=== PATIENT | male | born 1940 | race Caucasian/White ===

== ENCOUNTER 2023-10-12 14:42 | Outpatient (RCR) | payer MEDICARE, OTHER, SELFPAY | END 2023-10-12 23:59 | disposition home or self-care (01) | LOC: RPT 14:42 | PROVIDERS: ATTENDING PHYSICIAN Internal Medicine Geriatric Medicine | DX: R26.0 Ataxic gait (principal); R26.2 Difficulty in walking, not elsewhere classified; M62.81 Muscle weakness (generalized); Z91.81 History of falling; Z73.6 Limitation of activities due to disability | CPT/HCPCS: 97110; 97112; 97162; 97530 ==

== ENCOUNTER 2023-11-22 11:32 | Outpatient (RCR) | payer MEDICARE, OTHER, SELFPAY | END 2023-11-22 23:59 | disposition home or self-care (01) | LOC: RST 11:32 | PROVIDERS: ATTENDING PHYSICIAN Internal Medicine Geriatric Medicine | DX: G20.C Parkinsonism, unspecified (principal); R41.841 Cognitive communication deficit | CPT/HCPCS: 96125; 97110; 97112; 97116; 97129; 97130; 97167; 97530 ==

== ENCOUNTER 2023-12-25 10:46 | Outpatient (RCR) | payer MEDICARE, OTHER, SELFPAY | END 2023-12-25 23:59 | disposition home or self-care (01) | LOC: RST 10:46 | PROVIDERS: ATTENDING PHYSICIAN Internal Medicine Geriatric Medicine | DX: R26.0 Ataxic gait (principal); Z91.81 History of falling; R41.841 Cognitive communication deficit; G20.C Parkinsonism, unspecified; R26.2 Difficulty in walking, not elsewhere classified; M62.81 Muscle weakness (generalized); Z73.6 Limitation of activities due to disability | CPT/HCPCS: 97110; 97112; 97116; 97129; 97130; 97530 ==

== ENCOUNTER → 2024-02-18 08:06 | Outpatient (REF) | payer MEDICARE, OTHER, SELFPAY ==
[2024-02-18 08:55] LABS: % Basophils 0.8 % (0-2); % Eosinophils 4.7 % (0-6); % Immature Granulocytes 0.3 % (0-0.5); % Lymphocytes 25.9 % (20.5-51.1); % Neutrophils 61.3 % (42.2-75.2); Absolute Basophils 0.1 10^3/uL (0-0.2); Absolute Eosinophils 0.3 10^3/uL (0-0.7); Absolute Lymphocytes 1.9 10^3/uL (1.2-3.4); Absolute Monocytes 0.5 10^3/uL (0.1-0.6); Absolute Neutrophils 4.4 10^3/uL (1.4-6.5); Hematocrit 40.5 % (39.0-52.0); Hemoglobin 13.2 g/dL (13.0-18.0); Mean Corp Hgb Conc. 32.6 g/dL (33.0-37.0); Mean Corpuscular Hgb 34.6 pg (27.0-31.0); Mean Platelet Volume 9.1 fL (7.4-10.4); Nucleated Red Blood Cells % 0 % (-); Platelet Count 194 10^3/uL (130-400); Red Blood Cell Count 3.82 10^6/uL (4.70-6.10); White Blood Cell Count 7.2 10^3/uL (4.8-10.8)
[2024-02-18 09:20] LABS: ALT (SGPT) 13 U/L (0-50); AST (SGOT) 13 U/L (17-59); Albumin 3.8 g/dl (3.5-5.0); Alkaline Phosphatase 107 U/L (38-126); Blood Urea Nitrogen 23 mg/dl (9-20); Calcium 9.3 mg/dl (8.4-10.2); Carbon Dioxide 27 mmol/L (22-30); Chloride 106 mmol/L (98-107); Glucose 90 mg/dl (70-99); HDL Cholesterol 58 mg/dl; LDL Cholesterol, Calculated 50 mg/dl; Potassium 4.6 mmol/L (3.5-5.1); Sodium 140 mmol/L (135-145); Total Bilirubin 0.6 mg/dl (0.2-1.3); Total Cholesterol 119 mg/dl (50-199); Total Protein 6.6 g/dl (6.3-8.2); Triglyceride 58 mg/dl (10-149); Very Low Density Lipoprotein 11 mg/dl (0-30); eGFR > 60.00
[2024-02-18 09:27] LABS: Vitamin D, 25-OH*** 54.4 ng/mL (30-80)
== END ==
LOC: REG 08:06
PROVIDERS: ATTENDING PHYSICIAN Internal Medicine Geriatric Medicine
DX: G20.A1 Parkinson's disease without dyskinesia, without mention of fluctuations (principal); E78.2 Mixed hyperlipidemia; I10 Essential (primary) hypertension; R26.0 Ataxic gait; R33.8 Other retention of urine; N40.1 Benign prostatic hyperplasia with lower urinary tract symptoms; F02.80 Dementia in other diseases classified elsewhere, unspecified severity, without behavioral disturbance, psychotic disturbance, mood disturbance, and anxiety; I49.3 Ventricular premature depolarization; Z91.81 History of falling; E55.9 Vitamin D deficiency, unspecified; Z13.89 Encounter for screening for other disorder
CPT/HCPCS: 36415; 80053; 80061; 82306; 85025

== ENCOUNTER → 2024-03-18 11:04 | Outpatient (REF) | payer MEDICARE, OTHER, SELFPAY | LOC: RCS 11:04 | PROVIDERS: ATTENDING PHYSICIAN Internal Medicine Cardiovascular Disease; FAMILY PHYSICIAN Internal Medicine Geriatric Medicine | DX: I34.0 Nonrheumatic mitral (valve) insufficiency (principal) | CPT/HCPCS: 93306 ==

== ENCOUNTER → 2024-03-20 13:05 | Outpatient (REF) | payer MEDICARE, OTHER, SELFPAY ==
[2024-03-20 15:22] LABS: Free T4 1.12 ng/dl (0.78-2.19)
[2024-03-20 15:36] LABS: TSH 2.14 uIU/ml (0.47-4.68)
[2024-03-20 15:55] LABS: Vitamin B12 477 pg/ml (239-931)
[2024-03-21 09:25] LABS: Glycohemoglobin (HgbA1c) 4.8 % (4.0-5.6)
[2024-03-23 02:24] LABS: ANA, IgG Reflex to HEp-2 Detected (None Detected)
== END ==
LOC: REG 13:05
PROVIDERS: ATTENDING PHYSICIAN Psychiatry & Neurology Neuromuscular Medicine; FAMILY PHYSICIAN Internal Medicine Geriatric Medicine
DX: E13.42 Other specified diabetes mellitus with diabetic polyneuropathy (principal); E03.9 Hypothyroidism, unspecified; G60.8 Other hereditary and idiopathic neuropathies; G62.2 Polyneuropathy due to other toxic agents; E53.8 Deficiency of other specified B group vitamins
CPT/HCPCS: 36415; 82607; 82784; 83036; 83521; 83921; 84155; 84165; 84439; 84443; 86038; 86334; 86618

== ENCOUNTER 2024-04-07 12:22 | Outpatient (RCR) | payer MEDICARE, OTHER, SELFPAY | END 2024-04-23 11:26 | disposition home or self-care (01) | LOC: RPT 12:22 | PROVIDERS: ATTENDING PHYSICIAN Internal Medicine Geriatric Medicine | DX: G20.A1 Parkinson's disease without dyskinesia, without mention of fluctuations (principal); R26.89 Other abnormalities of gait and mobility; Z73.6 Limitation of activities due to disability | CPT/HCPCS: 97162 ==

== ENCOUNTER 2024-04-09 10:48 | Emergency (ER) | payer MEDICARE, OTHER, SELFPAY ==
[2024-04-09 10:54] VITALS: BP 129/71
[2024-04-09 11:12] LABS: % Basophils 0.8 % (0-2); % Eosinophils 3.4 % (0-6); % Immature Granulocytes 0.3 % (0-0.5); % Lymphocytes 21.2 % (20.5-51.1); % Monocytes 5.6 % (1.7-9.3); % Neutrophils 68.7 % (42.2-75.2); Absolute Basophils 0.1 10^3/uL (0-0.2); Absolute Eosinophils 0.3 10^3/uL (0-0.7); Absolute Lymphocytes 1.6 10^3/uL (1.2-3.4); Absolute Monocytes 0.4 10^3/uL (0.1-0.6); Absolute Neutrophils 5.1 10^3/uL (1.4-6.5); Hemoglobin 13.8 g/dL (13.0-18.0); Mean Corp Hgb Conc. 34.5 g/dL (33.0-37.0); Mean Corpuscular Hgb 34.8 pg (27.0-31.0); Mean Corpuscular Volume 100.8 fL (80.0-94.0); Mean Platelet Volume 9.4 fL (7.4-10.4); Nucleated Red Blood Cells % 0 % (-); Platelet Count 185 10^3/uL (130-400); Red Blood Cell Count 3.97 10^6/uL (4.70-6.10); Red Cell Dist. Width 13.1 % (11.5-14.5); White Blood Cell Count 7.5 10^3/uL (4.8-10.8)
[2024-04-09 11:30] LABS: ALT (SGPT) < 10 U/L (0-50); AST (SGOT) 13 U/L (17-59); Albumin 4.3 g/dl (3.5-5.0); Alkaline Phosphatase 92 U/L (38-126); Blood Urea Nitrogen 21 mg/dl (9-20); Calcium 9.4 mg/dl (8.4-10.2); Carbon Dioxide 25 mmol/L (22-30); Chloride 103 mmol/L (98-107); Glucose 110 mg/dl (70-99); Potassium 4.1 mmol/L (3.5-5.1); Sodium 137 mmol/L (135-145); Total Protein 7.2 g/dl (6.3-8.2); eGFR > 60.00
[2024-04-09 11:34] VITALS: BP 134/69
[2024-04-09 12:00] VITALS: BP 136/64
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
[2024-04-09 12:57] LABS: Troponin I < 0.012 ng/ml
[2024-04-09 13:53] VITALS: BP 169/72
[2024-04-09 14:15] VITALS: BP 160/70; BP 169/72; BP 173/70; PULSE 63; PULSE 66; PULSE 68; O2SAT 98
--- NOTE | 2024-04-09 15:25 | CM ---
Chart reviewed. CM consult placed for discharge needs. CM introduced self and role.
also at bedisde. They were agreeable to PT's recommendations for home health care.
[facility] referral placed. In-house [facility] liaison also made aware. BERNARD also made aware.
== END 2024-04-09 15:22 | disposition home or self-care (01) ==
LOC: EMR 10:48
PROVIDERS: Physician Assistant; EMERGENCY PHYSICIAN Emergency Medicine; FAMILY PHYSICIAN Internal Medicine Geriatric Medicine
DX: R53.1 Weakness (principal); R26.2 Difficulty in walking, not elsewhere classified; W07.XXXA Fall from chair, initial encounter; F02.80 Dementia in other diseases classified elsewhere, unspecified severity, without behavioral disturbance, psychotic disturbance, mood disturbance, and anxiety; G20.C Parkinsonism, unspecified; D46.9 Myelodysplastic syndrome, unspecified; I10 Essential (primary) hypertension; N40.1 Benign prostatic hyperplasia with lower urinary tract symptoms; R33.8 Other retention of urine; Z79.82 Long term (current) use of aspirin; Z98.0 Intestinal bypass and anastomosis status; Z86.73 Personal history of transient ischemic attack (TIA), and cerebral infarction without residual deficits; Z87.442 Personal history of urinary calculi; Z87.440 Personal history of urinary (tract) infections; Z86.718 Personal history of other venous thrombosis and embolism; Z94.84 Stem cells transplant status; Z94.81 Bone marrow transplant status; Z88.1 Allergy status to other antibiotic agents
CPT/HCPCS: 99284; 70450; 71046; 80053; 84484; 85025; 93005

== ENCOUNTER → 2024-04-11 16:12 | Outpatient (REF) | payer MEDICARE, OTHER, SELFPAY ==
[2024-04-11 16:46] LABS: Urine Albumin 1+ (Neg - Trace); Urine Bilirubin Negative (Negative); Urine Character Very Cloudy (Clear); Urine Color Yellow; Urine Glucose Negative (Negative); Urine Ketone Trace (Negative); Urine Leukocyte 2+ (Negative); Urine Nitrite Positive (Negative); Urine Occult Blood Trace (Negative); Urine Urobilinogen Negative (Neg - 1+)
[2024-04-11 16:52] LABS: Urine Bacteria Many (Negative); Urine Mucus Many; Urine Red Blood Cell 0-2 /HPF (0-2); Urine White Cell >100 /HPF (0-5)
== END ==
LOC: REG 16:12
PROVIDERS: ATTENDING PHYSICIAN Nurse Practitioner Family
DX: R33.8 Other retention of urine (principal)
CPT/HCPCS: 81003; 81015; 87086

== ENCOUNTER → 2024-04-18 13:15 | Outpatient (REF) | payer MEDICARE, OTHER, SELFPAY ==
[2024-04-18 14:07] LABS: Urine Albumin Trace (Neg - Trace); Urine Bilirubin Negative (Negative); Urine Character Very Cloudy (Clear); Urine Color Yellow; Urine Glucose Negative (Negative); Urine Ketone 1+ (Negative); Urine Leukocyte 2+ (Negative); Urine Nitrite Positive (Negative); Urine Occult Blood 3+ (Negative); Urine Urobilinogen Negative (Neg - 1+)
[2024-04-18 14:24] LABS: Urine Triple Phosphate Crystal Present; Urine White Cell 30-40 /HPF (0-5)
[2024-04-18 14:25] LABS: Urine Amorphous Seen
[2024-04-18 14:26] LABS: Urine Bacteria Moderate (Negative)
== END ==
LOC: REG 13:15
PROVIDERS: ATTENDING PHYSICIAN Nurse Practitioner Family
DX: R82.90 Unspecified abnormal findings in urine (principal)
CPT/HCPCS: 81003; 81015; 87086

== ENCOUNTER → 2024-04-21 13:42 | Outpatient (REF) | payer MEDICARE, OTHER, SELFPAY | LOC: MRI 3T 13:42 | PROVIDERS: ATTENDING PHYSICIAN Psychiatry & Neurology Neuromuscular Medicine; FAMILY PHYSICIAN Internal Medicine Geriatric Medicine; REFERRING PHYSICIAN Psychiatry & Neurology Behavioral Neurology & Neuropsychiatry | DX: I63.312 Cerebral infarction due to thrombosis of left middle cerebral artery (principal); G62.9 Polyneuropathy, unspecified | CPT/HCPCS: 36415; 70551; 82784; 83521; 84155; 84165; 86334 ==

== ENCOUNTER → 2024-05-09 11:37 | Outpatient (REF) | payer MEDICARE, OTHER, SELFPAY ==
[2024-05-09 12:14] LABS: Urine Albumin 1+ (Neg - Trace); Urine Bilirubin Negative (Negative); Urine Character Very Cloudy (Clear); Urine Color Yellow; Urine Glucose Negative (Negative); Urine Ketone 1+ (Negative); Urine Leukocyte 2+ (Negative); Urine Nitrite Positive (Negative); Urine Occult Blood Trace (Negative); Urine Specific Gravity 1.025 (<1.030); Urine Urobilinogen Negative (Neg - 1+)
[2024-05-09 12:44] LABS: Urine Bacteria Many (Negative); Urine Red Blood Cell 0-2 /HPF (0-2); Urine Squamous Cell 0-2 /LPF (Few); Urine White Cell 60-70 /HPF (0-5)
== END ==
LOC: REG 11:37
PROVIDERS: ATTENDING PHYSICIAN Internal Medicine Geriatric Medicine
DX: R39.9 Unspecified symptoms and signs involving the genitourinary system (principal)
CPT/HCPCS: 81003; 81015; 87077; 87086

== ENCOUNTER 2024-05-17 16:21 | Inpatient (IN) | payer MEDICARE, OTHER, SELFPAY ==
[2024-05-17] VITALS (12 sets, daily range): BP systolic 113–179; BP diastolic 69–98; BMI 25.4; BMI 23.5
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
[2024-05-17 11:16] LABS: % Basophils 0.9 % (0-2); % Eosinophils 3.4 % (0-6); % Immature Granulocytes 0.3 % (0-0.5); % Lymphocytes 21.3 % (20.5-51.1); % Monocytes 8.4 % (1.7-9.3); % Neutrophils 65.7 % (42.2-75.2); Absolute Basophils 0.1 10^3/uL (0-0.2); Absolute Eosinophils 0.2 10^3/uL (0-0.7); Absolute Lymphocytes 1.4 10^3/uL (1.2-3.4); Absolute Monocytes 0.6 10^3/uL (0.1-0.6); Absolute Neutrophils 4.4 10^3/uL (1.4-6.5); Hematocrit 38.6 % (39.0-52.0); Hemoglobin 13.2 g/dL (13.0-18.0); Mean Corp Hgb Conc. 34.2 g/dL (33.0-37.0); Mean Corpuscular Hgb 34.4 pg (27.0-31.0); Mean Corpuscular Volume 100.5 fL (80.0-94.0); Mean Platelet Volume 9.1 fL (7.4-10.4); Nucleated Red Blood Cells % 0 % (-); Platelet Count 187 10^3/uL (130-400); Red Blood Cell Count 3.84 10^6/uL (4.70-6.10); Red Cell Dist. Width 13.1 % (11.5-14.5); White Blood Cell Count 6.8 10^3/uL (4.8-10.8)
[2024-05-17 11:30] LABS: ALT (SGPT) < 10 U/L (0-50); AST (SGOT) 22 U/L (17-59); Albumin 3.7 g/dl (3.5-5.0); Alkaline Phosphatase 103 U/L (38-126); Blood Urea Nitrogen 16 mg/dl (9-20); Calcium 9.1 mg/dl (8.4-10.2); Carbon Dioxide 29 mmol/L (22-30); Chloride 101 mmol/L (98-107); Glucose 94 mg/dl (70-99); Potassium 4.3 mmol/L (3.5-5.1); Sodium 137 mmol/L (135-145); Total Bilirubin 0.8 mg/dl (0.2-1.3); Total Protein 6.5 g/dl (6.3-8.2); eGFR > 60.00
[2024-05-17 11:41] LABS: COVID-19 Antigen Negative (Negative)
[2024-05-17 12:29] LABS: NT-proBNP 460 pg/ml
[2024-05-17 12:33] LABS: Urine Albumin Negative (Neg - Trace); Urine Bilirubin Negative (Negative); Urine Character Clear (Clear); Urine Color Yellow; Urine Glucose Negative (Negative); Urine Ketone Trace (Negative); Urine Leukocyte 1+ (Negative); Urine Nitrite Negative (Negative); Urine Occult Blood Negative (Negative); Urine Specific Gravity 1.015 (<1.030); Urine Urobilinogen Negative (Neg - 1+)
[2024-05-17 13:00] LABS: Urine Bacteria Few (Negative); Urine Red Blood Cell 0-2 /HPF (0-2); Urine Squamous Cell 0-2 /LPF (Few)
--- NOTE | 2024-05-17 14:10 | HPS.HSE ---
Family Physician
-
Family Physician: Jeremi Lund
Chief Complaint
-
weakness
History of Present Illness
HPI: 84-year-old male from home with PMH dementia, Parkinson's, chronic indwelling Harrison managed by Dr. Shah, HTN, HLD, stroke, MDS s/p stem cell transplant; p/w generalized weakness which has been waxing and waning over the last month. He
apparently also had some cloudy urine from his Harrison and decreased mental status (more sluggish and sleepy with less appetite).
His urine was tested twice by his primary care office and both were inconclusive or mixed angelo. Family started the pt with a 7-day course of Cipro on 04/28 and patient appeared to have gotten better. When they stopped the Cipro, he seemed to rebound
and declined again.
On 05/09, his urine culture grew multidrug-resistant E. coli. It was sensitive to nitrofurantoin so he was started on that and has taken several doses.
He seemed to have gotten better but declined again.
On DOA, he was unable to get out of bed, and his could not get him dressed. She feels that she could not take take of patient at home.
Medical History
Past Medical History
Past Medical History: Reports Other
Additional Past Medical History:
dementia,
Parkinson's,
chronic indwelling Harrison managed by Dr. Shah,
HTN,
HLD,
stroke,
MDS s/p stem cell transplant
Past Surgical History: Reports Other
Social History
Tobacco: Former Smoker (quit 25 years ago )
Alcohol: None
Personal:
Living: With Family
Family History
Family History: Not pertinent
Allergies / Home Medications
Allergies reflects when Allergies were last updated in [facility].
Home Medications with original date entered in [facility]
Allergy/Medication List:
Allergies
Allergy/AdvReac Type Severity Reaction Status Date / Time
sulfamethoxazole Allergy Unknown Unknown Verified 05/17/24 13:32
[From Bactrim]
trimethoprim [From Bactrim] Allergy Unknown Unknown Verified 05/17/24 13:32
levofloxacin [From Levaquin] Allergy Mental Verified 09/12/21 12:29
confusion
- 'went
blank'
Home Medications
acyclovir 800 mg tablet 800 mg PO BID Infection 10/11/20
atorvastatin 20 mg tablet 20 mg PO DAILY High cholesterol 10/11/20
memantine 10 mg tablet 10 mg PO BID memory 10/11/20
multivitamin with folic acid 400 mcg tablet (Tab-A-Piedad) 1 tab PO DAILY Supplement 10/11/20
rivastigmine 4.6 mg/24 hour transdermal patch 1 patch transdermal DAILY parkinson 10/11/20
ascorbic acid (vitamin C) 500 mg tablet (Vitamin C) 500 mg PO DAILY 05/17/24
carbidopa 25 mg-levodopa 100 mg tablet 1 tab PO BID@0800,1300,2000 05/17/24
carbidopa ER 25 mg-levodopa 100 mg tablet,extended release 1 tab PO HS 05/17/24
ipratropium bromide 21 mcg (0.03 %) nasal spray 2 spray intranasal BID 05/17/24
methenamine hippurate 1 gram tablet 1 g PO BID 05/17/24
nitrofurantoin monohydrate/macrocrystals 100 mg capsule 100 mg PO Q12H 05/17/24
peg 400-propylene glycol (PF) 0.4 %-0.3 % eye drops in a dropperette (Systane (PF)) 1 drp BOTH EYES 6XD PRN dry eyes 05/17/24
Review of Systems
-
Neurological: Reports See HPI and Weakness
Physical Exam
Vital Signs
Vital Signs
Temp Pulse Resp BP Pulse Ox
37.0 C 69 12 168/77 98
05/17/24 09:57 05/17/24 13:00 05/17/24 13:00 05/17/24 13:00 05/17/24 13:00
Physical Exam
General: Well Developed, Well Nourished, No Apparent Distress, Comfortable, Conversant and Appears Chronically Ill
HEENT: NormoCephalic, Moist mucous membranes and Atraumatic
Respiratory: Clear and Non Labored Respirations; No Accessory Resp Muscle Use
Cardiac: S1/S2 and Regular Rhythm; No Murmur or Rub
GI: Soft, Non Tender, Non Distended and Normal Bowel Sounds; No Organomegaly
Rectal: Deferred by Provider
Musculoskeletal: No Clubbing, No Cyanosis, Edema, Left Lower Extremity (mild) and Edema, Right Lower Extremity (mild)
Skin: No Rash
Neuro: Awake and Alert
Psych: Calm and Intact Judgment/Insight (somewhat)
Laboratory Results
-
05/17/24 10:59
05/17/24 10:59
Laboratory Results
Total Bilirubin 0.8 mg/dl (0.2-1.3) 05/17/24 10:59
AST 22 U/L (17-59) 05/17/24 10:59
ALT < 10 U/L (0-50) 05/17/24 10:59
Alkaline Phosphatase 103 U/L (38-126) 05/17/24 10:59
Data Reviewed
-
Lab Data: Labs Reviewed by me
Impression/Plan
-
HPI: 84-year-old male from home with PMH dementia, Parkinson's, chronic indwelling Harrison managed by Dr. Shah, HTN, HLD, stroke, MDS s/p stem cell transplant; p/w generalized weakness which has been waxing and waning over the last month. He
apparently also had some cloudy urine from his Harrison and decreased mental status (more sluggish and sleepy with less appetite).
His urine was tested twice by his primary care office and both were inconclusive or mixed angelo. Family started the pt with a 7-day course of Cipro on 04/28 and patient appeared to have gotten better. When they stopped the Cipro, he seemed to rebound
and declined again.
On 05/09, his urine culture grew multidrug-resistant E. coli. It was sensitive to nitrofurantoin so he was started on that and has taken several doses.
He seemed to have gotten better but declined again.
On DOA, he was unable to get out of bed, and his could not get him dressed. She feels that she could not take take of patient at home.
A/P:
# Generalized weakness, may be due to recurrent complicated UTI vs progression of Parkinson's and dementia
# UTI is related to chronic Harrison
Of note, patient was recently treated with Cipro started on 04/28 for 7 days, then nitrofurantoin started on 05/09
Follow urine culture
Start empiric antibiotic with Merrem until culture result is out
PT OT eval
CT head ordered in ER for his weakness, follow-up report
Chronic harrison was changed in ED on admission
# Mild BL LE edema
IV Lasix 20 mg x1
Recent echo from 02/2024: EF 55 and 60% with mild concentric LVH and stage II diastolic dysfunction. Mild mitral regurgitation.
# Dementia
# Parkinson's disease
# History of stroke
# Ambulatory dysfunction
Cont GRAPHICS MANAGER meds
PT OT eval
# Chronic indwelling Harrison managed
# h/o BPH
Chronic harrison was changed in ED on admission
# HLD
statin
# Essential HTN
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
Cont GRAPHICS MANAGER chronic Acyclovir
DVT ppx: Lovenox SQ
Full code for now unless changes later
[2024-05-17] MEDS: LASIX 20 MG IV (16:23)
--- NOTE | 2024-05-17 18:10 | PTCARENOTE ---
Patient admitted from ED into room 436-2, pulled over from stretcher to bed. AAOx3. Patient with rivastigmine patch to L chest. Daughter and at bedside, oriented to plan of care. Call palacio within reach, bed alarm in place.
[2024-05-17] MEDS: LOVENOX 40 MG SC (19:06)
[2024-05-17] MEDS: MERREM 500 MG IV (19:47)
[2024-05-17] MEDS: STERILE WATER FOR INJECTION 10 ML IV (19:48)
[2024-05-17] MEDS: ZOVIRAX 800 MG PO (19:49)
[2024-05-17] MEDS: NAMENDA 10 MG PO (19:49)
[2024-05-17] MEDS: SINEMET 25-100 1 TABLET PO (19:49)
[2024-05-17] MEDS: FLUSH (NSS) 1 FLUSH IV (19:51)
[2024-05-17] MEDS: SINEMET CR 25-100 (EXTENDED RELEASE) 1 TABLET PO (21:39)
[2024-05-18] MEDS: MERREM 500 MG IV ×4 (02:09→20:02)
[2024-05-18] MEDS: STERILE WATER FOR INJECTION 10 ML IV ×4 (02:09→20:01)
[2024-05-18 07:00] VITALS: BP 153/76
[2024-05-18] MEDS: EXELON PATCH 4.6 MG TRANSDERM (07:27)
[2024-05-18] MEDS: SINEMET 25-100 1 TABLET PO ×3 (07:29→20:02)
[2024-05-18] MEDS: ZOVIRAX 800 MG PO ×2 (07:29→20:02)
[2024-05-18] MEDS: LIPITOR 20 MG PO (07:29)
[2024-05-18] MEDS: NAMENDA 10 MG PO ×2 (07:29→20:02)
--- NOTE | 2024-05-18 08:59 | W.PN.HOSP.TC ---
Addendum entered and electronically signed by Janel Whitfield MD 05/18/24 13:04:
diet changed to puree thin per SPL eval
Addendum entered and electronically signed by Janel Whitfield MD 05/18/24 10:14:
echo ordered per family request
Original Note:
Today's Communication/Plan
-
see A/P
Assessment / Plan
Assessment / Plan
HPI: 84-year-old male from home with PMH dementia, Parkinson's, chronic indwelling Harrison managed by Dr. Shah, HTN, HLD, stroke, MDS s/p stem cell transplant; p/w generalized weakness which has been waxing and waning over the last month. He
apparently also had some cloudy urine from his Harrison and decreased mental status (more sluggish and sleepy with less appetite).
His urine was tested twice by his primary care office and both were inconclusive or mixed angelo. Family started the pt with a 7-day course of Cipro on 04/28 and patient appeared to have gotten better. When they stopped the Cipro, he seemed to rebound
and declined again.
On 05/09, his urine culture grew multidrug-resistant E. coli. It was sensitive to nitrofurantoin so he was started on that and has taken several doses.
He seemed to have gotten better but declined again.
On DOA, he was unable to get out of bed, and his could not get him dressed. She feels that she could not take take of patient at home.
A/P:
# Generalized weakness, may be due to recurrent complicated UTI vs progression of Parkinson's and dementia
# UTI is related to chronic Harrison
Of note, patient was recently treated with Cipro on 04/28 for 7 days, then nitrofurantoin started on 05/09
Chronic harrison was changed in ED on admission
Follow urine culture
Cont empiric antibiotic with Merrem until culture result is out
PT OT eval
CT head from admission showed no acute intracranial abnormality.
# Mild BL LE edema
s/p IV Lasix 20 mg x1
Recent echo from 02/2024: EF 55 and 60% with mild concentric LVH and stage II diastolic dysfunction. Mild mitral regurgitation.
# Dementia
# Parkinson's disease
# History of stroke
# Ambulatory dysfunction
Cont ROOFING LAYER meds
PT OT eval
SPL eval
# Chronic indwelling Harrison
# h/o BPH
Chronic harrison was changed in ED on admission
# HLD
statin
# Essential HTN
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
Cont ROOFING LAYER chronic Acyclovir
DVT ppx: Lovenox SQ
Full code for now unless changes later
Anticipated Discharge: 24 - 48 hours
Subjective/Interval History
-
Date of Service: May 18, 2024
Objective Data
-
Labs:
Laboratory Results
05/18/24
08:46
WBC Pending
Hgb Pending
Hct Pending
Plt Count Pending
Sodium Pending
Potassium Pending
Chloride Pending
Carbon Dioxide Pending
BUN Pending
Creatinine Pending
Glucose Pending
Calcium Pending
Vital Signs:
Vital Signs
Temp Pulse Resp BP Pulse Ox
36.6 C 82 18 153/76 97
05/18/24 07:00 05/18/24 07:00 05/18/24 07:00 05/18/24 07:00 05/18/24 07:00
I&O
05/17/24 05/18/24 05/19/24
06:59 06:59 06:59
Intake Total 120 / 120
Output Total 1150 / 1150
Balance -1030 / -1030
Review of Systems
-
All other systems: Reviewed and negative
Physical Exam
-
General: Well Developed, Well Nourished, No Apparent Distress, Comfortable and Conversant; Negative Respiratory Distress
HEENT: Normocephalic, Atraumatic, Nose Appears Normal and Ears Appear Normal; Negative Oxygen
Respiratory: Clear to Auscultation and Non Labored Respirations; Negative Accessory Resp Muscle Use
Cardiac: Regular Rhythm and S1/S2
GI: Soft, Nontender, Nondistended and Normal Bowel Sounds
Skin: Warm and Dry
Neuro: Awake and Alert
Psych: Calm
Data Reviewed
-
CT Scan: Report Reviewed by me
Labs: Labs Reviewed by me
[2024-05-18 09:29] LABS: Blood Urea Nitrogen 20 mg/dl (9-20); Calcium 8.8 mg/dl (8.4-10.2); Carbon Dioxide 25 mmol/L (22-30); Chloride 101 mmol/L (98-107); Estimated Creatinine Clearance 72 ml/min; Glucose 91 mg/dl (70-99); Magnesium 1.9 mg/dl (1.6-2.3); Potassium 4.1 mmol/L (3.5-5.1); Sodium 134 mmol/L (135-145); eGFR > 60.00
[2024-05-18 09:47] LABS: % Basophils 0.8 % (0-2); % Eosinophils 3.4 % (0-6); % Immature Granulocytes 0.3 % (0-0.5); % Lymphocytes 19.3 % (20.5-51.1); % Monocytes 9.5 % (1.7-9.3); % Neutrophils 66.7 % (42.2-75.2); Absolute Basophils 0.1 10^3/uL (0-0.2); Absolute Eosinophils 0.2 10^3/uL (0-0.7); Absolute Lymphocytes 1.4 10^3/uL (1.2-3.4); Absolute Monocytes 0.7 10^3/uL (0.1-0.6); Absolute Neutrophils 4.8 10^3/uL (1.4-6.5); Hematocrit 35.9 % (39.0-52.0); Hemoglobin 12.4 g/dL (13.0-18.0); Mean Corp Hgb Conc. 34.5 g/dL (33.0-37.0); Mean Corpuscular Hgb 35.2 pg (27.0-31.0); Mean Platelet Volume 9.5 fL (7.4-10.4); Nucleated Red Blood Cells % 0 % (-); Platelet Count 187 10^3/uL (130-400); Red Blood Cell Count 3.52 10^6/uL (4.70-6.10); Red Cell Dist. Width 13.1 % (11.5-14.5); White Blood Cell Count 7.1 10^3/uL (4.8-10.8)
--- NOTE | 2024-05-18 13:00 | PTOTSP ---
SPEECH THERAPY SWALLOW EVALUATION:
Patient exhibits clinical signs of oropharyngeal dysphagia, likely chronic related to Parkinson's disease, dementia, CVA, and acutely exacerbated by UTI. Patient remains at risk for aspiration and related complications given confusion. CXR currently
clear of new lung opacity. WBC WNL. Respiratory status stable (breathing comfortably on room air). Recommend IDDSI Level 4 Puree diet, thin liquids. Medications crushed in puree. Aspiration precautions includin:1 assist/100% supervision; Small
single sips/bites; Slow rate; Upright positioning; NO STRAWS; Checking for pocketing; Only feed when awake/alert; Alternate textures; Ensure patient swallows prior to next bite; Ensure oral cavity clear at end of meal; Reduce distractions while
eating; Reflux precautions. Monitor for signs of aspiration. Oral care 3x/day. ST to follow, assess diet tolerance and modify as appropriate, determine indication for repeat VSE if indicated, and provide continued education regarding aspiration
risks and precautions.
RECOMMEND:
1) IDDSI Level 4 Puree diet, thin liquids
2) Medications crushed in puree
3) Aspiration precautions includin:1 assist/100% supervision; Small single sips/bites; Slow rate; Upright positioning; NO STRAWS; Checking for pocketing; Only feed when awake/alert; Alternate textures; Ensure patient swallows prior to next bite;
Ensure oral cavity clear at end of meal; Reduce distractions while eating; Reflux precautions. Monitor for signs of aspiration
4) Oral care 3x/day
5) ST to follow
[2024-05-18 15:00] VITALS: BP 138/59
[2024-05-18 15:07] VITALS: BP 135/61; BP 136/66; PULSE 82
[2024-05-18 15:15] VITALS: BP 135/61
[2024-05-18] MEDS: LOVENOX 40 MG SC (17:17)
[2024-05-18] MEDS: SINEMET CR 25-100 (EXTENDED RELEASE) 1 TABLET PO (21:15)
[2024-05-18 23:43] VITALS: BP 129/62
[2024-05-19] MEDS: STERILE WATER FOR INJECTION 10 ML IV ×4 (02:14→20:09)
[2024-05-19] MEDS: MERREM 500 MG IV ×4 (02:14→20:09)
[2024-05-19 07:30] VITALS: BP 149/75
[2024-05-19 08:07] LABS: % Basophils 0.7 % (0-2); % Eosinophils 3.1 % (0-6); % Immature Granulocytes 0.3 % (0-0.5); % Lymphocytes 21.9 % (20.5-51.1); % Monocytes 10.3 % (1.7-9.3); % Neutrophils 63.7 % (42.2-75.2); Absolute Basophils 0.1 10^3/uL (0-0.2); Absolute Eosinophils 0.2 10^3/uL (0-0.7); Absolute Lymphocytes 1.6 10^3/uL (1.2-3.4); Absolute Monocytes 0.7 10^3/uL (0.1-0.6); Absolute Neutrophils 4.6 10^3/uL (1.4-6.5); Hematocrit 34.4 % (39.0-52.0); Hemoglobin 11.8 g/dL (13.0-18.0); Mean Corp Hgb Conc. 34.3 g/dL (33.0-37.0); Mean Corpuscular Volume 102.1 fL (80.0-94.0); Mean Platelet Volume 9.5 fL (7.4-10.4); Nucleated Red Blood Cells % 0 % (-); Platelet Count 178 10^3/uL (130-400); Red Blood Cell Count 3.37 10^6/uL (4.70-6.10); Red Cell Dist. Width 13.1 % (11.5-14.5); White Blood Cell Count 7.2 10^3/uL (4.8-10.8)
--- NOTE | 2024-05-19 08:47 | VNURNOTE ---
Chart reviewed. Patient is current with [facility] nursing, PT, OT, BURN NURSE. Will continue to follow hospital course and DC plans.
[2024-05-19 09:23] LABS: Blood Urea Nitrogen 25 mg/dl (9-20); Calcium 8.8 mg/dl (8.4-10.2); Carbon Dioxide 24 mmol/L (22-30); Chloride 101 mmol/L (98-107); Estimated Creatinine Clearance 65 ml/min; Glucose 88 mg/dl (70-99); Potassium 4.2 mmol/L (3.5-5.1); Sodium 135 mmol/L (135-145); eGFR > 60.00
--- NOTE | 2024-05-19 09:33 | W.PN.HOSP.TC ---
Today's Communication/Plan
-
see bold
Assessment / Plan
Assessment / Plan
HPI: 84-year-old male from home with PMH dementia, Parkinson's, chronic indwelling Harrison managed by Dr. Shah, HTN, HLD, stroke, MDS s/p stem cell transplant; p/w generalized weakness which has been waxing and waning over the last month. He
apparently also had some cloudy urine from his Harrison and decreased mental status (more sluggish and sleepy with less appetite).
His urine was tested twice by his primary care office and both were inconclusive or mixed angelo. Family started the pt with a 7-day course of Cipro on 04/28 and patient appeared to have gotten better. When they stopped the Cipro, he seemed to rebound
and declined again.
On 05/09, his urine culture grew multidrug-resistant E. coli. It was sensitive to nitrofurantoin so he was started on that and has taken several doses.
He seemed to have gotten better but declined again.
On DOA, he was unable to get out of bed, and his could not get him dressed. She feels that she could not take take of patient at home.
A/P:
# Generalized weakness, may be due to recurrent complicated UTI vs progression of Parkinson's and dementia
# UTI is related to chronic Harrison
Of note, patient was recently treated with Cipro on 04/28 for 7 days, then nitrofurantoin started on 05/09
Chronic harrison was changed in ED on admission
Urine culture negative, consult ID, continue Merrem
CT head from admission showed no acute intracranial abnormality.
# Mild BL LE edema
s/p IV Lasix 20 mg x1
Recent echo from 02/2024: EF 55 and 60% with mild concentric LVH and stage II diastolic dysfunction. Mild mitral regurgitation.
Compression stockings
# Dementia
# Parkinson's disease
# History of stroke
# Ambulatory dysfunction
Cont AUTHOR meds
PT OT eval
SPL eval
#Valvular disease
Follow-up with usual asbestos cloth inspector Dr. Bucio outpatient
# Chronic indwelling Harrison
# h/o BPH
Chronic harrison was changed in ED on admission
# HLD
statin
# Essential HTN
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
Cont AUTHOR chronic Acyclovir
DVT ppx: Lovenox SQ
Full code for now unless changes later
Updated and daughter at bedside 05/19
Total time spent to see the patient on the floor, examine the patient, review data and lab results, discuss treatment plan with patient, nursing staff around 51 minutes.
Physical Exam
General: Appears lethargic, no acute distress
HEENT: Normocephalic, Atraumatic, EOMI, MMM
Respiratory: Clear to Auscultation bilaterally
Cardiac: Normal S1/S2, Regular Rate and Rhythm, systolic murmur radiating to the axilla
GI: Soft, Nontender, Nondistended, Normal Bowel Sounds
Extremities: No Clubbing, Cyanosis
Mild lower extremity edema
Psych: Calm, Cooperative
Derm: No Visible lesions
Anticipated Discharge: 24 - 48 hours
Subjective/Interval History
-
Date of Service: May 19, 2024
Patient seen and examined at bedside, who reports that he is more lethargic and less responsive than usual. No fever, no vomiting.
Objective Data
-
Labs:
Laboratory Results
05/19/24
07:35
WBC 7.2
Hgb 11.8 L
Hct 34.4 L
Plt Count 178
Sodium 135
Potassium 4.2
Chloride 101
Carbon Dioxide 24
BUN 25 H
Creatinine 1.0
Glucose 88
Calcium 8.8
Vital Signs:
Vital Signs
Temp Pulse Resp BP Pulse Ox
97.4 F 82 18 149/75 98
05/19/24 07:30 05/19/24 07:30 05/19/24 07:30 05/19/24 07:30 05/19/24 07:30
I&O
05/18/24 05/19/24 05/20/24
06:59 06:59 06:59
Intake Total 120 / 120 900 / 900
Output Total 1150 / 1150 1050 / 1050
Balance -1030 / -1030 -150 / -150
[2024-05-19] MEDS: EXELON PATCH 4.6 MG TRANSDERM (10:04)
[2024-05-19] MEDS: ZOVIRAX 800 MG PO ×2 (10:05→20:09)
[2024-05-19] MEDS: NAMENDA 10 MG PO ×2 (10:06→20:10)
[2024-05-19] MEDS: LIPITOR 20 MG PO (10:06)
[2024-05-19] MEDS: SINEMET 25-100 1 TABLET PO ×3 (10:06→20:10)
[2024-05-19 15:52] VITALS: BP 144/69
--- NOTE | 2024-05-19 17:00 | CM ---
nursing program manager reviewed patient's chart and met with patient and patient lives with spouse in a 2 story home with one step to enter, patient is independent with adl's and uses cane or walker with ambulation. nursing program manager reviewed physical therapy
notes and recommendation is for skilled placement options reviewed and dianntn and spouse have selected [facility], [facility] and [facility] referrals sent.
Pharmacy [facility] in [place]
PCP: Dr. Lund
Plan; Skilled placement when stable.
[2024-05-19] MEDS: LOVENOX 40 MG SC (20:08)
[2024-05-19] MEDS: SINEMET CR 25-100 (EXTENDED RELEASE) 1 TABLET PO (20:10)
[2024-05-19 23:45] VITALS: BP 150/80
[2024-05-20] MEDS: MERREM 500 MG IV ×3 (02:41→13:59)
[2024-05-20] MEDS: STERILE WATER FOR INJECTION 10 ML IV ×3 (02:41→13:58)
[2024-05-20 07:30] VITALS: BP 157/82
--- NOTE | 2024-05-20 07:35 | W.PN.HOSP.TC ---
Today's Communication/Plan
-
Await ID consult
Assessment / Plan
Assessment / Plan
HPI: 84-year-old male from home with PMH dementia, Parkinson's, chronic indwelling Harrison managed by Dr. Shah, HTN, HLD, stroke, MDS s/p stem cell transplant; p/w generalized weakness which has been waxing and waning over the last month. He
apparently also had some cloudy urine from his Harrison and decreased mental status (more sluggish and sleepy with less appetite).
His urine was tested twice by his primary care office and both were inconclusive or mixed angelo. Family started the pt with a 7-day course of Cipro on 04/28 and patient appeared to have gotten better. When they stopped the Cipro, he seemed to rebound
and declined again.
On 05/09, his urine culture grew multidrug-resistant E. coli. It was sensitive to nitrofurantoin so he was started on that and has taken several doses.
He seemed to have gotten better but declined again.
On DOA, he was unable to get out of bed, and his could not get him dressed. She feels that she could not take take of patient at home.
A/P:
# Generalized weakness, may be due to recurrent complicated UTI vs progression of Parkinson's and dementia
# UTI is related to chronic Harrison
Of note, patient was recently treated with Cipro on 04/28 for 7 days, then nitrofurantoin started on 05/09
Chronic harrison was changed in ED on admission
Urine culture negative, await ID, continue Merrem
CT head from admission showed no acute intracranial abnormality
#Toxic metabolic encephalopathy
B12/TSH normal
Supportive care
# Mild BL LE edema
s/p IV Lasix 20 mg x1
Recent echo from 02/2024: EF 55 and 60% with mild concentric LVH and stage II diastolic dysfunction. Mild mitral regurgitation.
Compression stockings
# Dementia
# Parkinson's disease
# History of stroke
# Ambulatory dysfunction
Cont BILLING ADJUDICATOR meds
PT rec SNF
SPL rec continue pur�ed diet, thin liquids, meds crushed in pur�e
#Valvular disease
05/19/24 echo w/ mod-sev , mod AR
Follow-up with usual water conservationist Dr. Bucio outpatient
# Chronic indwelling Harrison
# h/o BPH
Chronic harrison was changed in ED on admission
# HLD
statin
# Essential HTN
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
Cont BILLING ADJUDICATOR chronic Acyclovir
DVT ppx: Lovenox SQ
Full code for now unless changes later
Updated and daughter at bedside 05/20
Total time spent to see the patient on the floor, examine the patient, review data and lab results, discuss treatment plan with patient, nursing staff around 52 minutes.
Physical Exam
General: Appears lethargic, no acute distress
HEENT: Normocephalic, Atraumatic, EOMI, MMM
Respiratory: Clear to Auscultation bilaterally
Cardiac: Normal S1/S2, Regular Rate and Rhythm, systolic murmur radiating to the axilla
GI: Soft, Nontender, Nondistended, Normal Bowel Sounds
Extremities: No Clubbing, Cyanosis
Mild lower extremity edema
Psych: Calm, Cooperative
Anticipated Discharge: > 48 hours
Subjective/Interval History
-
Date of Service: May 20, 2024
Patient continues to be lethargic, not answering many questions. No fever, no vomiting.
Objective Data
-
Vital Signs:
Vital Signs
Temp Pulse Resp BP Pulse Ox
97.3 F 82 16 150/80 97
05/19/24 23:45 05/19/24 23:45 05/19/24 23:45 05/19/24 23:45 05/19/24 23:45
I&O
05/19/24 05/20/2424
06:59 06:59 06:59
Intake Total 900 / 900 300 / 300
Output Total 1050 / 1050 2160 / 2160
Balance -150 / -150 -1860 / -1860
[2024-05-20] MEDS: NAMENDA 10 MG PO ×2 (08:19→20:52)
[2024-05-20] MEDS: SINEMET 25-100 1 TABLET PO ×3 (08:20→20:53)
[2024-05-20] MEDS: EXELON PATCH 4.6 MG TRANSDERM (08:20)
[2024-05-20] MEDS: ZOVIRAX 800 MG PO ×2 (08:20→20:53)
[2024-05-20] MEDS: LIPITOR 20 MG PO (08:20)
[2024-05-20 08:50] LABS: NT-proBNP 347 pg/ml
[2024-05-20 13:03] VITALS: BP 139/75; PULSE 106; O2SAT 97
[2024-05-20 13:05] VITALS: BP 137/82; PULSE 82; O2SAT 97
[2024-05-20 13:19] LABS: TSH Reflex To Free T4 2.24 uIU/ml (0.47-4.68)
[2024-05-20 13:38] LABS: Vitamin B12 357 pg/ml (239-931)
--- NOTE | 2024-05-20 14:37 | CON.ID ---
Consultation
-
Date/Time Consultation Requested: 05/19/24 15:58
Date/Time Consultation Performed: 05/20/24 14:38
Requesting Provider: Dr Pickens
Performing Provider: Dr Hammonds
Reason for Consultation: UTI
Chief Complaint / Past History
Chief Complaint
weakness
History of Present Illness
Mr Hernandez is an 84 year old retired male with history of Parkinsons, Dementia, MDS s/p stem cell transplant 17 years ago, chronic harrison who presented here 05/17 for waxing and waning weakness x1 month. Saw PCP twice, urine culture was
polymicrobial twice, startd a 7 day course of ciprofloxacin on 04/28 with improvement, when ciprofloxacin stopped there was increase of his confusion. On 05/09 urine culture sent again and grew MDRO E coli - he was started on nitrofurantoin
(sensitive) and he took several doses of that with initial improvement. Then on the day of arrival he was unable to get out of bed and unable to dress himself.
At baseline patient walks with a walker, uses a full flight of stairs with bilateral rails.
Since arrival here he has been afebrile, bp stable, wbc initially 6.8 now 7.2, hgb 11.8, plt 178, no left shift, eos were present, cr 1.0, na 135, k 4.2, bnp 347, 05/09 ua 60-70 wbc/hpf and many bacteria, 05/17 UA 6-10 wbc/hpf and few bacteria, covid
ag neg, CXR no acute changes, last abdominal imaging was 03/16/20: mass with extrinsic compression on the bladder - most likely hematoma, small L renal calculus, 05/09 urine culture 100 K ESBL e coli, sensitive to nitrofurantoin which he was treated
with, 05/17 urine culture finalized negative, patient is currently on day 4 of meropenem. Harrison was changed in the ER on admission. ID is consulted for assistance with management. On PT evaluation today he remained full assist for tasks, he is now
answering simple questions yes no and denies: headaches, sinus tenderness, sore thorat, cough, sputum production, nausea, vomiting, diarrhea, suprapubic tenderness, new rashes. Family comment that [place] but
otherwise doesnt spend much time outside. MAR: no missed doses of sinemet
Past History
Additional Past Medical History:
dementia,
Parkinson's,
chronic indwelling Harrison managed by Dr. Shah,
HTN,
HLD,
stroke,
MDS s/p stem cell transplant
Past Surgical History: None
Allergy History:
levofloxacin [From Levaquin] Allergy (Verified 09/12/21 12:29)
Mental confusion - 'went blank'
sulfamethoxazole [From Bactrim] Allergy (Verified 05/19/24 16:12)
Unknown
trimethoprim [From Bactrim] Allergy (Verified 05/19/24 16:12)
Unknown
Medications Reviewed: Yes
Social History
Tobacco: Former Smoker
Alcohol: None
Drug: None
Family History
Family History: Not Pertinent
Review of Systems
Review of Systems
General: Negative Fever or Chills
All systems: All other systems were reviewed and were negative
Vital Signs
Temp Pulse Resp BP Pulse Ox
97.4 F 84 18 157/82 99
05/20/24 07:30 05/20/24 07:30 05/20/24 07:30 05/20/24 07:30 05/20/24 07:30
Physical Exam
Physical Exam
Constitutional: No Acute Distress and Chronically Ill
Cardiovascular: Regular Rate and S1/S2; Negative Murmur or Rub
Pulmonary: Clear and Symmetric; Negative Wheezes, Rales or Rhonchi
Gastrointestinal: Soft, Non Tender, Non Distended and Normal Bowel Sounds
Skin: Warm and Dry; Negative Rash or Jaundice
Neurological: Awake, Oriented (person, place; didnt respond to who is the president) and Other (cogwheeling RUE and pill rolling tremor noted)
Psychological: Calm
Lab / Diagnostic Study Results
05/19/24 07:35
05/19/24 07:35
Abs Immat Gran (auto) 0.0 10^3/uL (0-0.05) 05/19/24 07:35
Absolute Neuts (auto) 4.6 10^3/uL (1.4-6.5) 05/19/24 07:35
Absolute Lymphs (auto) 1.6 10^3/uL (1.2-3.4) 05/19/24 07:35
Absolute Monos (auto) 0.7 10^3/uL (0.1-0.6) H 05/19/24 07:35
Absolute Basos (auto) 0.1 10^3/uL (0-0.2) 05/19/24 07:35
Immature Gran % 0.3 % (0-0.5) 05/19/24 07:35
Neutrophils % 63.7 % (42.2-75.2) 05/19/24 07:35
Lymphocytes % 21.9 % (20.5-51.1) 05/19/24 07:35
Monocytes % 10.3 % (1.7-9.3) H 05/19/24 07:35
Eosinophils % 3.1 % (0-6) 05/19/24 07:35
Basophils % 0.7 % (0-2) 05/19/24 07:35
Ur Squamous Epith Cells 0-2 /LPF (Few) 05/17/24 10:59
Microbiology Results
Micro:
05/17/24 10:59 Urine Culture - Final
Urine NO GROWTH
Assessment / Plan
AMS/encephalopathy
Parkinons
Dementia
- 05/09 urine culture 100K ESBL E coli, 05/17 ua and urine culture on arrival no pyuria and culture negative
- ecw chart reveals macrobid prescribed 05/12, patient has thus completed at least 7, possibly as long as a 9 day course - which is generally sufficient for UTI
- no evidence of upper renal tract infection
- covid ag negative
- CXR no infiltrates
- blood cultures not indicated
- if confusion was ADR to macrobid then would have expected it to wear off by this time
- beta lactams are associated with confusion and patient already completed an adequate course - stopped
- can consider lumbar puncture and checking csf for cell count, culture, protein, glucose, meningitis panel if no improvement off of meropenem
- head CT obtained and nonrevealing
- if not improving would consider neurology consult as well
Care Review
Plan reviewed with: Physician (Dr Nelia oviedo)
[2024-05-20 15:33] VITALS: BP 147/78
--- NOTE | 2024-05-20 15:57 | CM ---
Referrals sent for skilled placement to [facility].
Plan; Skilled placement when stable.
[2024-05-20] MEDS: LOVENOX 40 MG SC (17:16)
[2024-05-20] MEDS: SINEMET CR 25-100 (EXTENDED RELEASE) 1 TABLET PO (21:45)
[2024-05-20 23:59] VITALS: BP 140/69
[2024-05-21 08:08] VITALS: BP 149/76
[2024-05-21] MEDS: NAMENDA 10 MG PO ×2 (08:14→19:47)
[2024-05-21] MEDS: ZOVIRAX 800 MG PO ×2 (08:14→19:47)
[2024-05-21] MEDS: EXELON PATCH 4.6 MG TRANSDERM (08:14)
[2024-05-21] MEDS: LIPITOR 20 MG PO (08:14)
[2024-05-21] MEDS: SINEMET 25-100 1 TABLET PO ×3 (08:14→19:47)
--- NOTE | 2024-05-21 08:23 | W.PN.ID1 ---
Date of Service
Date of Service: May 21, 2024
Today's Communication
- AMS improving today on my exam, PT will also reassess, can hold plan for LP at this time
Assessment / Plan
AMS/encephalopathy
Parkinons
Dementia
- 05/09 urine culture 100K ESBL E coli, 05/17 ua and urine culture on arrival no pyuria and culture negative
- ecw chart reveals macrobid prescribed 05/12, patient completed at least 7, possibly as long as a 9 day course - which is generally sufficient for UTI
- no evidence of upper renal tract infection
- covid ag negative
- CXR no infiltrates
- blood cultures not indicated
- if confusion was ADR to macrobid then would have expected it to wear off by this time
- beta lactams are associated with confusion and patient already completed an adequate course - stopped
- AMS improving today on my exam, PT will also reassess, can hold plan for LP at this time
Chief Complaint
-: Other (encephalopathy)
Subjective / Review of Systems
afebrile
bp stable
no events overnight
more alert today per and daughter at the bedside
Vital Signs / Physical Exam
Vital Signs
Vital Signs
Temp Pulse Resp BP Pulse Ox
97.0 F 86 16 140/69 98
05/20/24 23:59 05/20/24 23:59 05/20/24 23:59 05/20/24 23:59 05/20/24 23:59
Physical Exam
Constitutional: No Acute Distress and Chronically Ill
Cardiovascular: Regular Rate and S1/S2; Negative Murmur or Rub
Pulmonary: Clear and Symmetric; Negative Wheezes or Rales
Gastrointestinal: Soft, Non Tender, Non Distended and Normal Bowel Sounds
Skin: Warm and Dry; Negative Rash or Jaundice
Neurological: Awake, Alert and Other (followed inverted two step command correctly, able to partially complete serial 7s)
Objective Data
Lab Data
Lab Results
05/19/24 07:35
05/19/24 07:35
Estimated Creat Clear 65 ml/min 05/19/24 07:35
Total Bilirubin 0.8 mg/dl (0.2-1.3) 05/17/24 10:59
AST 22 U/L (17-59) 05/17/24 10:59
ALT < 10 U/L (0-50) 05/17/24 10:59
Alkaline Phosphatase 103 U/L (38-126) 05/17/24 10:59
Most recent labs reviewed.
Micro Results:
05/17/24 10:59 Urine Culture - Final
Urine NO GROWTH
Care Review
Plan reviewed with: Physician (Dr Pickens - no need for LP today)
--- NOTE | 2024-05-21 09:10 | W.PN.HOSP.TC ---
Today's Communication/Plan
-
Monitor off antibiotics
Assessment / Plan
Assessment / Plan
HPI: 84-year-old male from home with PMH dementia, Parkinson's, chronic indwelling Harrison managed by Dr. Shah, HTN, HLD, stroke, MDS s/p stem cell transplant; p/w generalized weakness which has been waxing and waning over the last month. He
apparently also had some cloudy urine from his Harrison and decreased mental status (more sluggish and sleepy with less appetite).
His urine was tested twice by his primary care office and both were inconclusive or mixed angelo. Family started the pt with a 7-day course of Cipro on 04/28 and patient appeared to have gotten better. When they stopped the Cipro, he seemed to rebound
and declined again.
On 05/09, his urine culture grew multidrug-resistant E. coli. It was sensitive to nitrofurantoin so he was started on that and has taken several doses.
He seemed to have gotten better but declined again.
On DOA, he was unable to get out of bed, and his could not get him dressed. She feels that she could not take take of patient at home.
A/P:
# Generalized weakness, may be due to recurrent complicated UTI vs progression of Parkinson's and dementia
# UTI is related to chronic Harrison
Of note, patient was recently treated with Cipro on 04/28 for 7 days, then nitrofurantoin started on 05/09
Chronic harrison was changed in ED on admission
Urine culture negative, appreciate ID input, recommend discontinuing Merrem, monitor off antibiotics
CT head from admission showed no acute intracranial abnormality
#Toxic metabolic encephalopathy
B12/TSH normal
Appreciate ID input, suspect secondary to side effects from merrem which was discontinued 05/20
Mentation much improved off Merrem, monitor off Merrem
# Mild BL LE edema
s/p IV Lasix 20 mg x1
Recent echo from 02/2024: EF 55 and 60% with mild concentric LVH and stage II diastolic dysfunction. Mild mitral regurgitation.
Compression stockings
# Dementia
# Parkinson's disease
# History of stroke
# Ambulatory dysfunction
Cont ACCOUNTS PAYABLE PROCESSOR meds
PT rec SNF
SPL rec continue pur�ed diet, thin liquids, meds crushed in pur�e
#Valvular disease
05/19/24 echo w/ mod-sev , mod AR
Follow-up with usual principal clerk typist Dr. Bucio outpatient
# Chronic indwelling Harrison
# h/o BPH
Chronic harrison was changed in ED on admission
# HLD
statin
# Essential HTN
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
Cont ACCOUNTS PAYABLE PROCESSOR chronic Acyclovir
DVT ppx: Lovenox SQ
Full code for now unless changes later
Updated daughter at bedside 05/20
Updated daughter on phone 05/21
Total time spent to see the patient on the floor, examine the patient, review data and lab results, discuss treatment plan with patient, nursing staff around 42 minutes.
Physical Exam
General: Appears lethargic, no acute distress
HEENT: Normocephalic, Atraumatic, EOMI, MMM
Respiratory: Clear to Auscultation bilaterally
Cardiac: Normal S1/S2, Regular Rate and Rhythm, systolic murmur
GI: Soft, Nontender, Nondistended, Normal Bowel Sounds
Extremities: No Clubbing, Cyanosis
Trace lower extremity edema
Psych: Calm, Cooperative
Anticipated Discharge: 24 - 48 hours
Subjective/Interval History
-
Date of Service: May 21, 2024
Patient more awake, alert, responsive today. No fever, no vomiting.
Objective Data
-
Vital Signs:
Vital Signs
Temp Pulse Resp BP Pulse Ox
97.5 F 82 18 149/76 98
05/21/24 08:08 05/21/24 08:08 05/21/24 08:08 05/21/24 08:08 05/21/24 08:08
I&O
05/20/24 05/21/24 05/22/24
06:59 06:59 06:59
Intake Total 300 / 300 600 / 600
Output Total 2160 / 2160 2370 / 2370
Balance -1860 / -1860 -1770 / -1770
[2024-05-21 10:07] LABS: % Basophils 0.4 % (0-2); % Eosinophils 1.9 % (0-6); % Immature Granulocytes 0.4 % (0-0.5); % Lymphocytes 17.8 % (20.5-51.1); % Monocytes 10.2 % (1.7-9.3); % Neutrophils 69.3 % (42.2-75.2); Absolute Eosinophils 0.1 10^3/uL (0-0.7); Absolute Lymphocytes 1.3 10^3/uL (1.2-3.4); Absolute Monocytes 0.8 10^3/uL (0.1-0.6); Absolute Neutrophils 5.2 10^3/uL (1.4-6.5); Hemoglobin 12.9 g/dL (13.0-18.0); Mean Corp Hgb Conc. 34.9 g/dL (33.0-37.0); Mean Corpuscular Hgb 35.3 pg (27.0-31.0); Mean Corpuscular Volume 101.4 fL (80.0-94.0); Mean Platelet Volume 9.3 fL (7.4-10.4); Nucleated Red Blood Cells % 0 % (-); Platelet Count 169 10^3/uL (130-400); Red Blood Cell Count 3.65 10^6/uL (4.70-6.10); Red Cell Dist. Width 12.9 % (11.5-14.5); White Blood Cell Count 7.5 10^3/uL (4.8-10.8)
[2024-05-21 10:22] LABS: ALT (SGPT) < 10 U/L (0-50); AST (SGOT) 26 U/L (17-59); Albumin 3.3 g/dl (3.5-5.0); Alkaline Phosphatase 104 U/L (38-126); Blood Urea Nitrogen 20 mg/dl (9-20); Calcium 8.7 mg/dl (8.4-10.2); Carbon Dioxide 27 mmol/L (22-30); Chloride 98 mmol/L (98-107); Estimated Creatinine Clearance 81 ml/min; Glucose 99 mg/dl (70-99); Sodium 136 mmol/L (135-145); Total Bilirubin 0.7 mg/dl (0.2-1.3); Total Protein 6.1 g/dl (6.3-8.2); eGFR > 60.00
[2024-05-21 10:27] LABS: Erythrocyte Sed Rate 40 mm/hour (0-20)
--- NOTE | 2024-05-21 14:36 | CM ---
Chart reviewed and plan is skilled placement, referrals sent to [facility], [facility] and [facility], Per Benedict in admissions at [facility] she has no beds available this week, patient has been accepted at [facility], and [facility] are
following with patient.
Plan; Skilled placement, may need terminal makeup operator facility, patient's functional ability has drastically decreased.
[2024-05-21 15:16] VITALS: BP 130/68
[2024-05-21] MEDS: LOVENOX 40 MG SC (17:01)
[2024-05-21] MEDS: VITAMIN B-12 1000 MCG PO (17:01)
[2024-05-21] MEDS: SINEMET CR 25-100 (EXTENDED RELEASE) 1 TABLET PO (22:07)
[2024-05-21 23:30] VITALS: BP 127/64
[2024-05-22] MEDS: ZOVIRAX 800 MG PO ×2 (07:43→20:58)
[2024-05-22] MEDS: EXELON PATCH 4.6 MG TRANSDERM (07:43)
[2024-05-22] MEDS: VITAMIN B-12 1000 MCG PO (07:43)
[2024-05-22] MEDS: SINEMET 25-100 1 TABLET PO ×3 (07:43→20:58)
[2024-05-22] MEDS: NAMENDA 10 MG PO ×2 (07:43→20:58)
[2024-05-22] MEDS: LIPITOR 20 MG PO (07:43)
[2024-05-22 08:23] VITALS: BP 172/86
--- NOTE | 2024-05-22 08:44 | W.PN.HOSP.TC ---
Today's Communication/Plan
-
See bold
Assessment / Plan
Assessment / Plan
HPI: 84-year-old male from home with PMH dementia, Parkinson's, chronic indwelling Harrison managed by Dr. Shah, HTN, HLD, stroke, MDS s/p stem cell transplant; p/w generalized weakness which has been waxing and waning over the last month. He
apparently also had some cloudy urine from his Harrison and decreased mental status (more sluggish and sleepy with less appetite).
His urine was tested twice by his primary care office and both were inconclusive or mixed angelo. Family started the pt with a 7-day course of Cipro on 04/28 and patient appeared to have gotten better. When they stopped the Cipro, he seemed to rebound
and declined again.
On 05/09, his urine culture grew multidrug-resistant E. coli. It was sensitive to nitrofurantoin so he was started on that and has taken several doses.
He seemed to have gotten better but declined again.
On DOA, he was unable to get out of bed, and his could not get him dressed. She feels that she could not take take of patient at home.
A/P:
# Generalized weakness, may be due to recurrent complicated UTI vs progression of Parkinson's and dementia
# UTI is related to chronic Harrison
Of note, patient was recently treated with Cipro on 04/28 for 7 days, then nitrofurantoin started on 05/09
Chronic harrison was changed in ED on admission
Urine culture negative, appreciate ID input, recommend discontinuing Merrem, monitor off antibiotics
CT head from admission showed no acute intracranial abnormality
Resume Hiprex
#Toxic metabolic encephalopathy
B12/TSH normal
Appreciate ID input, suspect secondary to side effects from merrem which was discontinued 05/20
Mentation much improved off Merrem, monitor off Merrem, no need for LP
# Mild BL LE edema
s/p IV Lasix 20 mg x1
Recent echo from 02/2024: EF 55 and 60% with mild concentric LVH and stage II diastolic dysfunction. Mild mitral regurgitation.
Compression stockings
# Dementia
# Parkinson's disease
# History of stroke
# Ambulatory dysfunction
Cont STONE GRADER meds
PT rec SNF
SPL rec continue pur�ed diet, thin liquids, meds crushed in pur�e
#Valvular disease
05/19/24 echo w/ mod-sev , mod AR
Follow-up with usual community support specialist Dr. Bucio outpatient
# Chronic indwelling Harrison
# h/o BPH
Chronic harrison was changed in ED on admission
# HLD
statin
# Essential HTN
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
Cont STONE GRADER chronic Acyclovir
DVT ppx: Lovenox SQ
Full code for now unless changes later
Updated daughter at bedside 05/20
Updated daughter on phone 05/21
Updated daughter at bedside 05/22
Total time spent to see the patient on the floor, examine the patient, review data and lab results, discuss treatment plan with patient, nursing staff around 39 minutes.
Physical Exam
General: Appears lethargic, no acute distress
HEENT: Normocephalic, Atraumatic, EOMI, MMM
Respiratory: Clear to Auscultation bilaterally
Cardiac: Normal S1/S2, Regular Rate and Rhythm, systolic murmur
GI: Soft, Nontender, Nondistended, Normal Bowel Sounds
Extremities: No Clubbing, Cyanosis
Trace lower extremity edema
Psych: Calm, Cooperative
Neuro: More awake/alert
Anticipated Discharge: 24 - 48 hours
Subjective/Interval History
-
Date of Service: May 22, 2024
Patient is more alert and awake today. He is answering questions. No fever, no vomiting.
Objective Data
-
Vital Signs:
Vital Signs
Temp Pulse Resp BP Pulse Ox
97.6 F 93 20 172/86 95
05/22/24 08:23 05/22/24 08:23 05/22/24 08:23 05/22/24 08:23 05/22/24 08:23
I&O
05/21/24 05/22/24 05/23/24
06:59 06:59 06:59
Intake Total 600 / 600 360 / 360
Output Total 2370 / 2370 2150 / 2150
Balance -1770 / -1770 -1790 / -1790
[2024-05-22 09:12] VITALS: BP 145/78
[2024-05-22 09:45] VITALS: BP 145/78; PULSE 99
[2024-05-22] MEDS: HIPREX 1 GRAM PO ×2 (11:22→20:58)
--- NOTE | 2024-05-22 14:28 | W.PN.ID1 ---
Date of Service
Date of Service: May 22, 2024
Today's Communication
- continued improvement, no need for further workup or treatment from my perspective
- would consider rehab
Assessment / Plan
AMS/encephalopathy - resolved
Parkinons
Dementia
- completed course of treatment for UTI
- continued improvement, no need for further workup or treatment from my perspective
- would not consider patient to have allergy to macrobid or meropenem
- would consider rehab
Chief Complaint
-: Other (encephalopathy)
Subjective / Review of Systems
afebrile
bp stable
continued improvement in mental status
discussed with adult daughter
leafing through [employer], reads the cover title to me
Vital Signs / Physical Exam
Vital Signs
Vital Signs
Temp Pulse Resp BP Pulse Ox
97.6 F 99 20 145/78 95
05/22/24 08:23 05/22/24 09:12 05/22/24 08:23 05/22/24 09:12 05/22/24 08:23
Physical Exam
Constitutional: No Acute Distress and Chronically Ill
Cardiovascular: Regular Rate and S1/S2; Negative Murmur or Rub
Pulmonary: Clear and Symmetric; Negative Wheezes or Rales
Gastrointestinal: Soft, Non Tender, Non Distended and Normal Bowel Sounds
Skin: Warm and Dry; Negative Rash or Jaundice
Objective Data
Lab Data
Lab Results
05/21/24 09:35
05/21/24 09:35
ESR 40 mm/hour (0-20) H 05/21/24 09:35
Estimated Creat Clear 81 ml/min 05/21/24 09:35
Total Bilirubin 0.7 mg/dl (0.2-1.3) 05/21/24 09:35
AST 26 U/L (17-59) 05/21/24 09:35
ALT < 10 U/L (0-50) 05/21/24 09:35
Alkaline Phosphatase 104 U/L (38-126) 05/21/24 09:35
C-Reactive Protein 35.70 mg/L (0.0-10.00) H 05/21/24 09:35
Most recent labs reviewed.
Micro Results:
05/17/24 10:59 Urine Culture - Final
Urine NO GROWTH
Care Review
Plan reviewed with: Physician (Dr Pickens - clinical improvement)
[2024-05-22 15:50] VITALS: BP 132/67
[2024-05-22] MEDS: LOVENOX 40 MG SC (17:03)
[2024-05-22] MEDS: SINEMET CR 25-100 (EXTENDED RELEASE) 1 TABLET PO (23:03)
[2024-05-22 23:36] VITALS: BP 117/71
[2024-05-23 07:00] VITALS: BP 131/67
--- NOTE | 2024-05-23 09:03 | W.PN.HOSP.TC ---
Today's Communication/Plan
-
Discharge to short-term rehab on Sunday
Assessment / Plan
Assessment / Plan
HPI: 84-year-old male from home with PMH dementia, Parkinson's, chronic indwelling Harrison managed by Dr. Shah, HTN, HLD, stroke, MDS s/p stem cell transplant; p/w generalized weakness which has been waxing and waning over the last month. He
apparently also had some cloudy urine from his Harrison and decreased mental status (more sluggish and sleepy with less appetite).
His urine was tested twice by his primary care office and both were inconclusive or mixed angelo. Family started the pt with a 7-day course of Cipro on 04/28 and patient appeared to have gotten better. When they stopped the Cipro, he seemed to rebound
and declined again.
On 05/09, his urine culture grew multidrug-resistant E. coli. It was sensitive to nitrofurantoin so he was started on that and has taken several doses.
He seemed to have gotten better but declined again.
On DOA, he was unable to get out of bed, and his could not get him dressed. She feels that she could not take take of patient at home.
A/P:
# Generalized weakness, may be due to recurrent complicated UTI vs progression of Parkinson's and dementia
# Catheter associated UTI, present upon admission, now resolved
# UTI is related to chronic Harrison
Of note, patient was recently treated with Cipro on 04/28 for 7 days, then nitrofurantoin started on 05/09-05/17, then merrem 05/17-
Chronic harrison was changed in ED on admission
Urine culture negative, appreciate ID input, patient has received a full course of antibiotics, monitor off antibiotics
CT head from admission showed no acute intracranial abnormality
Resumed Hiprex
Medically stable for discharge to short-term rehab Sunday
#Toxic metabolic encephalopathy, secondary to Merrem
B12/TSH normal
Appreciate ID input, suspect secondary to side effects from merrem which was discontinued 05/20
Mentation much improved off Merrem, monitor off Merrem, no need for LP
# Mild BL LE edema
s/p IV Lasix 20 mg x1
Recent echo from 02/2024: EF 55 and 60% with mild concentric LVH and stage II diastolic dysfunction. Mild mitral regurgitation.
Compression stockings
# Dementia
# Parkinson's disease
# History of stroke
# Ambulatory dysfunction
Cont SENIOR ACCOUNT EXECUTIVE meds
PT rec SNF
SPL rec soft/bite-size diet
#Valvular disease
05/19/24 echo w/ mod-sev , mod AR
Follow-up with usual tattoo and body artist Dr. Bucio outpatient
# Chronic indwelling Harrison
# h/o BPH
Chronic harrison was changed in ED on admission
# HLD
statin
# Essential HTN
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
Cont SENIOR ACCOUNT EXECUTIVE chronic Acyclovir
DVT ppx: Lovenox SQ
Full code for now unless changes later
Updated daughter at bedside 05/20
Updated daughter on phone 05/21
Updated daughter at bedside 05/22
Total time spent to see the patient on the floor, examine the patient, review data and lab results, discuss treatment plan with patient, nursing staff around 37 minutes.
Physical Exam
General: Appears lethargic, no acute distress
HEENT: Normocephalic, Atraumatic, EOMI, MMM
Respiratory: Clear to Auscultation bilaterally
Cardiac: Normal S1/S2, Regular Rate and Rhythm, systolic murmur
GI: Soft, Nontender, Nondistended, Normal Bowel Sounds
Extremities: No Clubbing, Cyanosis
Trace lower extremity edema
Psych: Calm, Cooperative
Neuro: More awake/alert
Anticipated Discharge: 24 - 48 hours
Subjective/Interval History
-
Date of Service: May 23, 2024
Patient is more awake and alert today. No fever, no vomiting.
Objective Data
-
Vital Signs:
Vital Signs
Temp Pulse Resp BP Pulse Ox
98.2 F 83 14 117/71 96
05/22/24 23:36 05/22/24 23:36 05/22/24 23:36 05/22/24 23:36 05/22/24 23:36
I&O
05/22/24 05/23/24 05/24/24
06:59 06:59 06:59
Intake Total 360 / 360 600 / 600
Output Total 2150 / 2150 1999 / 1999
Balance -1790 / -1790 -1400 / -1400
[2024-05-23] MEDS: EXELON PATCH 4.6 MG TRANSDERM (09:06)
[2024-05-23] MEDS: HIPREX 1 GRAM PO ×2 (09:07→21:22)
[2024-05-23] MEDS: NAMENDA 10 MG PO ×2 (09:07→21:22)
[2024-05-23] MEDS: ZOVIRAX 800 MG PO ×2 (09:07→21:22)
[2024-05-23] MEDS: VITAMIN B-12 1000 MCG PO (09:08)
[2024-05-23] MEDS: SINEMET 25-100 1 TABLET PO ×3 (09:08→21:22)
[2024-05-23] MEDS: LIPITOR 20 MG PO (09:08)
[2024-05-23 10:48] VITALS: BP 146/76; PULSE 96; O2SAT 97
[2024-05-23 10:52] VITALS: BP 146/76; PULSE 96; O2SAT 97
--- NOTE | 2024-05-23 14:34 | PN.CDI ---
CDI
- -
CDI:
Physician Documentation Request
Admit Date: 05/17/24 16:21
Dear Doctor Do,
Clinical Indicators:
Patient admitted with generalized weakness
05/22 ID PN, '05/09 urine culture 100K ESBL E coli, 05/17 ua and urine culture on arrival no pyuria and culture negative'
05/22 PN 'UTI is related to chronic Rick...Urine culture negative, appreciate ID input, recommend discontinuing Merrem, monitor off antibiotics'
Please clarify the following:
UTI was present on admission and is now resolved.
UTI was ruled out
UTI is still a likely, suspected, probable diagnosis
Other, please specify
Use of terms such as suspected, likely, concern for, or probable (associated with a specific diagnosis that is being evaluated, monitored, or treated as if it exists) are acceptable and can be coded in the inpatient setting, when documented at the
time of discharge.
Thank you,
Ann Virgen RN BSN
CDI Specialist
available via tiger text
Please use your independent medical judgment in providing your response.
[2024-05-23 15:00] VITALS: BP 162/75
--- NOTE | 2024-05-23 16:02 | PTOTSP ---
SPEECH THERAPY SWALLOW FOLLOW UP NOTE:
Patient continues to exhibit clinical signs of oropharyngeal dysphagia, likely chronic related to dementia, Parkinson's disease, CVA and acutely exacerbated by UTI. Patient remains at risk for aspiration and related complications given confusion and
delayed oral preparation and swallow initiation. CXR currently clear of new lung opacity. WBC WNL. Respiratory status stable (breathing comfortably on room air). Mental status appears improved compared to initial evaluation. Recommend diet upgrade
to IDDSI Level 6 Soft and Bite size diet, thin liquids. Medications crushed in puree. Aspiration precautions includin:1 assist/100% supervision; Small single sips/bites; Slow rate; Upright positioning; NO STRAWS; Checking for pocketing; Only
feed when awake/alert; Alternate textures; Ensure patient swallows prior to next bite; Ensure oral cavity clear at end of meal; Reduce distractions while eating; Reflux precautions. Monitor for signs of aspiration. Oral care 3x/day. ST to follow,
assess diet tolerance and modify as appropriate, determine indication for repeat VSE if indicated, and provide continued patient/family education regarding aspiration risks and precautions.
RECOMMEND:
1) IDDSI Level 6 Soft and Bite Size diet, thin liquids
2) Medications crushed in puree
3) Aspiration precautions includin:1 assist/100% supervision; Small single sips/bites; Slow rate; Upright positioning; NO STRAWS; Checking for pocketing; Only feed when awake/alert; Alternate textures; Ensure patient swallows prior to next bite;
Ensure oral cavity clear at end of meal; Reduce distractions while eating; Reflux precautions. Monitor for signs of aspiration
4) Oral care 3x/day
5) ST to follow
--- NOTE | 2024-05-23 16:11 | CM ---
patient has a bed at [facility] on sunday.she is stable for dc per attending.
patient will need a covid test sunday before leaving.facility would like transport scheduled between 4 and 5 pm.
phone number to call report is [phone] and fax number is [phone]
[2024-05-23] MEDS: LOVENOX 40 MG SC (17:24)
[2024-05-23] MEDS: SINEMET CR 25-100 (EXTENDED RELEASE) 1 TABLET PO (22:49)
[2024-05-23 23:41] VITALS: BP 128/70
--- NOTE | 2024-05-24 07:34 | W.PN.HOSP.TC ---
Today's Communication/Plan
-
Discharged to short-term rehab tomorrow
Assessment / Plan
Assessment / Plan
HPI: 84-year-old male from home with PMH dementia, Parkinson's, chronic indwelling Harrison managed by Dr. Shah, HTN, HLD, stroke, MDS s/p stem cell transplant; p/w generalized weakness which has been waxing and waning over the last month. He
apparently also had some cloudy urine from his Harrison and decreased mental status (more sluggish and sleepy with less appetite).
His urine was tested twice by his primary care office and both were inconclusive or mixed angelo. Family started the pt with a 7-day course of Cipro on 04/28 and patient appeared to have gotten better. When they stopped the Cipro, he seemed to rebound
and declined again.
On 05/09, his urine culture grew multidrug-resistant E. coli. It was sensitive to nitrofurantoin so he was started on that and has taken several doses.
He seemed to have gotten better but declined again.
On DOA, he was unable to get out of bed, and his could not get him dressed. She feels that she could not take take of patient at home.
A/P:
# Generalized weakness, may be due to recurrent complicated UTI vs progression of Parkinson's and dementia
# Catheter associated UTI, present upon admission, now resolved
# UTI is related to chronic Harrison
Of note, patient was recently treated with Cipro on 04/28 for 7 days, then nitrofurantoin started on 05/09-05/17, then merrem 05/17-
Chronic harrison was changed in ED on admission
Urine culture negative, appreciate ID input, patient has received a full course of antibiotics, monitor off antibiotics
CT head from admission showed no acute intracranial abnormality
Resumed Hiprex
Medically stable for discharge to short-term rehab Sunday
#Toxic metabolic encephalopathy, secondary to Merrem
B12/TSH normal
Appreciate ID input, suspect secondary to side effects from merrem which was discontinued 05/20
Mentation much improved off Merrem, monitor off Merrem, no need for LP
# Mild BL LE edema
s/p IV Lasix 20 mg x1
Recent echo from 02/2024: EF 55 and 60% with mild concentric LVH and stage II diastolic dysfunction. Mild mitral regurgitation.
Lower extremity Dopplers negative for DVT, continue compression stockings
# Dementia
# Parkinson's disease
# History of stroke
# Ambulatory dysfunction
Cont HEMATOLOGY NURSE meds
PT rec SNF
SPL rec soft/bite-size diet
#Valvular disease
05/19/24 echo w/ mod-sev , mod AR
Follow-up with usual lens coater Dr. Bucio outpatient
# Chronic indwelling Harrison
# h/o BPH
Chronic harrison was changed in ED on admission
# HLD
statin
# Essential HTN
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
Cont HEMATOLOGY NURSE chronic Acyclovir
DVT ppx: Lovenox SQ
Full code for now unless changes later
Updated daughter and at bedside 05/19
Updated daughter at bedside 05/20
Updated daughter on phone 05/21
Updated daughter at bedside 05/22
Updated daughter on phone 05/24
Total time spent to see the patient on the floor, examine the patient, review data and lab results, discuss treatment plan with patient, nursing staff around 39 minutes.
Physical Exam
General: Appears lethargic, no acute distress
HEENT: Normocephalic, Atraumatic, EOMI, MMM
Respiratory: Clear to Auscultation bilaterally
Cardiac: Normal S1/S2, Regular Rate and Rhythm, systolic murmur
GI: Soft, Nontender, Nondistended, Normal Bowel Sounds
Extremities: No Clubbing, Cyanosis
Trace lower extremity edema
Psych: Calm, Cooperative
Neuro: More awake/alert
Anticipated Discharge: Within 24 hours
Subjective/Interval History
-
Date of Service: May 24, 2024
Patient continues to be awake and alert. His weakness is improving. No fever, no vomiting.
Objective Data
-
Vital Signs:
Vital Signs
Temp Pulse Resp BP Pulse Ox
98.1 F 83 18 128/70 95
05/23/24 23:41 05/23/24 23:41 05/23/24 23:41 05/23/24 23:41 05/23/24 23:41
I&O
05/23/24 05/24/24 05/25/24
06:59 06:59 06:59
Intake Total 600 / 600 660 / 660
Output Total 2000 / 2000 1200 / 1200
Balance -1400 / -1400 -540 / -540
[2024-05-24 07:37] VITALS: BP 132/70
[2024-05-24 08:37] VITALS: BP 132/70
[2024-05-24] MEDS: EXELON PATCH 4.6 MG TRANSDERM (10:20)
[2024-05-24] MEDS: ZOVIRAX 800 MG PO ×2 (10:23→20:32)
[2024-05-24] MEDS: LIPITOR 20 MG PO (10:23)
[2024-05-24] MEDS: HIPREX 1 GRAM PO ×2 (10:23→20:32)
[2024-05-24] MEDS: SINEMET 25-100 1 TABLET PO ×3 (10:23→20:32)
[2024-05-24] MEDS: NAMENDA 10 MG PO ×2 (10:23→20:32)
[2024-05-24] MEDS: VITAMIN B-12 1000 MCG PO (10:24)
[2024-05-24 15:12] VITALS: BP 134/72
[2024-05-24] MEDS: LOVENOX 40 MG SC (17:47)
[2024-05-24] MEDS: SINEMET CR 25-100 (EXTENDED RELEASE) 1 TABLET PO (21:59)
[2024-05-24 23:10] VITALS: BP 136/65
[2024-05-25 07:52] VITALS: BP 144/58
--- NOTE | 2024-05-25 08:41 | W.PN.HOSP.TC ---
Today's Communication/Plan
-
Discharge to short-term rehab when bed available
Assessment / Plan
Assessment / Plan
HPI: 84-year-old male from home with PMH dementia, Parkinson's, chronic indwelling Harrison managed by Dr. Shah, HTN, HLD, stroke, MDS s/p stem cell transplant; p/w generalized weakness which has been waxing and waning over the last month. He
apparently also had some cloudy urine from his Harrison and decreased mental status (more sluggish and sleepy with less appetite).
His urine was tested twice by his primary care office and both were inconclusive or mixed angelo. Family started the pt with a 7-day course of Cipro on 04/28 and patient appeared to have gotten better. When they stopped the Cipro, he seemed to rebound
and declined again.
On 05/09, his urine culture grew multidrug-resistant E. coli. It was sensitive to nitrofurantoin so he was started on that and has taken several doses.
He seemed to have gotten better but declined again.
On DOA, he was unable to get out of bed, and his could not get him dressed. She feels that she could not take take of patient at home.
A/P:
# Generalized weakness, may be due to recurrent complicated UTI vs progression of Parkinson's and dementia
# Catheter associated UTI, present upon admission, now resolved
# UTI is related to chronic Harrison
Of note, patient was recently treated with Cipro on 04/28 for 7 days, then nitrofurantoin started on 05/09-05/17, then merrem 05/17-
Chronic harrison was changed in ED on admission
Urine culture negative, appreciate ID input, patient has received a full course of antibiotics, monitor off antibiotics
CT head from admission showed no acute intracranial abnormality
Resumed Hiprex
Medically stable for discharge to short-term rehab when bed available
#Toxic metabolic encephalopathy, secondary to Merrem
B12/TSH normal
Appreciate ID input, suspect secondary to side effects from merrem which was discontinued 05/20
Confusion resolved off Merrem, no need for LP
# Mild BL LE edema
s/p IV Lasix 20 mg x1
Recent echo from 02/2024: EF 55 and 60% with mild concentric LVH and stage II diastolic dysfunction. Mild mitral regurgitation.
Lower extremity Dopplers negative for DVT, continue compression stockings
# Dementia
# Parkinson's disease
# History of stroke
# Ambulatory dysfunction
Cont [employer] meds
PT rec SNF
SPL rec soft/bite-size diet
#Valvular disease
05/19/24 echo w/ mod-sev , mod AR
Follow-up with usual geriatric psychiatrist Dr. Bucio outpatient
# Chronic indwelling Harrison
# h/o BPH
Chronic harrison was changed in ED on admission
# HLD
statin
# Essential HTN
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
Cont [employer] chronic Acyclovir
DVT ppx: Lovenox SQ
Full code for now unless changes later
Updated daughter and at bedside 05/19
Updated daughter at bedside 05/20
Updated daughter on phone 05/21
Updated daughter at bedside 05/22
Updated daughter on phone 05/24
Total time spent to see the patient on the floor, examine the patient, review data and lab results, discuss treatment plan with patient, nursing staff around 37 minutes.
Physical Exam
General: Appears lethargic, no acute distress
HEENT: Normocephalic, Atraumatic, EOMI, MMM
Respiratory: Clear to Auscultation bilaterally
Cardiac: Normal S1/S2, Regular Rate and Rhythm, systolic murmur
GI: Soft, Nontender, Nondistended, Normal Bowel Sounds
Extremities: No Clubbing, Cyanosis
Trace lower extremity edema
Psych: Calm, Cooperative
Neuro: More awake/alert
Anticipated Discharge: Within 24 hours
Subjective/Interval History
-
Date of Service: May 25, 2024
Patient continues to be alert and awake. No fever, no vomiting.
Objective Data
-
Vital Signs:
Vital Signs
Temp Pulse Resp BP Pulse Ox
98.2 F 84 14 136/65 96
05/24/24 23:10 05/24/24 23:10 05/24/24 23:10 05/24/24 23:10 05/24/24 23:10
I&O
05/24/24 05/25/24 05/26/24
06:59 06:59 06:59
Intake Total 660 / 660 1260 / 1260
Output Total 1200 / 1200 2925 / 2925
Balance -540 / -540 -1665 / -1665
[2024-05-25] MEDS: HIPREX 1 GRAM PO ×2 (08:56→20:41)
[2024-05-25] MEDS: VITAMIN B-12 1000 MCG PO (08:56)
[2024-05-25] MEDS: NAMENDA 10 MG PO ×2 (08:56→20:41)
[2024-05-25] MEDS: SINEMET 25-100 1 TABLET PO ×3 (08:56→20:40)
[2024-05-25] MEDS: ZOVIRAX 800 MG PO ×2 (08:56→20:41)
[2024-05-25] MEDS: EXELON PATCH 4.6 MG TRANSDERM (08:57)
[2024-05-25] MEDS: LIPITOR 20 MG PO (09:10)
--- NOTE | 2024-05-25 11:21 | CM ---
CM received call from dtr/[facility]
Refusing SNF bed [facility] due to distance
Only wants [place] based SNFs- [facility] and [facility]
Advsied their admissions closed on weekend
Dtr adamant on holding pt for further SNF consideration
Per [facility]- referrals to [facility] and [facility] pending
Update to Dr Pickens
Discharge Disposition- SNF
[2024-05-25 16:00] VITALS: BP 142/78
[2024-05-25] MEDS: LOVENOX 40 MG SC (17:11)
[2024-05-25] MEDS: SINEMET CR 25-100 (EXTENDED RELEASE) 1 TABLET PO (22:31)
[2024-05-25 22:45] VITALS: BP 142/66
[2024-05-26] MEDS: VITAMIN B-12 1000 MCG PO (07:41)
[2024-05-26] MEDS: EXELON PATCH 4.6 MG TRANSDERM (07:41)
[2024-05-26] MEDS: LIPITOR 20 MG PO (07:41)
[2024-05-26] MEDS: SINEMET 25-100 1 TABLET PO ×2 (07:41→12:17)
[2024-05-26] MEDS: NAMENDA 10 MG PO (07:42)
[2024-05-26] MEDS: HIPREX 1 GRAM PO (07:42)
[2024-05-26] MEDS: ZOVIRAX 800 MG PO (07:42)
[2024-05-26 08:00] VITALS: BP 158/81
--- NOTE | 2024-05-26 08:08 | W.PN.HOSP.TC ---
Addendum entered and electronically signed by Janel Whitfield MD 05/26/24 13:45:
total DC time 38 min
Addendum entered and electronically signed by Janel Whitfield MD 05/26/24 11:56:
updated on the phone
Original Note:
Today's Communication/Plan
-
for SNF
Assessment / Plan
Assessment / Plan
HPI: 84-year-old male from home with PMH dementia, Parkinson's, chronic indwelling Harrison managed by Dr. Shah, HTN, HLD, stroke, MDS s/p stem cell transplant; p/w generalized weakness which has been waxing and waning over the last month. He
apparently also had some cloudy urine from his Harrison and decreased mental status (more sluggish and sleepy with less appetite).
His urine was tested twice by his primary care office and both were inconclusive or mixed angelo. Family started the pt with a 7-day course of Cipro on 04/28 and patient appeared to have gotten better. When they stopped the Cipro, he seemed to rebound
and declined again.
On 05/09, his urine culture grew multidrug-resistant E. coli. It was sensitive to nitrofurantoin so he was started on that and has taken several doses.
He seemed to have gotten better but declined again.
On DOA, he was unable to get out of bed, and his could not get him dressed. She feels that she could not take take of patient at home.
A/P:
# Generalized weakness, due to recurrent complicated UTI vs progression of Parkinson's and dementia
# Catheter associated UTI, present upon admission, now resolved
# UTI is related to chronic Harrison
Urine culture this admission positive for multi-antibiotic resistant E coli
Of note, patient was recently treated with Cipro on 04/28 for 7 days, then nitrofurantoin started on 05/09-05/17, then merrem 05/17-
Chronic harrison was changed in ED on admission
CT head from admission showed no acute intracranial abnormality
Resumed Hiprex
Medically stable for discharge to short-term rehab when bed available
# Toxic metabolic encephalopathy, secondary to Merrem
B12/TSH normal
Appreciate ID input, suspect secondary to side effects from Merrem which was discontinued 05/20
Confusion resolved off Merrem, no need for LP
# Mild BL LE edema
s/p IV Lasix 20 mg x1
Recent echo from 02/2024: EF 55 and 60% with mild concentric LVH and stage II diastolic dysfunction. Mild mitral regurgitation.
Lower extremity Dopplers negative for DVT, continue compression stockings
# Dementia
# Parkinson's disease
# History of stroke
# Ambulatory dysfunction
Cont [employer] meds
PT rec SNF
SPL rec soft/bite-size diet
# Valvular disease
05/19/24 echo w/ mod-sev , mod AR
Follow-up with usual microbiology coordinator Dr. Bucio outpatient
# Chronic indwelling Harrison
# h/o BPH
Chronic harrison was changed in ED on admission
# HLD
statin
# Essential HTN
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
Cont [employer] chronic Acyclovir
DVT ppx: Lovenox SQ
Full code for now unless changes later
Anticipated Discharge: Within 24 hours
Subjective/Interval History
-
Date of Service: May 26, 2024
Objective Data
-
Vital Signs:
Vital Signs
Temp Pulse Resp BP Pulse Ox
36.3 C 73 18 142/66 96
05/25/24 22:45 05/25/24 22:45 05/25/24 22:45 05/25/24 22:45 05/25/24 22:45
I&O
05/25/24 05/26/24 05/27/24
06:59 06:59 06:59
Intake Total 1260 / 1260 480 / 480
Output Total 2925 / 2925 1100 / 1100
Balance -1665 / -1665 -620 / -620
Review of Systems
-
All other systems: Reviewed and negative
Physical Exam
-
General: Well Developed, Well Nourished, No Apparent Distress, Comfortable, Conversant and Appears Chronically Ill; Negative Respiratory Distress
HEENT: Normocephalic, Atraumatic, Nose Appears Normal and Ears Appear Normal; Negative Oxygen
Respiratory: Clear to Auscultation and Non Labored Respirations; Negative Accessory Resp Muscle Use
Cardiac: Regular Rhythm and S1/S2
GI: Soft, Nontender, Nondistended and Normal Bowel Sounds
Skin: Warm and Dry
Neuro: Awake and Alert
Psych: Calm
Data Reviewed
-
CT Scan: Report Reviewed by me
Labs: Labs Reviewed by me
--- NOTE | 2024-05-26 09:41 | CM ---
Addendum entered by Luz Boyce 05/26/24 12:40:
Bed is available at [facility] today, spouse and daughter are agreeable to [facility].
[facility]
Report [phone]

Original Note:
Chart reviewed and case management specialist reached out to patient's spouse primary contact for patient this am to confirm snf choice, Patient's spouse is agreeable to [facility] and [facility], message left with [facility] they may not have any beds
and per admissions at [facility] they are also not sure if they have any beds.
Plan; Skilled placement.
[2024-05-26 12:55] VITALS: BP 158/81; PULSE 79
--- NOTE | 2024-05-26 13:23 | W.DCSUMMARY ---
Discharge Summary
Discharge Data
Date of Admission: 05/17/24
Date of Discharge: 05/26/24
-
Pending Results: No
Hospital Course
Principal Diagnosis:
Generalized weakness, due to recurrent complicated urinary tract infection (UTI)/catheter associated UTI with ESBL E coli
Confusion, likely due to medication side effect from Merrem
Chronic Diagnoses:�
Dementia
Parkinson's disease
History of stroke
Ambulatory dysfunction
Valvular heart disease with moderate to severe aortic stenosis, moderate aortic regurgitation
Chronic indwelling Harrison
History of benign prostate hypertrophy
Hyperlipidemia
Essential hypertension
History of myelodysplastic syndrome status post stem cell transplant, on chronic acyclovir
Consultations:�
Infectious disease
Procedures:�
None
Clinical course:�
This is a 84-year-old male with past medical history as stated above, who presented with generalized weakness.
Problem 1:
Generalized weakness, due to recurrent complicated urinary tract infection (UTI)/catheter associated UTI.
His chronic harrison was changed in the ED on admission.
His urine culture grew ESBL E coli.
He was treated with Merrem during his hospital stay and completed course.
He was discharged to short-term rehab per PT OT recommendation.
Problem 2:
Toxic metabolic encephalopathy, secondary to Merrem.
His B12 and TSH levels were normal.
His confusion resolved off Merrem, hence there is no need for further workup such as LP.
Of note, his CT head on admission was unrevealing
As for the rest of his medical problems, they were stable during his hospital stay.
Discharge Plan
-
Patient Disposition: Senior Living/SNF
Discharge Diagnosis/Procedures: Generalized weakness due to recurrent complicated UTI/catheter associated UTI (completed treatment with Merrem);
Toxic metabolic encephalopathy secondary to Merrem;
low B12 level;
Dementia;
Parkinson's disease;
History of stroke
Condition: Fair
Diet: As tolerated
Additional Diets: soft and bite size
Referrals:
Jeremi Lund MD [Family Provider] - in less than 1 week
Prescriptions:
New
cyanocobalamin (vitamin B-12) 1,000 mcg Tablet
1,000 mcg PO DAILY Qty: 30 0RF
Continued
atorvastatin 20 MG tablet
20 mg PO DAILY
rivastigmine 4.6 MG patch 24 hour
1 patch transdermal DAILY
multivitamin with folic acid [Tab-A-Piedad] 1 TABLET tablet
1 tab PO DAILY
memantine 10 MG tablet
10 mg PO BID
acyclovir 800 MG tablet
800 mg PO BID
carbidopa-levodopa 25-100 mg tablet extended release
1 tab PO HS
methenamine hippurate 1 gram tablet
1 g PO BID
Patient Comments:
05/17/2024: On hold while pt is taking Nitrofurantoin per spouse
ascorbic acid (vitamin C) [Vitamin C] 500 mg Tablet
500 mg PO DAILY
carbidopa-levodopa 25-100 mg tablet
1 tab PO BID@0800,1300,2000
ipratropium bromide 21 mcg (0.03 %) spray,non-aerosol
2 spray INTRANASAL BID
Systane (PF) 0.4-0.3 % Dropperette
1 drp BOTH EYES 6XD PRN (Reason: dry eyes)
Discontinued
nitrofurantoin monohyd/m-cryst 100 mg capsule
100 mg PO Q12H
Discharge Orders:
Discharge Patient (As Directed); Ordered 05/26/24
Ordered By: Janel Whitfield
Discharge Date and Time
Print Language: MACEDONIAN
[2024-05-26 14:29] VITALS: BP 138/69
[2024-05-26] MEDS: LOVENOX SC (15:54)
== END 2024-05-26 17:28 | DRG 698 ==
LOC: 4 WEST ACU 16:21
PROVIDERS: Family Medicine; Physician Assistant; ADMITTING PHYSICIAN Internal Medicine; CONSULT PHYSICIAN Student in an Organized Health Care Education/Training Program; EMERGENCY PHYSICIAN Emergency Medicine; FAMILY PHYSICIAN Internal Medicine Geriatric Medicine
DX: T83.511A Infection and inflammatory reaction due to indwelling urethral catheter, initial encounter (principal); G92.8 Other toxic encephalopathy; D89.811 Chronic graft-versus-host disease; Z16.12 Extended spectrum beta lactamase (ESBL) resistance; Z16.24 Resistance to multiple antibiotics; Z94.84 Stem cells transplant status; G20.A1 Parkinson's disease without dyskinesia, without mention of fluctuations; F02.80 Dementia in other diseases classified elsewhere, unspecified severity, without behavioral disturbance, psychotic disturbance, mood disturbance, and anxiety; D46.9 Myelodysplastic syndrome, unspecified; I10 Essential (primary) hypertension; N39.0 Urinary tract infection, site not specified; Y84.6 Urinary catheterization as the cause of abnormal reaction of the patient, or of later complication, without mention of misadventure at the time of the procedure; B96.20 Unspecified Escherichia coli [E. coli] as the cause of diseases classified elsewhere; T36.1X5A Adverse effect of cephalosporins and other beta-lactam antibiotics, initial encounter; E78.5 Hyperlipidemia, unspecified; N40.1 Benign prostatic hyperplasia with lower urinary tract symptoms; R33.8 Other retention of urine; R60.0 Localized edema; R26.2 Difficulty in walking, not elsewhere classified; Z90.89 Acquired absence of other organs; Z86.73 Personal history of transient ischemic attack (TIA), and cerebral infarction without residual deficits; Z87.19 Personal history of other diseases of the digestive system; Z87.442 Personal history of urinary calculi; Z87.891 Personal history of nicotine dependence; Z87.81 Personal history of (healed) traumatic fracture; Z86.718 Personal history of other venous thrombosis and embolism
CPT/HCPCS: 93308; 70450; 71046; 80048; 80053; 81003; 81015; 82607; 83735; 83880; 84443; 85025; 85652; 86140; 87086; 87811; 92526; 92610; 93005; 93321; 93325; 93971; 97110; 97112; 97116; 97163; 97167; 97530; 97535; 99285

== ENCOUNTER → 2024-06-02 10:06 | Outpatient (REF) | payer MEDICARE, OTHER, SELFPAY ==
[2024-06-02 11:22] LABS: % Basophils 0.6 % (0-2); % Eosinophils 3.9 % (0-6); % Immature Granulocytes 0.2 % (0-0.5); % Lymphocytes 25.3 % (20.5-51.1); % Monocytes 9.6 % (1.7-9.3); % Neutrophils 60.4 % (42.2-75.2); Absolute Eosinophils 0.3 10^3/uL (0-0.7); Absolute Lymphocytes 1.6 10^3/uL (1.2-3.4); Absolute Monocytes 0.6 10^3/uL (0.1-0.6); Absolute Neutrophils 3.9 10^3/uL (1.4-6.5); Hematocrit 33.4 % (39.0-52.0); Hemoglobin 11.6 g/dL (13.0-18.0); Mean Corp Hgb Conc. 34.7 g/dL (33.0-37.0); Mean Corpuscular Hgb 35.3 pg (27.0-31.0); Mean Corpuscular Volume 101.5 fL (80.0-94.0); Mean Platelet Volume 9.1 fL (7.4-10.4); Nucleated Red Blood Cells % 0 % (-); Platelet Count 212 10^3/uL (130-400); Red Blood Cell Count 3.29 10^6/uL (4.70-6.10); Red Cell Dist. Width 13.1 % (11.5-14.5); White Blood Cell Count 6.5 10^3/uL (4.8-10.8)
[2024-06-02 11:31] LABS: Blood Urea Nitrogen 25 mg/dl (9-20); Calcium 8.4 mg/dl (8.4-10.2); Carbon Dioxide 26 mmol/L (22-30); Chloride 106 mmol/L (98-107); Glucose 82 mg/dl (70-99); Potassium 3.6 mmol/L (3.5-5.1); Sodium 140 mmol/L (135-145); eGFR > 60.00
== END ==
LOC: OLABP 10:06
PROVIDERS: ATTENDING PHYSICIAN Family Medicine
DX: R26.2 Difficulty in walking, not elsewhere classified (principal); I35.0 Nonrheumatic aortic (valve) stenosis; I35.1 Nonrheumatic aortic (valve) insufficiency; I10 Essential (primary) hypertension; E78.5 Hyperlipidemia, unspecified; N40.1 Benign prostatic hyperplasia with lower urinary tract symptoms; G20.A1 Parkinson's disease without dyskinesia, without mention of fluctuations; F03.90 Unspecified dementia, unspecified severity, without behavioral disturbance, psychotic disturbance, mood disturbance, and anxiety; Z94.84 Stem cells transplant status; D46.9 Myelodysplastic syndrome, unspecified; G92.8 Other toxic encephalopathy; T83.511D Infection and inflammatory reaction due to indwelling urethral catheter, subsequent encounter; M62.81 Muscle weakness (generalized)
CPT/HCPCS: 36415; 80048; 85025

== ENCOUNTER → 2024-06-03 20:54 | Outpatient (REF) | payer OTHER, SELFPAY ==
[2024-06-03 21:37] LABS: Urine Albumin Trace (Neg - Trace); Urine Bilirubin Negative (Negative); Urine Character Clear (Clear); Urine Color Yellow; Urine Glucose Negative (Negative); Urine Ketone Negative (Negative); Urine Leukocyte 2+ (Negative); Urine Nitrite Positive (Negative); Urine Occult Blood Negative (Negative); Urine Urobilinogen Negative (Neg - 1+)
[2024-06-03 21:55] LABS: Urine Bacteria Moderate (Negative); Urine Red Blood Cell 0-2 /HPF (0-2); Urine White Cell 60-70 /HPF (0-5)
== END ==
LOC: OLABP 20:54
PROVIDERS: ATTENDING PHYSICIAN Family Medicine
DX: N39.0 Urinary tract infection, site not specified (principal)
CPT/HCPCS: 81003; 81015; 87077; 87086; 87186

== ENCOUNTER → 2024-06-09 13:19 | Outpatient (REF) | payer OTHER, MEDICARE, SELFPAY ==
[2024-06-09 13:46] LABS: % Basophils 0.4 % (0-2); % Eosinophils 3.5 % (0-6); % Immature Granulocytes 0.4 % (0-0.5); % Lymphocytes 16.9 % (20.5-51.1); % Monocytes 8.2 % (1.7-9.3); % Neutrophils 70.6 % (42.2-75.2); Absolute Eosinophils 0.3 10^3/uL (0-0.7); Absolute Lymphocytes 1.6 10^3/uL (1.2-3.4); Absolute Monocytes 0.8 10^3/uL (0.1-0.6); Absolute Neutrophils 6.5 10^3/uL (1.4-6.5); Hematocrit 33.9 % (39.0-52.0); Hemoglobin 11.8 g/dL (13.0-18.0); Mean Corp Hgb Conc. 34.8 g/dL (33.0-37.0); Mean Corpuscular Hgb 35.2 pg (27.0-31.0); Mean Corpuscular Volume 101.2 fL (80.0-94.0); Mean Platelet Volume 9.2 fL (7.4-10.4); Nucleated Red Blood Cells % 0 % (-); Platelet Count 217 10^3/uL (130-400); Red Blood Cell Count 3.35 10^6/uL (4.70-6.10); Red Cell Dist. Width 12.7 % (11.5-14.5); White Blood Cell Count 9.2 10^3/uL (4.8-10.8)
== END ==
LOC: OLABP 13:19
PROVIDERS: ATTENDING PHYSICIAN Family Medicine
DX: R26.2 Difficulty in walking, not elsewhere classified (principal); I35.0 Nonrheumatic aortic (valve) stenosis; I35.1 Nonrheumatic aortic (valve) insufficiency; E78.5 Hyperlipidemia, unspecified; N40.1 Benign prostatic hyperplasia with lower urinary tract symptoms; G20.A1 Parkinson's disease without dyskinesia, without mention of fluctuations; F03.90 Unspecified dementia, unspecified severity, without behavioral disturbance, psychotic disturbance, mood disturbance, and anxiety; Z94.84 Stem cells transplant status; D46.9 Myelodysplastic syndrome, unspecified; G92.8 Other toxic encephalopathy; T83.511D Infection and inflammatory reaction due to indwelling urethral catheter, subsequent encounter; M62.81 Muscle weakness (generalized)
CPT/HCPCS: 85025

== ENCOUNTER 2024-06-10 19:11 | Inpatient (IN) | payer MEDICARE, OTHER, SELFPAY ==
[2024-06-10] VITALS (7 sets, daily range): BP systolic 139–161; BP diastolic 70–90; BMI 24.6; BMI 24.3; BMI 25.2
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
[2024-06-10 15:28] LABS: % Basophils 0.4 % (0-2); % Eosinophils 4.2 % (0-6); % Immature Granulocytes 0.5 % (0-0.5); % Lymphocytes 22.3 % (20.5-51.1); % Monocytes 7.4 % (1.7-9.3); % Neutrophils 65.2 % (42.2-75.2); Absolute Eosinophils 0.4 10^3/uL (0-0.7); Absolute Lymphocytes 1.9 10^3/uL (1.2-3.4); Absolute Monocytes 0.6 10^3/uL (0.1-0.6); Absolute Neutrophils 5.6 10^3/uL (1.4-6.5); Hematocrit 40.1 % (39.0-52.0); Hemoglobin 13.8 g/dL (13.0-18.0); Mean Corp Hgb Conc. 34.4 g/dL (33.0-37.0); Mean Corpuscular Volume 98.8 fL (80.0-94.0); Mean Platelet Volume 8.7 fL (7.4-10.4); Nucleated Red Blood Cells % 0 % (-); Platelet Count 232 10^3/uL (130-400); Red Blood Cell Count 4.06 10^6/uL (4.70-6.10); Red Cell Dist. Width 12.9 % (11.5-14.5); White Blood Cell Count 8.5 10^3/uL (4.8-10.8)
[2024-06-10 15:43] LABS: ALT (SGPT) 13 U/L (0-50); AST (SGOT) 19 U/L (17-59); Alkaline Phosphatase 92 U/L (38-126); Blood Urea Nitrogen 21 mg/dl (9-20); Calcium 9.1 mg/dl (8.4-10.2); Carbon Dioxide 27 mmol/L (22-30); Chloride 100 mmol/L (98-107); Estimated Creatinine Clearance 72 ml/min; Glucose 115 mg/dl (70-99); Potassium 4.3 mmol/L (3.5-5.1); Sodium 137 mmol/L (135-145); Total Bilirubin 0.8 mg/dl (0.2-1.3); Total Protein 6.9 g/dl (6.3-8.2); eGFR > 60.00
[2024-06-10 17:18] LABS: Urine Albumin Negative (Neg - Trace); Urine Bilirubin Negative (Negative); Urine Character Slightly Cloudy (Clear); Urine Color Yellow; Urine Glucose Negative (Negative); Urine Ketone Negative (Negative); Urine Leukocyte 2+ (Negative); Urine Nitrite Positive (Negative); Urine Occult Blood Negative (Negative); Urine Urobilinogen Negative (Neg - 1+)
[2024-06-10 17:27] LABS: Urine Bacteria Many (Negative); Urine Red Blood Cell 0-2 /HPF (0-2); Urine White Cell 16-20 /HPF (0-5)
[2024-06-10 17:34] LABS: COVID-19 Antigen Negative (Negative)
--- NOTE | 2024-06-10 18:13 | HPS.HSE ---
Family Physician
-
Family Physician: Jeremi Lund
Chief Complaint
-
lethargic
History of Present Illness
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 history obtained from .
patient was noted lethargic for past few days. he is sleeping more than usual. he was noted very weak. patient stated some non productive cough, and complained of chest pain with cough. denied GREEN, dizzy or syncopal episode. denied abdominal
pain,n,v,d. patient was started on Cipro at [facility].
patient was admitted her last month with UTI. he was then discharged to [facility]. stated left LE swelling, which improved with Lasix.
positive UA, treated with meropenem in ER. admitting for further management.
Medical History
Past Medical History
Past Medical History: Reports Other
Additional Past Medical History:
E coli
BPh
MDS
HTn
HLD
COPD
dementia
polycythemia
neurogenic bladder
parkinson disease
Past Surgical History: Reports Other
Additional Past Surgical History:
bone marrow transplant
hernia repair
cholecystectomy
Social History
Tobacco: Non-smoker
Alcohol: None
Drug: None
Personal:
Living: Assisted Living
Family History
Family History: Not pertinent
Allergies / Home Medications
Allergies reflects when Allergies were last updated in [facility].
Home Medications with original date entered in [facility]
Allergy/Medication List:
Allergies
Allergy/AdvReac Type Severity Reaction Status Date / Time
levofloxacin [From Levaquin] Allergy Mental Verified 09/12/21 12:29
confusion
- 'went
blank'
sulfamethoxazole Allergy Unknown Verified 05/19/24 16:12
[From Bactrim]
trimethoprim [From Bactrim] Allergy Unknown Verified 05/19/24 16:12
Home Medications
acyclovir 800 mg tablet 800 mg PO BID Infection 10/11/20
atorvastatin 20 mg tablet 20 mg PO DAILY High cholesterol 10/11/20
memantine 10 mg tablet 10 mg PO BID memory 10/11/20
multivitamin with folic acid 400 mcg tablet (Tab-A-Piedad) 1 tab PO DAILY Supplement 10/11/20
rivastigmine 4.6 mg/24 hour transdermal patch 1 patch transdermal DAILY parkinson 10/11/20
ascorbic acid (vitamin C) 500 mg tablet (Vitamin C) 500 mg PO DAILY Supplement 05/17/24
carbidopa 25 mg-levodopa 100 mg tablet 1 tab PO TID@0800,1300,2000 Neurological Condition 05/17/24
carbidopa ER 25 mg-levodopa 100 mg tablet,extended release 1 tab PO HS Neurological Condition 05/17/24
ipratropium bromide 21 mcg (0.03 %) nasal spray 2 spray intranasal BID Allergies 05/17/24
methenamine hippurate 1 gram tablet 1 g PO BID Infection 05/17/24
peg 400-propylene glycol (PF) 0.4 %-0.3 % eye drops in a dropperette (Systane (PF)) 1 drp BOTH EYES 6XD PRN dry eyes 05/17/24
cyanocobalamin (vitamin B-12) 1,000 mcg tablet 1,000 mcg PO DAILY #30 tabs 05/26/24
acetaminophen 325 mg tablet 650 mg PO Q4HPRN PRN mild pain/fever>100 06/10/24
bisacodyl 10 mg rectal suppository (Dulcolax (bisacodyl)) 10 mg VA DAILYPRN PRN if mom is ineffective/give on day 5 of no bm 06/10/24
ciprofloxacin HCl 500 mg tablet (Cipro) 500 mg PO BID 06/10/24
magnesium hydroxide 400 mg/5 mL oral suspension (Milk of Magnesia) 30 ml PO DAILYPRN PRN if no bm on day 4 06/10/24
sodium phosphates 19 gram-7 gram/118 mL enema (Fleet Enema) 118 ml VA DAILYPRN PRN if dulcolax is ineffective/give on day 6 of no bm 06/10/24
Review of Systems
-
Constitutional: Reports No Symptoms
EENT: Reports No Symptoms
Respiratory: Reports Cough
Cardiac: Reports No Symptoms
Abdomen/GI: Reports No Symptoms
: Reports No Symptoms
Musculoskeletal: Reports No Symptoms and Edema (left LE edema)
Skin: Reports No Symptoms
Neurological: Reports Weakness and Other (lethargic)
Endocrine: Reports No Symptoms
Hematologic/Lymphatic: Reports No Symptoms
Psych: Reports No Symptoms
Physical Exam
Vital Signs
Vital Signs
Temp Pulse Resp BP Pulse Ox
97.5 F 87 12 158/79 98
06/10/24 15:03 06/10/24 17:45 06/10/24 17:45 06/10/24 17:00 06/10/24 17:45
Physical Exam
General: Well Developed, Well Nourished and No Apparent Distress
HEENT: NormoCephalic, Moist mucous membranes and Atraumatic
Respiratory: Clear
Cardiac: S1/S2 and Regular Rhythm; No Murmur or Rub
GI: Soft, Non Tender, Non Distended and Normal Bowel Sounds; No Organomegaly
Rectal: Deferred by Provider
Genito-urinary: Rick
Musculoskeletal: No Clubbing, No Cyanosis and Other (left LE edema)
Skin: Rash
Neuro: AO x 3 and Nonfocal/grossly intact
Psych: Calm
Laboratory Results
-
06/10/24 15:17
06/10/24 15:17
Laboratory Results
Total Bilirubin 0.8 mg/dl (0.2-1.3) 06/10/24 15:17
AST 19 U/L (17-59) 06/10/24 15:17
ALT 13 U/L (0-50) 06/10/24 15:17
Alkaline Phosphatase 92 U/L (38-126) 06/10/24 15:17
Data Reviewed
-
Lab Data: Labs Reviewed by me
Impression/Plan
-
#catheter associated UTI
-failed out patient therapy
-Urine culture from () with ESBL
-iv Merrem continued
-ID consulted
-catheter was changed in ER.
# Dementia
-memantine continued
# Parkinson's disease
-carbidopa continued
# History of stroke
# Ambulatory dysfunction
# Valvular disease
05/19/24 echo w/ mod-sev , mod AR
# Chronic indwelling Rick
# h/o BPH
Chronic Rick was changed in ED on admission
# HLD
-statin
# Essential HTN
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
-Cont FOREIGN CLERK chronic Acyclovir
DVT ppx: Lovenox SQ
Full code
--- NOTE | 2024-06-10 18:49 | W.PN.UPDATE ---
Update Note
Progress Note Update
This note serves as an addendum to the H&P by transaction advisory services manager CASIMIRO Jenniffer FAN
HPI
84M minimally verbal as baseline HX dementia, Parkinson's, chronic indwelling Harrison catheter pw with concerns of
- worsening UTI symptoms despite cipro ates he has not improved
- associated less active and extremely fatigued
- denies fevers or chills, abdominal pain, hematuria, flank pain, pelvic pain.
PHX
Dementia
Parkinson's disease
History of stroke
Ambulatory dysfunction
Valvular heart disease with moderate to severe aortic stenosis, moderate aortic regurgitation
Chronic indwelling Harrison
History of benign prostate hypertrophy
Hyperlipidemia
Essential hypertension
History of myelodysplastic syndrome status post stem cell transplant, on chronic acyclovir
Reviewed VS:
Vital Signs
Temp Pulse Resp BP Pulse Ox
97.5 F 85 13 151/90 99
06/10/24 15:03 06/10/24 18:30 06/10/24 18:30 06/10/24 18:00 06/10/24 18:30
PE
Gen: alert but not communicative
HEENT: anicteric , dry OM
Neck: supple
Lungs: symmetric AE
Cor: RRR S1 S2
Abdomen: soft benign
: clear light yellow urine
LINOLEUM INSTALLER: alert
MS:LLEx edema
Psych:
Data
WCC 8.5
nl Cr eGFR > 60
UA: POS Nitrites, POS LE WCC 16-20
Last hospitalist admission: Date of Admission: 05/17/24 - Date of Discharge: 05/26/24
Principal Diagnosis:
Generalized weakness, complicated urinary tract infection (UTI)/catheter associated UTI with ESBL E coli
Confusion, likely due to medication side effect from Merrem
ASSESSMENT & PLAN
Recurrent CAUTI / complicated UTI : less pyuric
Recurrent infective encephalopathy
HX ESBL E Coli recently treatd with Meropenem
06/10/24 :Chronic harrison was changed in ED on admission
HX BPH
- UCx
- Empiric IV Meropenem
- IV NS
- Tylenol PRN for fever
- ID consult
HLD
- on statin
Essential HTN
HX MDS s/p stem cell transplant 17 years ago
-c/w VEGETABLE GRADER chronic Acyclovir
Valvular disease: 05/19/24 echo w/ mod-sev , mod AR
- Follow-up with usual regional sales trainer Dr. Bucio outpatient
Lt LE edema
Recent echo from 02/2024: EF 55 and 60% with mild concentric LVH and stage II diastolic dysfunction.
Mild mitral regurgitation.
05/23/24 Lower extremity Dopplers negative for DVT, continue compression stockings
Known HX
Dementia
Parkinson's disease
HX stroke
Ambulatory dysfunction
DVT Px: LMWH
Code: Full
IP MS
[2024-06-10] MEDS: INVANZ 60 MG IV (19:26)
[2024-06-10] MEDS: NSS 1000 IV (19:28)
--- NOTE | 2024-06-10 22:34 | TRANSFER ---
Addendum entered by Shobha Boswell RN 06/10/24 22:50:
Pt's daughter Emerald updated w/room change
Original Note:
Pt transferred to private room in bed w/glasses. Verbal report to RN.
[2024-06-10] MEDS: SINEMET 25-100 1 TABLET PO (22:42)
[2024-06-10] MEDS: NAMENDA 10 MG PO (22:42)
[2024-06-10] MEDS: ZOVIRAX 800 MG PO (22:42)
[2024-06-10] MEDS: SINEMET CR 25-100 (EXTENDED RELEASE) 1 TABLET PO (22:42)
[2024-06-10] MEDS: STERILE WATER FOR INJECTION 10 ML IV (23:00)
[2024-06-10] MEDS: MERREM 500 MG IV (23:00)
--- NOTE | 2024-06-10 23:00 | PTCARENOTE ---
Pt transferred from [facility]. Pt AAOX1/2, VSS, chronic harrison. Pt confused, bed alarm applied. Pt oriented to unit, call palacio within reach. Will continue with current plan.
--- NOTE | 2024-06-11 04:07 | DOWNTIME ---
There was a [employer] Shift Supervisor Downtime on 06/11/2024 from 0100 to 06/11/2024 at 0355. Downtime documentation of patient's care, including medication administrations, has been reconciled in the electronic record per guidelines. Refer to the
patient's paper chart under the miscellaneous tab to see printed paper medication records and downtime forms.
[2024-06-11] MEDS: MERREM 500 MG IV ×3 (05:17→18:00)
[2024-06-11] MEDS: STERILE WATER FOR INJECTION 10 ML IV ×3 (05:18→18:00)
--- NOTE | 2024-06-11 07:26 | W.PN.HOSP.TC ---
Today's Communication/Plan
-
cont abx
ST/PT/OT
Assessment / Plan
Assessment / Plan
Physical Exam
General: Well Developed, Well Nourished and No Apparent Distress
HEENT: NormoCephalic, Moist mucous membranes and Atraumatic
Respiratory: Clear
Cardiac: S1/S2 and Regular Rhythm; No Murmur or Rub
GI: Soft, Non Tender, Non Distended and Normal Bowel Sounds; No Organomegaly
Genito-urinary: Rick
Musculoskeletal: No Clubbing, No Cyanosis, No edema, some rigidity upper ext's noted
Neuro: AO x 3
Psych: Calm
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 history obtained from
. patient was noted lethargic for past few days. he is sleeping more than usual. he was noted very weak. patient stated some non productive cough, and complained of chest pain with cough. denied GREEN, dizzy or syncopal episode. denied abdominal
pain,n,v,d. patient was started on Cipro at [facility].
patient was admitted her last month with UTI. he was then discharged to [facility]. stated left LE swelling, which improved with Lasix.
positive UA, treated with meropenem in ER. admitted for further management.
#catheter associated UTI
-failed out patient therapy
-Urine culture from () with ESBL
-iv Merrem continued
-ID consult appreciated planned 14 day course IV abx
-catheter was changed in ER.
# Dementia
-memantine continued
# Parkinson's disease
-carbidopa continued
-ST eval appreciated pureed diet
-PT/OT appreciated SNF rehab
# History of stroke
# Ambulatory dysfunction
# Valvular disease
05/19/24 echo w/ mod-sev , mod AR
# Chronic indwelling Rick
# h/o BPH
Chronic Rick was changed in ED on admission
# HLD
-statin
# Essential HTN
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
-Cont FILE SYSTEM INSTALLER chronic Acyclovir
DVT ppx: Lovenox SQ
Full code
discussed with patient, patient's daughter Emearld KATHY, and patient's Cydney
I spent a total of 50 minutes with the patient or on the floor. More than 50% of this time involved counseling and coordination of care.
Anticipated Discharge: 24 - 48 hours
Subjective/Interval History
-
Date of Service: June 11, 2024
No acute distress sitting up comfortably in bed. Speaks minimally. AOx3
Objective Data
-
Labs:
Laboratory Results
06/11/24
06:00
WBC Pending
Hgb Pending
Hct Pending
Plt Count Pending
Sodium Pending
Potassium Pending
Chloride Pending
Carbon Dioxide Pending
BUN Pending
Creatinine Pending
Glucose Pending
Calcium Pending
Vital Signs:
Vital Signs
Temp Pulse Resp BP Pulse Ox
98.4 F 78 14 139/70 98
06/10/24 22:37 06/10/24 22:37 06/10/24 22:37 06/10/24 22:37 06/10/24 22:37
I&O
06/10/24 06/11/24 06/12/24
06:59 06:59 06:59
Output Total 750 / 750
Balance -750 / -750
[2024-06-11 07:50] VITALS: BP 162/87
[2024-06-11] MEDS: DESENEX/MITRAZOL/ZEASORB 1 APPLIC TOPICAL ×2 (08:40→21:07)
[2024-06-11] MEDS: SINEMET 25-100 1 TABLET PO ×3 (08:41→21:07)
[2024-06-11] MEDS: ZOVIRAX 800 MG PO ×2 (08:41→21:07)
[2024-06-11] MEDS: VITAMIN B-12 1000 MCG PO (08:41)
[2024-06-11] MEDS: NAMENDA 10 MG PO ×2 (08:41→21:07)
[2024-06-11] MEDS: LIPITOR 20 MG PO (08:41)
[2024-06-11 09:23] LABS: Hematocrit 38.2 % (39.0-52.0); Hemoglobin 13.3 g/dL (13.0-18.0); Mean Corp Hgb Conc. 34.8 g/dL (33.0-37.0); Mean Corpuscular Hgb 34.5 pg (27.0-31.0); Platelet Count 210 10^3/uL (130-400); Red Blood Cell Count 3.86 10^6/uL (4.70-6.10); Red Cell Dist. Width 12.7 % (11.5-14.5); White Blood Cell Count 8.5 10^3/uL (4.8-10.8)
[2024-06-11] MEDS: EXELON PATCH 4.6 MG TRANSDERM (10:09)
[2024-06-11 10:18] LABS: Blood Urea Nitrogen 15 mg/dl (9-20); Calcium 8.8 mg/dl (8.4-10.2); Carbon Dioxide 25 mmol/L (22-30); Chloride 101 mmol/L (98-107); Estimated Creatinine Clearance 81 ml/min; Glucose 77 mg/dl (70-99); Sodium 136 mmol/L (135-145); eGFR > 60.00
[2024-06-11 10:50] VITALS: BP 142/75; PULSE 86; O2SAT 96
[2024-06-11 11:00] VITALS: BP 142/75; PULSE 90; O2SAT 95
[2024-06-11] MEDS: NSS 1000 IV (11:59)
--- NOTE | 2024-06-11 13:39 | CON.ID ---
Addendum entered and electronically signed by Lisset Hammonds MD 06/12/24 16:42:
I personally performed a history and physical exam of the patient and discussed management with the resident. I reviewed the resident's seperatly documented note and agree with the documented findings and plan of care HPI/CC with the following
additions/corrections:
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
nonproductive cough and pleuritic chest pain. No headache, syncope, abdominal pain, nausea, vomiting, diarrhea. He was started on empiric ciprofloxacin at [facility] 5 days ago without significant improvement.
Since arrival here he has been afebrile, bp stable, wbc 8.5, hgb 13.8, plt 232, no left shift, cr 0.9, t bili 0.8, ast 19, alt 13, alk phos 92, ua 16-20 wbc/hpf and many bacteria, urine culture / 100K E coli, / urine culture 100K ESBL E coli
resistant to ciprofloxacin and 100K Pseudomonas sensitive to ciprofloxacin.
A&P:
CAUTI
BPH
MDS s/p SCT 2008
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
- harrison replaced this admission
- CT a/p without contrast
- continue meropenem - plan 14 day course
- midline placement
AW
Original Note:
Consultation
-
Date/Time Consultation Requested: 06/10/2020 4-18:39 PM.
Date/Time Consultation Performed: 06/11/2024-1:40 PM
Requesting Provider: Lynne Doyle CRNP
Performing Provider: Esperanza Arroyo MD for Lisset Hammonds MD
Reason for Consultation: Complicated UTI.
Chief Complaint / Past History
Chief Complaint
Lethargy and altered mental status.
History of Present Illness
84-year-old male with recent hospitalization from 05/17/2024 through 05/26/2024 for recurrent E. coli associated UTI in the setting of chronic indwelling Harrison's catheter presented to the hospital on 06/10/2024 for acute change in mental status and
lethargy.His past medical history significant for dementia, myelodysplastic syndrome, BPH with chronic indwelling Harrison's catheter and chronic, recurrent UTIs.
His brought him to the ER coding lethargy over the past few days, she noticed him to be very weak and sleeping more than usual.
Patient reported to have some chest pain with nonproductive cough.
he denied having fevers chills abdominal pain hematuria flank pain and pelvic pain upon arrival to the emergency room.
Currently history is obtained from review of patient's medical records, talking to his and previous hospital admission notes.
Upon arrival to the emergency room,He was afebrile, had systolic hypertension with blood pressure at 146/79, not tachycardic or tachypneic and was satting on room air. His white blood cell count was within normal limits, his hemoglobin was normal
with elevated MCV, his differentials were normal, platelet counts were also normal. His CMP was within normal limits, his urine analysis was positive for urine nitrites, leukocyte esterase 2+, urine WBCs of 16-20 and bacteriuria noted.
His CBC and BMP today look normal.
Of note patient had multiple episodes of Proteus mirabilis in 2021, E. coli on 05/09/2024, ESBL E. coli and Pseudomonas on 06/03/2024, and E. coli on 06/10/2024 with cultures pending. He received 1 dose of ertapenem yesterday and is currently on
meropenem 500 mg-day 2 today.
Also finished a 5-day course of ciprofloxacin in the halfway for his 06/03/2024 cultures.
Past History
Past Medical History: Other ( E coli BPh MDS HTn HLD COPD dementia polycythemia neurogenic bladder parkinson disease)
Past Surgical History: Other (bone marrow transplant hernia repair cholecystectomy)
Allergy History:
levofloxacin [From Levaquin] Allergy (Verified 09/12/21 12:29)
Mental confusion - 'went blank'
sulfamethoxazole [From Bactrim] Allergy (Verified 05/19/24 16:12)
Unknown
trimethoprim [From Bactrim] Allergy (Verified 05/19/24 16:12)
Unknown
Medications Reviewed: Yes
Social History
Tobacco: Non-Smoker
Alcohol: None
Drug: None
Personal:
Living: Assisted Living
Employment: Retired
Family History
Family History: Not Pertinent
Review of Systems
Review of Systems
Review of systems could not be obtained from the patient as patient is not oriented.
Vital Signs
Temp Pulse Resp BP Pulse Ox
97.7 F 83 17 162/87 97
06/11/24 07:50 06/11/24 07:50 06/11/24 07:50 06/11/24 07:50 06/11/24 07:50
Physical Exam
Physical Exam
Constitutional: Comfortable
Cardiovascular: Irregular Rate, S1/S2 and Murmur; Negative Rub or Gallop
Pulmonary: Clear; Negative Wheezes, Rales or Rhonchi
Gastrointestinal: Soft, Tender (In the right and left lower quadrants.), Non Distended, Normal Bowel Sounds and No Rebound
Genito-Urinary: Suprapubic Tenderness; Negative CVA Tenderness
Extremities: Edema (Pitting edema.)
Skin: Warm
Neurological: Awake and Alert
Psychological: Calm
Lab / Diagnostic Study Results
06/11/24 08:07
06/11/24 08:07
Abs Immat Gran (auto) 0.0 10^3/uL (0-0.05) 06/10/24 15:17
Absolute Neuts (auto) 5.6 10^3/uL (1.4-6.5) 06/10/24 15:17
Absolute Lymphs (auto) 1.9 10^3/uL (1.2-3.4) 06/10/24 15:17
Absolute Monos (auto) 0.6 10^3/uL (0.1-0.6) 06/10/24 15:17
Absolute Basos (auto) 0.0 10^3/uL (0-0.2) 06/10/24 15:17
Immature Gran % 0.5 % (0-0.5) 06/10/24 15:17
Neutrophils % 65.2 % (42.2-75.2) 06/10/24 15:17
Lymphocytes % 22.3 % (20.5-51.1) 06/10/24 15:17
Monocytes % 7.4 % (1.7-9.3) 06/10/24 15:17
Eosinophils % 4.2 % (0-6) 06/10/24 15:17
Basophils % 0.4 % (0-2) 06/10/24 15:17
Microbiology Results
Micro:
06/10/24 15:17 Urine Culture - Preliminary
Urine Escherichia coli
06/10/24 22:30 MRSA Screen - Pending
Nose
06/10/24 17:07 Influenza Types A & B (NADEGE) - Final
Nasal Swab Negative for Influenza A & B, NAAT
Negative results must be combined with clinical observations
and patient history.
Nucleic Acid Amplification test (NAAT)performed on the
[employer] platform.
Assessment / Plan
Assessment- Mary, 84 Yo M with complicated past medical history of neurogenic bladder and BPH-chronic indwelling Harrison's presents with lethargy, fatigue and weakness. Diagnosed with complicated UTI secondary to E. coli.
Subjective-
Objective-afebrile, vital signs stable
Greater than 100,000 CFU's of E. coli on urine culture.
Plan-
Recurrent UTI-
Suspect secondary to chronic Harrison catheterization.
Plan to obtain a CT abdomen and pelvis to reassess for prostatitis, pyelonephritis, nephrolithiasis or prostrate stones.
Currently patient is on meropenem-day 1.
Received single dose of Ertapenem.
Plan to continue meropenem for 14 days.
--- NOTE | 2024-06-11 14:15 | W.PN.UPDATE ---
Update Note
Progress Note Update
I personally performed a history and physical exam of the patient and discussed management with the resident. I reviewed the resident's seperatly documented note and agree with the documented findings and plan of care HPI/CC with the following
additions/corrections:
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
nonproductive cough and pleuritic chest pain. No headache, syncope, abdominal pain, nausea, vomiting, diarrhea. He was started on empiric ciprofloxacin at [facility] 5 days ago without significant improvement.
Since arrival here he has been afebrile, bp stable, wbc 8.5, hgb 13.8, plt 232, no left shift, cr 0.9, t bili 0.8, ast 19, alt 13, alk phos 92, ua 16-20 wbc/hpf and many bacteria, urine culture 10/5 100K E coli, 10/8 urine culture 100K ESBL E coli
resistant to ciprofloxacin and 100K Pseudomonas sensitive to ciprofloxacin.
A&P:
CAUTI
BPH
MDS s/p SCT 2008
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
- harrison replaced this admission
- CT a/p without contrast
- continue meropenem - plan 14 day course
- midline placement
AW
[2024-06-11 15:06] VITALS: BP 144/76
--- NOTE | 2024-06-11 15:09 | PTOTSP ---
Dysphagia Evaluation
Patient presents with signs concerning for at least moderate oral dysphagia and unspecified pharyngeal dysphagia. Signs concerning for aspiration noted with consecutive drinking of thin liquids. Risk factors for acute on chronic dysphagia include
UTI with baseline dementia, Parkinson's, CVA, and COPD.
Recommend:
1. IDDSI 4 Puree, Thin liquids via cup
2. Medications - crushed in puree
3. Full supervision and assistance
4. Strategies: PO only when awake/alert, small single sips/bites, ensure patient swallows before next sip/bite, reflux precautions
5. Oral care 3x daily
6. Dysphagia tx at the acute care level
--- NOTE | 2024-06-11 15:58 | CM ---
consumer marketing manager reviewed patient's chart and met with patient and spouse, patient has been admitted from [facility] where patient has been skilled for 16 days, patient and spouse did not hold the bed at [facility]. Prior to skilled placement patient lives
with spouse in a 2 story home with one step to enter, patient is independent with adls and uses a cane or walker with ambulation.
PCP: Dr Lund
Pharmacy [facility] [place]
Plan; Will await PT/OT notes for recommendations for patient.
[2024-06-11] MEDS: LOVENOX 40 MG SC (17:59)
[2024-06-11] MEDS: SINEMET CR 25-100 (EXTENDED RELEASE) 1 TABLET PO (21:07)
[2024-06-11 23:30] VITALS: BP 147/78
[2024-06-12] MEDS: MERREM 500 MG IV ×4 (00:32→17:38)
[2024-06-12] MEDS: STERILE WATER FOR INJECTION 10 ML IV ×4 (00:32→17:38)
[2024-06-12] MEDS: NSS 1000 IV (06:04)
[2024-06-12 06:51] LABS: Hematocrit 34.8 % (39.0-52.0); Hemoglobin 12.1 g/dL (13.0-18.0); Mean Corp Hgb Conc. 34.8 g/dL (33.0-37.0); Mean Corpuscular Hgb 35.1 pg (27.0-31.0); Mean Corpuscular Volume 100.9 fL (80.0-94.0); Platelet Count 199 10^3/uL (130-400); Red Blood Cell Count 3.45 10^6/uL (4.70-6.10); Red Cell Dist. Width 12.8 % (11.5-14.5); White Blood Cell Count 6.9 10^3/uL (4.8-10.8)
[2024-06-12 07:14] LABS: Blood Urea Nitrogen 16 mg/dl (9-20); Calcium 8.5 mg/dl (8.4-10.2); Carbon Dioxide 26 mmol/L (22-30); Chloride 103 mmol/L (98-107); Estimated Creatinine Clearance 72 ml/min; Glucose 81 mg/dl (70-99); Potassium 4.2 mmol/L (3.5-5.1); Sodium 138 mmol/L (135-145); eGFR > 60.00
--- NOTE | 2024-06-12 07:30 | W.PN.HOSP.TC ---
Today's Communication/Plan
-
cont abx
incentive spirometer
ST/PT/OT
bowel regimen
Assessment / Plan
Assessment / Plan
Physical Exam
General: Well Developed, Well Nourished and No Apparent Distress
HEENT: NormoCephalic, Moist mucous membranes and Atraumatic
Respiratory: Clear
Cardiac: S1/S2 and Regular Rhythm; No Murmur or Rub
GI: Soft, Non Tender, Non Distended and Normal Bowel Sounds; No Organomegaly
Genito-urinary: Rick
Musculoskeletal: No Clubbing, No Cyanosis, No edema, some rigidity upper ext's noted
Neuro: Awake alert minimal speech but fluent coherent when speaking
Psych: Calm
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 history obtained from
. patient was noted lethargic for past few days. he is sleeping more than usual. he was noted very weak. patient stated some non productive cough, and complained of chest pain with cough. denied GREEN, dizzy or syncopal episode. denied abdominal
pain,n,v,d. patient was started on Cipro at [facility].
patient was admitted her last month with UTI. he was then discharged to [facility]. stated left LE swelling, which improved with Lasix.
positive UA, treated with meropenem in ER. admitted for further management.
#catheter associated UTI
-failed out patient therapy
-Urine culture from () with ESBL
-iv Merrem continued
-ID consult appreciated planned 14 day course IV abx midline placed
-catheter was changed in ER.
CT abd/pelvis appreciated
-bibasilar atelectasis possible left lower lobe pna also noted on CXR (incentive spirometer ordered, current abx already covers if PNA is true)
-no urinary tract calculus or dilatation
-stable moderate L3 compression fracture chronic
# Dementia
# Parkinson's disease
#Dysphagia
-memantine continued
-carbidopa continued
-ST eval appreciated pureed diet
-PT/OT appreciated SNF rehab
# History of stroke
# Ambulatory dysfunction
cont PT/OT
# Valvular disease
05/19/24 echo w/ mod-sev , mod AR
# Chronic indwelling Rick
# h/o BPH
Chronic Rick was changed in ED on admission
Maintain
# HLD
-statin
# Essential HTN
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
#Constipation
bowel regimen started
DVT ppx: Lovenox SQ
Full code
discussed with patient and patient's Cydney
I spent a total of 40 minutes with the patient or on the floor. More than 50% of this time involved counseling and coordination of care.
Anticipated Discharge: 24 - 48 hours
Subjective/Interval History
-
Date of Service: June 12, 2024
No acute distress appears comfortable at this time. Noted constipation. Speech is fluent though speaks minimally. Cydney present during evaluation
Objective Data
-
Labs:
Laboratory Results
06/12/24
06:00
WBC 6.9
Hgb 12.1 L
Hct 34.8 L
Plt Count 199
Sodium 138
Potassium 4.2
Chloride 103
Carbon Dioxide 26
BUN 16
Creatinine 0.9
Glucose 81
Calcium 8.5
Vital Signs:
Vital Signs
Temp Pulse Resp BP Pulse Ox
98.1 F 86 14 147/78 94
06/11/24 23:30 06/11/24 23:30 06/11/24 23:30 06/11/24 23:30 06/11/24 23:30
I&O
06/11/24 06/12/24 06/13/24
06:59 06:59 06:59
Intake Total 1320 / 1320
Output Total 750 / 750 1700 / 1700
Balance -750 / -750 -380 / -380
[2024-06-12 07:55] VITALS: BP 142/74
--- NOTE | 2024-06-12 08:31 | PN.CDI ---
CDI
- -
CDI:
Physician Documentation Request
Admit Date: 06/10/24 19:11
Dear Doctor Phil,
Clinical Indicators:
Patient admitted with CAUTI; failed outpatient therapy.
06/10 H & P, 'patient was noted lethargic for past few days. he is sleeping more than usual. he was noted very weak. '
06/10 Update note, Recurrent CAUTI / complicated UTI...Recurrent infective encephalopathy'
Please clarify the type of encephalopathy:
Acute Metabolic Encephalopathy
Toxic Metabolic Encephalopathy
Other Encephalopathy, please specify
Other, please specify
Use of terms such as suspected, likely, concern for, or probable (associated with a specific diagnosis that is being evaluated, monitored, or treated as if it exists) are acceptable and can be coded in the inpatient setting, when documented at the
time of discharge.
Thank you,
Ann Virgen RN BSN
CDI Specialist
available via tiger text
Please use your independent medical judgment in providing your response.
--- NOTE | 2024-06-12 08:32 | W.PN.ID1 ---
Addendum entered and electronically signed by Lisset Hammonds MD 06/12/24 15:23:
I saw and evaluated the patient. I reviewed the resident�s note and agree with findings and plan as documented in the resident�s note.
Coarse, nonproductive cough ongoing
CXR possible retrocardiac infiltrate - possible aspiration - meropenem will be more than adequate coverage
has line
stable for dc from ID perspective
Original Note:
Documented by User: Esperanza Arroyo MD, Resident 06/12/24 11:15
Date of Service
Date of Service: June 12, 2024
Today's Communication
Continue meropenem for 14 days.
Assessment / Plan
Assessment- Mary, 84 Yo M with complicated past medical history of neurogenic bladder and BPH-chronic indwelling Rick's presents with lethargy, fatigue and weakness. Diagnosed with complicated UTI secondary to E. coli.
Subjective-
Objective-afebrile, vital signs stable
Greater than 100,000 CFU's of E. coli on urine culture.
Plan-
Recurrent UTI-
Suspect secondary to chronic Rick catheterization.
CT abdomen and pelvis without contrast has no evidence for renal or ureteric calculi..
Currently patient is on meropenem-day 1.
Received single dose of Ertapenem.
Plan to continue meropenem for 14 days.
Chief Complaint
-: UTI
Subjective / Review of Systems
Overnight patient continues to remain lethargic and somnolent. He is oriented to his name but not to date place and person. Review of systems could not be obtained from the patient as patient is not oriented.
Vital Signs / Physical Exam
Vital Signs
Vital Signs
Temp Pulse Resp BP Pulse Ox
97.5 F 80 16 142/74 95
06/12/24 07:55 06/12/24 07:55 06/12/24 07:55 06/12/24 07:55 06/12/24 07:55
Physical Exam
Constitutional: Comfortable and Other (Somnolent.)
Cardiovascular: Regular Rate, S1/S2 and Murmur; Negative Rub or Gallop
Pulmonary: Clear; Negative Wheezes, Rales or Rhonchi
Gastrointestinal: Soft, Non Tender, Non Distended and Normal Bowel Sounds
Genito-Urinary: Rick and Suprapubic Tenderness; Negative CVA Tenderness
Extremities: Edema (1+ pitting edema present)
Neurological: Alert; Negative Oriented
Psychological: Calm
Objective Data
Lab Data
Lab Results
06/12/24 06:00
06/12/24 06:00
Estimated Creat Clear 72 ml/min 06/12/24 06:00
Total Bilirubin 0.8 mg/dl (0.2-1.3) 06/10/24 15:17
AST 19 U/L (17-59) 06/10/24 15:17
ALT 13 U/L (0-50) 06/10/24 15:17
Alkaline Phosphatase 92 U/L (38-126) 06/10/24 15:17
Most recent labs reviewed.
Micro Results:
06/10/24 15:17 Urine Culture - Preliminary
Urine Escherichia coli
06/10/24 22:30 MRSA Screen - Pending
Nose
06/10/24 17:07 Influenza Types A & B (NADEGE) - Final
Nasal Swab Negative for Influenza A & B, NAAT
Negative results must be combined with clinical observations
and patient history.
Nucleic Acid Amplification test (NAAT)performed on the
[employer] platform.
CT abdomen pelvis without contrast-06/12/2024-
Bibasilar subsegmental atelectasis, left greater than right. Left lower lobe pneumonia cannot be excluded.
Small pericardial effusion.
No findings to suggest urinary tract calculus or dilatation bilaterally. Minor bilateral perinephric stranding, nonspecific. Evaluation for renal infection such as pyelonephritis markedly limited without intravenous contrast.
Virtually completely empty urinary bladder containing Rick catheter and air. Evaluation for urinary bladder infection markedly limited due to incomplete distention, Rick catheter, air and lack of excreted contrast.
Stable moderate L3 vertebral compression fracture, chronic.

Documented by User: Lisset Hammonds MD 06/12/24 13:46
Today's Communication
Plan-
Recurrent UTI-
Suspect secondary to chronic Rick catheterization.
Plan to obtain a CT abdomen and pelvis to reassess for prostatitis, pyelonephritis, nephrolithiasis or prostrate stones.
Currently patient is on meropenem-day 1.
Received single dose of Ertapenem.
Plan to continue meropenem for 14 days.
[2024-06-12] MEDS: DESENEX/MITRAZOL/ZEASORB 1 APPLIC TOPICAL ×2 (09:46→21:32)
[2024-06-12] MEDS: EXELON PATCH 4.6 MG TRANSDERM (09:46)
[2024-06-12] MEDS: LIPITOR 20 MG PO (09:47)
[2024-06-12] MEDS: VITAMIN B-12 1000 MCG PO (09:47)
[2024-06-12] MEDS: SINEMET 25-100 1 TABLET PO ×3 (09:47→21:33)
[2024-06-12] MEDS: NAMENDA 10 MG PO ×2 (09:47→21:33)
[2024-06-12] MEDS: ZOVIRAX 800 MG PO ×2 (09:47→21:33)
--- NOTE | 2024-06-12 10:01 | CM ---
electrical project manager reviewed patient's chart and left message for patient's spouse, Cydney, per physical therapy note recommendation is for skilled placement, case planner reached out to patient's spouse to see if plan is for patient to return to [facility]
when stable.
Plan; Message left for patient's spouse regarding possible return to [facility] when stable, patient's spouse did not hold bed for patient.
[2024-06-12 15:59] VITALS: BP 147/77
[2024-06-12] MEDS: LOVENOX 40 MG SC (17:38)
[2024-06-12] MEDS: SENOKOT-S 1 TABLET PO (21:33)
[2024-06-12] MEDS: SINEMET CR 25-100 (EXTENDED RELEASE) 1 TABLET PO (21:33)
[2024-06-12 23:30] VITALS: BP 125/72
[2024-06-13] MEDS: STERILE WATER FOR INJECTION 10 ML IV ×5 (00:03→23:33)
[2024-06-13] MEDS: MERREM 500 MG IV ×5 (00:03→23:34)
[2024-06-13 05:15] LABS: Hematocrit 32.7 % (39.0-52.0); Hemoglobin 11.3 g/dL (13.0-18.0); Mean Corp Hgb Conc. 34.6 g/dL (33.0-37.0); Mean Corpuscular Hgb 33.7 pg (27.0-31.0); Mean Corpuscular Volume 97.6 fL (80.0-94.0); Mean Platelet Volume 8.9 fL (7.4-10.4); Platelet Count 202 10^3/uL (130-400); Red Blood Cell Count 3.35 10^6/uL (4.70-6.10); White Blood Cell Count 8.3 10^3/uL (4.8-10.8)
[2024-06-13 05:40] LABS: Blood Urea Nitrogen 24 mg/dl (9-20); Calcium 8.7 mg/dl (8.4-10.2); Carbon Dioxide 27 mmol/L (22-30); Chloride 105 mmol/L (98-107); Estimated Creatinine Clearance 72 ml/min; Glucose 88 mg/dl (70-99); Magnesium 1.8 mg/dl (1.6-2.3); Phosphorus 2.9 mg/dl (2.5-4.5); Potassium 4.4 mmol/L (3.5-5.1); Sodium 139 mmol/L (135-145); eGFR > 60.00
[2024-06-13 07:00] VITALS: BP 146/73
--- NOTE | 2024-06-13 07:23 | W.PN.HOSP.TC ---
Today's Communication/Plan
-
cont abx as per ID
ST/PT/OT
PMR eval for possible benefit Acute Rehab decompensated Parkinson
Bowel Regimen
once Bisacodyl suppository
Assessment / Plan
Assessment / Plan
Physical Exam
General: Well Developed, Well Nourished and No Apparent Distress
HEENT: NormoCephalic, Moist mucous membranes and Atraumatic
Respiratory: Clear
Cardiac: S1/S2 and Regular Rhythm; No Murmur or Rub
GI: Soft, Non Tender, Non Distended and Normal Bowel Sounds; No Organomegaly
Genito-urinary: Rick
Musculoskeletal: No Clubbing, No Cyanosis, No edema, some rigidity upper ext's noted
Neuro: Awake alert minimal speech but fluent coherent when speaking
Psych: Calm
84M Dementia, MDS, Parkinson's, BPH chronic Rick, chronic UTIs p/w concerns AMS. History obtained from . Patient was noted lethargic for past few days, sleeping more than usual, noted very weak. Patient was started on Cipro at [facility].
Admitted last month with UTI. he was discharged to [facility]. Recurrent UTI, Rick was exchanged in ED, started on meropenem, admitted for further management treatment.
#catheter associated UTI
-failed out patient therapy
-Urine culture from () with ESBL
-iv Merrem continued
-ID consult appreciated planned 14 day course IV abx midline placed
-catheter was changed in ER.
CT abd/pelvis appreciated
-bibasilar atelectasis possible left lower lobe pna also noted on CXR (incentive spirometer ordered, current abx already covers if PNA is true)
-no urinary tract calculus or dilatation
-stable moderate L3 compression fracture chronic
# Dementia
# Parkinson's disease
#Dysphagia
-memantine continued
-carbidopa continued
-ST eval appreciated pureed diet
-PT/OT appreciated SNF rehab
-PMR eval requested for possible benefit Acute Rehab, decompensated Parkinson
# History of stroke
# Ambulatory dysfunction
cont PT/OT daily if possible
# Valvular disease
05/19/24 echo w/ mod-sev , mod AR
# Chronic indwelling Rick
# h/o BPH
Chronic Rick was changed in ED on admission
Maintain
# HLD
-statin
# Essential HTN
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
#Constipation
cont bowel regimen
once bisacodyl suppository 06/13
DVT ppx: Lovenox SQ
Full code
discussed with patient, patient's Cydney, and camryn Davila
I spent a total of 40 minutes with the patient or on the floor. More than 50% of this time involved counseling and coordination of care.
Anticipated Discharge: 24 - 48 hours
Subjective/Interval History
-
Date of Service: June 13, 2024
No acute distress sitting up comfortably in bed. Awake speaks minimally but fluent coherent when speaking. Mentation seems slow. Cydney and camryn Davila present during evaluation.
Objective Data
-
Labs:
Laboratory Results
06/13/24
04:47
WBC 8.3
Hgb 11.3 L
Hct 32.7 L
Plt Count 202
Sodium 139
Potassium 4.4
Chloride 105
Carbon Dioxide 27
BUN 24 H
Creatinine 0.9
Glucose 88
Calcium 8.7
Vital Signs:
Vital Signs
Temp Pulse Resp BP Pulse Ox
98.7 F 87 18 125/72 95
06/12/24 23:30 06/12/24 23:30 06/12/24 23:30 06/12/24 23:30 06/12/24 23:30
I&O
06/12/24 06/13/24 06/14/24
06:59 06:59 06:59
Intake Total 1320 / 1320 1726 / 1726
Output Total 1700 / 1700 1175 / 1175
Balance -380 / -380 551 / 551
[2024-06-13] MEDS: ZOVIRAX 800 MG PO ×2 (07:41→20:55)
[2024-06-13] MEDS: MIRALAX 17 GRAMS PO (07:41)
[2024-06-13] MEDS: NAMENDA 10 MG PO ×2 (07:41→20:54)
[2024-06-13] MEDS: VITAMIN B-12 1000 MCG PO (07:41)
[2024-06-13] MEDS: SENOKOT-S 1 TABLET PO ×2 (07:42→20:54)
[2024-06-13] MEDS: LIPITOR 20 MG PO (07:42)
[2024-06-13] MEDS: EXELON PATCH 4.6 MG TRANSDERM (07:42)
[2024-06-13] MEDS: SINEMET 25-100 1 TABLET PO ×3 (07:42→20:55)
[2024-06-13] MEDS: DESENEX/MITRAZOL/ZEASORB 1 APPLIC TOPICAL ×2 (07:43→20:54)
[2024-06-13 08:51] LABS: Iron 51 ug/dl (49-181)
[2024-06-13 09:00] LABS: Percent Saturation 39 % (20-50); Total Iron Binding Capacity 128 ug/dl (261-462)
[2024-06-13 09:16] LABS: TSH Reflex To Free T4 2.15 uIU/ml (0.47-4.68)
[2024-06-13 09:52] LABS: Folate 19.5 ng/ml (2.76-20); Vitamin B12 695 pg/ml (239-931)
--- NOTE | 2024-06-13 09:53 | W.PN.ID1 ---
Addendum entered and electronically signed by Lisset Hammonds MD 06/13/24 19:08:
I saw and evaluated the patient. I reviewed the resident�s note and agree with findings and plan as documented in the resident�s note.
patient more alert today
complete planned course of meropenem 14 days
has line
stable for dc from ID perspective
AW
Original Note:
Date of Service
Date of Service: June 13, 2024
Today's Communication
Continue meropenem.
Assessment / Plan
Assessment- Mary, 84 Yo M with complicated past medical history of neurogenic bladder and BPH-chronic indwelling Rick's presents with lethargy, fatigue and weakness. Diagnosed with complicated UTI secondary to E. coli.
Subjective-patient is awake and alert, denies having dysuria and suprapubic pain. Cough.
Objective-afebrile, vital signs stable.
Greater than 100,000 CFU's of E. coli on urine culture.
Plan-
Suspected pneumonia-
Cough and productive expectoration.
Past medical history of stroke could likely be secondary to aspiration.
Less likely convinced that this is pneumonia.
Bilateral lower lobe atelectasis. Patient on incentive spirometry.
Even if patient has pneumonia, meropenem will address that.
Recurrent UTI-
Suspect secondary to chronic Rick catheterization. Rick catheter changed upon arrival to the ER on 06/09/2024.
CT abdomen and pelvis without contrast has no evidence for renal or ureteric calculi..
Currently patient is on meropenem-day 1.
Received single dose of Ertapenem.
Plan to continue meropenem for 14 days.
Chief Complaint
-: UTI
Subjective / Review of Systems
Patient is awake and alert, he is also lucid today although he is not oriented to time and place.
Review of Systems: No Fever, No Chills, No Headache, No Pharyngitis, Cough, No Sputum Production, No Chest Pain, No Palpitations, No Abdominal Pain, No Nausea, No Vomiting, No Diarrhea and No Dysuria
Vital Signs / Physical Exam
Vital Signs
Vital Signs
Temp Pulse Resp BP Pulse Ox
98.4 F 84 16 146/73 99
06/13/24 07:00 06/13/24 07:00 06/13/24 07:00 06/13/24 07:00 06/13/24 07:00
Physical Exam
Constitutional: Comfortable (On room air.)
Cardiovascular: Regular Rate, S1/S2 and Murmur; Negative Rub or Gallop
Pulmonary: Clear (Diminished breath sounds in bilateral lower lobes); Negative Wheezes, Rales or Rhonchi
Gastrointestinal: Soft, Non Tender, Non Distended and Normal Bowel Sounds
Genito-Urinary: Negative Suprapubic Tenderness or CVA Tenderness
Extremities: Negative Edema
Skin: Warm
Neurological: Awake, Alert and Oriented (Oriented to person but not to time and place.)
Psychological: Calm
Objective Data
Lab Data
Lab Results
06/13/24 04:47
06/13/24 04:47
Estimated Creat Clear 72 ml/min 06/13/24 04:47
Total Bilirubin 0.8 mg/dl (0.2-1.3) 06/10/24 15:17
AST 19 U/L (17-59) 06/10/24 15:17
ALT 13 U/L (0-50) 06/10/24 15:17
Alkaline Phosphatase 92 U/L (38-126) 06/10/24 15:17
Most recent labs reviewed.
Micro Results:
06/10/24 15:17 Urine Culture - Final
Urine Escherichia coli - ESBL
06/10/24 22:30 MRSA Screen - Final
Nose No Methicillin Resistant Staphylococcus aureus isolated.
06/10/24 17:07 Influenza Types A & B (NADEGE) - Final
Nasal Swab Negative for Influenza A & B, NAAT
Negative results must be combined with clinical observations
and patient history.
Nucleic Acid Amplification test (NAAT)performed on the
[employer] platform.
CT abdomen pelvis without contrast-06/12/2024-
Bibasilar subsegmental atelectasis, left greater than right. Left lower lobe pneumonia cannot be excluded.
Small pericardial effusion.
No findings to suggest urinary tract calculus or dilatation bilaterally. Minor bilateral perinephric stranding, nonspecific. Evaluation for renal infection such as pyelonephritis markedly limited without intravenous contrast.
Virtually completely empty urinary bladder containing Rick catheter and air. Evaluation for urinary bladder infection markedly limited due to incomplete distention, Rick catheter, air and lack of excreted contrast.
Stable moderate L3 vertebral compression fracture, chronic.
[2024-06-13] MEDS: DULCOLAX 10 MG RECTAL (12:53)
[2024-06-13 12:55] VITALS: BP 113/65; PULSE 95; O2SAT 98
--- NOTE | 2024-06-13 13:15 | PN.CDI ---
CDI
- -
CDI:
Physician Documentation Request
Admit Date: 06/10/24 19:11
Dear Doctor Phil,
Clinical Indicators:
Patient admitted with CAUTI; PMH includes Parkinson's disease/dementia.
06/11 PN, '..noted lethargic for past few days...and complained of chest pain with cough.'
06/11 ST note, 'Signs concerning for aspiration noted with consecutive drinking of thin liquids.'
06/12 PN, 'bibasilar atelectasis possible left lower lobe pna also noted on CXR...current abx already covers if PNA is true)'
06/12 ID PN, 'CXR possible retrocardiac infiltrate - possible aspiration - meropenem will be more than adequate coverage'.
Based on the above, could you clarify in the Progress Notes further specificity regarding the known, suspected or likely type of suspected pneumonia you are treating (recognizing the specific organism may not be known)?
Examples
Aspiration Pneumonia, POA
Other Type - specify known or suspected type, POA
Pneumonia ruled out; atelectasis only
Unable to determine
Use of terms such as suspected, likely, concern for, or probable (associated with a specific diagnosis that is being evaluated, monitored, or treated as if it exists) are acceptable and can be coded in the inpatient setting, when documented at the
time of discharge.
Thank you,
Ann Virgen RN BSN
CDI Specialist
available via tiger text
Please use your independent medical judgment in providing your response.
[2024-06-13 15:00] VITALS: BP 146/80
--- NOTE | 2024-06-13 15:17 | CM ---
Chart reviewed and manager of case spoke with patient and patient's physician and patient's physician would like patient evaluated for [facility], physiatry has been consulted, and manager of case will await their recommendation, referral sent to
[facility] at [facility].
Plan; Await determination and recommendation from physiatry, referral sent to [facility] at [facility].
[2024-06-13] MEDS: LOVENOX 40 MG SC (17:13)
[2024-06-13] MEDS: SINEMET CR 25-100 (EXTENDED RELEASE) 1 TABLET PO (20:55)
[2024-06-13 23:50] VITALS: BP 138/70
[2024-06-14] MEDS: MERREM 500 MG IV ×4 (06:06→23:03)
[2024-06-14] MEDS: STERILE WATER FOR INJECTION 10 ML IV ×4 (06:07→23:03)
[2024-06-14 06:45] LABS: Hematocrit 33.6 % (39.0-52.0); Hemoglobin 11.8 g/dL (13.0-18.0); Mean Corp Hgb Conc. 35.1 g/dL (33.0-37.0); Mean Corpuscular Hgb 34.1 pg (27.0-31.0); Mean Corpuscular Volume 97.1 fL (80.0-94.0); Mean Platelet Volume 8.8 fL (7.4-10.4); Platelet Count 197 10^3/uL (130-400); Red Blood Cell Count 3.46 10^6/uL (4.70-6.10); Red Cell Dist. Width 12.6 % (11.5-14.5); White Blood Cell Count 7.1 10^3/uL (4.8-10.8)
[2024-06-14 06:56] LABS: Blood Urea Nitrogen 19 mg/dl (9-20); Calcium 8.5 mg/dl (8.4-10.2); Carbon Dioxide 27 mmol/L (22-30); Chloride 103 mmol/L (98-107); Estimated Creatinine Clearance 81 ml/min; Glucose 84 mg/dl (70-99); Magnesium 1.8 mg/dl (1.6-2.3); Phosphorus 2.6 mg/dl (2.5-4.5); Sodium 138 mmol/L (135-145); eGFR > 60.00
[2024-06-14 07:00] VITALS: BP 152/80
--- NOTE | 2024-06-14 07:48 | W.PN.HOSP.TC ---
Today's Communication/Plan
-
cont abx
ST/PT/OT
Laxatives converted to prn
Assessment / Plan
Assessment / Plan
Physical Exam
General: Well Developed, Well Nourished and No Apparent Distress
HEENT: NormoCephalic, Moist mucous membranes and Atraumatic
Respiratory: Clear
Cardiac: S1/S2 and Regular Rhythm; No Murmur or Rub
GI: Soft, Non Tender, Non Distended and Normal Bowel Sounds; No Organomegaly
Genito-urinary: Rick
Musculoskeletal: No Clubbing, No Cyanosis, No edema, some rigidity upper ext's noted
Neuro: Awake alert minimal speech but fluent coherent when speaking
Psych: Calm
84M Dementia, MDS, Parkinson's, BPH chronic Rick, chronic UTIs p/w concerns AMS. History obtained from . Patient was noted lethargic for past few days, sleeping more than usual, noted very weak. Patient was started on Cipro at [facility].
Admitted last month with UTI. he was discharged to [facility]. Recurrent UTI, Rick was exchanged in ED, started on meropenem, admitted for further management treatment.
#catheter associated UTI
-failed out patient therapy
-Urine culture from () with ESBL
-iv Merrem continued
-ID consult appreciated planned 14 day course IV abx midline placed
-catheter was changed in ER.
CT abd/pelvis appreciated
-bibasilar atelectasis possible left lower lobe pna also noted on CXR (incentive spirometer ordered, current abx already covers if PNA is true- possible aspiration pna present on admission)
-no urinary tract calculus or dilatation
-stable moderate L3 compression fracture chronic
# Dementia
# Parkinson's disease
#Dysphagia
#Acute Metabolic Encephalopathy
-memantine continued
-carbidopa continued
-ST eval appreciated pureed diet
-PT/OT appreciated SNF rehab
-PMR eval requested for possible benefit Acute Rehab, decompensated Parkinson
# History of stroke
# Ambulatory dysfunction
cont PT/OT daily if possible
# Valvular disease
05/19/24 echo w/ mod-sev , mod AR
# Chronic indwelling Rick
# h/o BPH
Chronic Rick was changed in ED on admission
Maintain
# HLD
-statin
# Essential HTN
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
#Constipation
once bisacodyl suppository 06/13 constipation since resolved
laxatives converted from scheduled to prn
DVT ppx: Lovenox SQ
Full code
discussed with patient, patient's daughter Emerald, patient's Cydney, and grandson Shravan
I spent a total of 35 minutes with the patient or on the floor. More than 50% of this time involved counseling and coordination of care.
Anticipated Discharge: 24 - 48 hours
Subjective/Interval History
-
Date of Service: June 14, 2024
No acute distress. appears comfortable. constipation resolved.
Objective Data
-
Labs:
Laboratory Results
06/14/24
06:28
WBC 7.1
Hgb 11.8 L
Hct 33.6 L
Plt Count 197
Sodium 138
Potassium 4.0
Chloride 103
Carbon Dioxide 27
BUN 19
Creatinine 0.8
Glucose 84
Calcium 8.5
Vital Signs:
Vital Signs
Temp Pulse Resp BP Pulse Ox
98.2 F 88 18 138/70 98
06/13/24 23:50 06/13/24 23:50 06/13/24 23:50 06/13/24 23:50 06/13/24 23:50
I&O
06/13/24 06/14/24 06/15/24
06:59 06:59 06:59
Intake Total 1726 / 1726 600 / 600
Output Total 1175 / 1175 1600 / 1600
Balance 551 / 551 -1000 / -1000
[2024-06-14] MEDS: LIPITOR 20 MG PO (08:59)
[2024-06-14] MEDS: ZOVIRAX 800 MG PO ×2 (08:59→19:50)
[2024-06-14] MEDS: NAMENDA 10 MG PO ×2 (08:59→19:51)
[2024-06-14] MEDS: SINEMET 25-100 1 TABLET PO ×3 (08:59→19:50)
[2024-06-14] MEDS: VITAMIN B-12 1000 MCG PO (08:59)
[2024-06-14] MEDS: DESENEX/MITRAZOL/ZEASORB 1 APPLIC TOPICAL ×2 (09:00→19:50)
[2024-06-14] MEDS: MIRALAX PO (09:04)
[2024-06-14] MEDS: SENOKOT-S PO ×2 (09:05→19:51)
[2024-06-14] MEDS: EXELON PATCH 4.6 MG TRANSDERM (10:26)
[2024-06-14 15:00] VITALS: BP 126/68
[2024-06-14] MEDS: LOVENOX 40 MG SC (17:54)
[2024-06-14] MEDS: SINEMET CR 25-100 (EXTENDED RELEASE) 1 TABLET PO (21:36)
[2024-06-15] MEDS: MERREM 500 MG IV ×4 (05:07→22:59)
[2024-06-15] MEDS: STERILE WATER FOR INJECTION 10 ML IV ×4 (05:07→22:59)
--- NOTE | 2024-06-15 07:14 | W.PN.HOSP.TC ---
Today's Communication/Plan
-
cont abx
ST/PT/OT
pending PMR eval
discharge planning
Assessment / Plan
Assessment / Plan
Physical Exam
General: Well Developed, Well Nourished and No Apparent Distress
HEENT: NormoCephalic, Moist mucous membranes and Atraumatic
Respiratory: Clear
Cardiac: S1/S2 and Regular Rhythm; No Murmur or Rub
GI: Soft, Non Tender, Non Distended and Normal Bowel Sounds; No Organomegaly
Genito-urinary: Rick
Musculoskeletal: No Clubbing, No Cyanosis, No edema, some rigidity upper ext's noted
Neuro: Awake alert minimal speech but fluent coherent when speaking
Psych: Calm
84M Dementia, MDS, Parkinson's, BPH chronic Rick, chronic UTIs p/w concerns AMS. History obtained from . Patient was noted lethargic for past few days, sleeping more than usual, noted very weak. Patient was started on Cipro at [facility].
Admitted last month with UTI. he was discharged to [facility]. Recurrent UTI, Rick was exchanged in ED, started on meropenem, admitted for further management treatment.
#catheter associated UTI
-failed out patient therapy
-Urine culture from () with ESBL
-iv Merrem continued
-ID consult appreciated planned 14 day course IV abx midline placed
-catheter was changed in ER.
CT abd/pelvis appreciated
-bibasilar atelectasis possible left lower lobe pna also noted on CXR (incentive spirometer ordered, current abx already covers if PNA is true- possible aspiration pna present on admission)
-no urinary tract calculus or dilatation
-stable moderate L3 compression fracture chronic
# Dementia
# Parkinson's disease
#Dysphagia
#Acute Metabolic Encephalopathy
-memantine continued
-carbidopa continued
-ST eval appreciated pureed diet
-PT/OT appreciated SNF rehab
-PMR eval requested for possible benefit Acute Rehab, decompensated Parkinson
# History of stroke
# Ambulatory dysfunction
cont PT/OT daily if possible
# Valvular disease
05/19/24 echo w/ mod-sev , mod AR
# Chronic indwelling Rick
# h/o BPH
Chronic Rick was changed in ED on admission
Maintain
# HLD
-statin
# Essential HTN
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
#Constipation
once bisacodyl suppository 06/13 constipation since resolved
laxatives converted from scheduled to prn
DVT ppx: Lovenox SQ
Full code
discussed with patient and patient's daughter Emerald
I spent a total of 35 minutes with the patient or on the floor. More than 50% of this time involved counseling and coordination of care.
Anticipated Discharge: 24 - 48 hours
Subjective/Interval History
-
Date of Service: June 15, 2024
Overall appears improved, more cheerful alert interactive. Daughter Emerald at bedside all notes improvement, reporting patient was able to stand and feed himself (had required significant assist prior).
Objective Data
-
Vital Signs:
Vital Signs
Temp Pulse Resp BP Pulse Ox
98.3 F 90 16 126/68 95
06/14/24 15:00 06/14/24 15:00 06/14/24 15:00 06/14/24 15:00 06/14/24 19:15
I&O
06/14/24 06/15/24 06/16/24
06:59 06:59 06:59
Intake Total 600 / 600 540 / 540
Output Total 1600 / 1600 2250 / 2250
Balance -1000 / -1000 -1710 / -1710
[2024-06-15 08:14] VITALS: BP 144/79
[2024-06-15] MEDS: LIPITOR 20 MG PO (08:31)
[2024-06-15] MEDS: SINEMET 25-100 1 TABLET PO ×3 (08:31→19:27)
[2024-06-15] MEDS: NAMENDA 10 MG PO ×2 (08:31→19:27)
[2024-06-15] MEDS: DESENEX/MITRAZOL/ZEASORB 1 APPLIC TOPICAL ×2 (08:31→19:26)
[2024-06-15] MEDS: ZOVIRAX 800 MG PO ×2 (08:31→19:27)
[2024-06-15] MEDS: VITAMIN B-12 1000 MCG PO (08:31)
[2024-06-15] MEDS: EXELON PATCH 4.6 MG TRANSDERM (11:37)
[2024-06-15 16:07] VITALS: BP 125/68
[2024-06-15] MEDS: LOVENOX 40 MG SC (17:43)
[2024-06-15] MEDS: SINEMET CR 25-100 (EXTENDED RELEASE) 1 TABLET PO (21:02)
[2024-06-15 23:19] VITALS: BP 132/74
[2024-06-16] MEDS: STERILE WATER FOR INJECTION 10 ML IV ×4 (05:09→23:24)
[2024-06-16] MEDS: MERREM 500 MG IV ×4 (05:09→23:24)
[2024-06-16 05:41] LABS: Hematocrit 34.6 % (39.0-52.0); Hemoglobin 11.9 g/dL (13.0-18.0); Mean Corp Hgb Conc. 34.4 g/dL (33.0-37.0); Mean Corpuscular Hgb 33.7 pg (27.0-31.0); Mean Platelet Volume 9.1 fL (7.4-10.4); Platelet Count 219 10^3/uL (130-400); Red Blood Cell Count 3.53 10^6/uL (4.70-6.10); Red Cell Dist. Width 12.6 % (11.5-14.5); White Blood Cell Count 6.4 10^3/uL (4.8-10.8)
[2024-06-16 06:12] LABS: Blood Urea Nitrogen 19 mg/dl (9-20); Calcium 8.7 mg/dl (8.4-10.2); Carbon Dioxide 29 mmol/L (22-30); Chloride 99 mmol/L (98-107); Estimated Creatinine Clearance 81 ml/min; Glucose 85 mg/dl (70-99); Magnesium 1.9 mg/dl (1.6-2.3); Phosphorus 2.8 mg/dl (2.5-4.5); Potassium 4.4 mmol/L (3.5-5.1); Sodium 135 mmol/L (135-145); eGFR > 60.00
[2024-06-16 07:00] VITALS: BP 152/78
[2024-06-16] MEDS: ZOVIRAX 800 MG PO ×2 (09:00→19:56)
[2024-06-16] MEDS: VITAMIN B-12 1000 MCG PO (09:00)
[2024-06-16] MEDS: LIPITOR 20 MG PO (09:00)
[2024-06-16] MEDS: NAMENDA 10 MG PO ×2 (09:00→19:56)
[2024-06-16] MEDS: SINEMET 25-100 1 TABLET PO ×3 (09:00→19:56)
[2024-06-16] MEDS: DESENEX/MITRAZOL/ZEASORB 1 APPLIC TOPICAL ×2 (09:01→19:56)
[2024-06-16] MEDS: EXELON PATCH 4.6 MG TRANSDERM (09:02)
[2024-06-16 09:40] VITALS: BP 129/68; PULSE 93; O2SAT 95
[2024-06-16 10:06] VITALS: BP 129/68; PULSE 93; O2SAT 95
--- NOTE | 2024-06-16 10:58 | W.PN.ID1 ---
Date of Service
Date of Service: June 16, 2024
Today's Communication
- continue meropenem - plan 14 day course 06/10-06/23
- midline in place
ID service will no longer actively follow this patient please recall for further questions
Assessment / Plan
CAUTI
BPH
MDS s/p SCT 2008
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
- harrison replaced this admission
- CT a/p without contrast
- continue meropenem - plan 14 day course 06/10-06/23 - script given to transplant case manager
- midline in place
ID service will no longer actively follow this patient please recall for further questions
Chief Complaint
-: UTI
Subjective / Review of Systems
afebrile
bp stable
no events over the weekend
Vital Signs / Physical Exam
Vital Signs
Vital Signs
Temp Pulse Resp BP Pulse Ox
98.2 F 85 18 132/74 98
06/15/24 23:19 06/15/24 23:19 06/15/24 23:19 06/15/24 23:19 06/15/24 23:19
Physical Exam
Constitutional: No Acute Distress
Cardiovascular: Regular Rate
Pulmonary: Symmetric and Non Labored
Gastrointestinal: Non Distended
Skin: Dry; Negative Rash or Jaundice
Objective Data
Lab Data
Lab Results
06/16/24 05:05
06/16/24 05:05
Estimated Creat Clear 81 ml/min 06/16/24 05:05
Total Bilirubin 0.8 mg/dl (0.2-1.3) 06/10/24 15:17
AST 19 U/L (17-59) 06/10/24 15:17
ALT 13 U/L (0-50) 06/10/24 15:17
Alkaline Phosphatase 92 U/L (38-126) 06/10/24 15:17
Most recent labs reviewed.
Micro Results:
06/10/24 15:17 Urine Culture - Final
Urine Escherichia coli - ESBL
06/10/24 22:30 MRSA Screen - Final
Nose No Methicillin Resistant Staphylococcus aureus isolated.
06/10/24 17:07 Influenza Types A & B (NADEGE) - Final
Nasal Swab Negative for Influenza A & B, NAAT
Negative results must be combined with clinical observations
and patient history.
Nucleic Acid Amplification test (NAAT)performed on the
[employer] platform.
CT abdomen pelvis without contrast-06/12/2024-
Bibasilar subsegmental atelectasis, left greater than right. Left lower lobe pneumonia cannot be excluded.
Small pericardial effusion.
No findings to suggest urinary tract calculus or dilatation bilaterally. Minor bilateral perinephric stranding, nonspecific. Evaluation for renal infection such as pyelonephritis markedly limited without intravenous contrast.
Virtually completely empty urinary bladder containing Harrison catheter and air. Evaluation for urinary bladder infection markedly limited due to incomplete distention, Harrison catheter, air and lack of excreted contrast.
Stable moderate L3 vertebral compression fracture, chronic.
--- NOTE | 2024-06-16 14:16 | W.PN.HOSP.TC ---
Today's Communication/Plan
-
continue Merrem per ID
DC planning to rehab
Assessment / Plan
Assessment / Plan
84M Dementia, MDS, Parkinson's, BPH chronic Rick, chronic UTIs p/w concerns AMS. History obtained from . Patient was noted lethargic for past few days, sleeping more than usual, noted very weak. Patient was started on Cipro at [facility].
Admitted last month with UTI. he was discharged to [facility]. Recurrent UTI, Rick was exchanged in ED, started on meropenem, admitted for further management treatment.
Assessment:
CAUTI - POA
- failed OP therapy
- culture with ESBL
- on Merrem until 06/23 per ID; via [facility]line
- Rick replaced this admission
Dementia
Parkinson's disease
Dysphagia
Acute Metabolic Encephalopathy from UTI
- memantine continued
- carbidopa continued
- ST eval appreciated pureed diet
- PT/OT appreciated SNF rehab
- PMR eval requested for possible benefit Acute Rehab, decompensated Parkinson
History of stroke
Ambulatory dysfunction
- cont PT/OT daily if possible
Valvular disease
- 05/19/24 echo w/ mod-sev , mod AR
Chronic indwelling Rick
h/o BPH
- Chronic Rick was changed in ED on admission
- Maintain
HLD
- statin
Essential HTN
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
Constipation
- once bisacodyl suppository 06/13 constipation since resolved
- laxatives converted from scheduled to prn
DVT ppx: Lovenox
Code: Full
Anticipated Discharge: 24 - 48 hours
Subjective/Interval History
-
Date of Service: June 16, 2024
no overnight events
Objective Data
-
Labs:
Laboratory Results
06/16/24
05:05
WBC 6.4
Hgb 11.9 L
Hct 34.6 L
Plt Count 219
Sodium 135
Potassium 4.4
Chloride 99
Carbon Dioxide 29
BUN 19
Creatinine 0.8
Glucose 85
Calcium 8.7
Vital Signs:
Vital Signs
Temp Pulse Resp BP Pulse Ox
98.1 F 87 18 152/78 97
06/16/24 07:00 06/16/24 07:00 06/16/24 07:00 06/16/24 07:00 06/16/24 07:00
I&O
06/15/24 06/16/24 06/17/24
06:59 06:59 06:59
Intake Total 540 / 540 840 / 840
Output Total 2250 / 2250 2850 / 2850
Balance -1710 / -1710 -2009
Physical Exam
-
General: No Apparent Distress
HEENT: Normocephalic and Atraumatic
Respiratory: Clear to Auscultation; Negative Wheezes
Cardiac: Regular Rhythm and S1/S2
GI: Soft and Nontender
Genito-urinary: No Costovertebral Tender
Musculoskeletal: No Edema
Neuro: AO x 3
Psych: Calm
Data Reviewed
-
Total Time Spent with Patient (in minutes): 41
Labs: Labs Reviewed by me
[2024-06-16 15:00] VITALS: BP 134/68
--- NOTE | 2024-06-16 15:07 | CM ---
assurance manager insurance reviewed patient's chart and met with patient and patient's spouse today, patient was reviewed by physiatry and patient has been declined acute rehab at [facility], director case management reviewed with patient and spouse and plan will be for skilled
placement at [facility], script received for 2 weeks of IV ABX from ID physician.
Plan; Possible skilled placement at [facility] when stable.
[2024-06-16] MEDS: LOVENOX 40 MG SC (17:52)
[2024-06-16] MEDS: SINEMET CR 25-100 (EXTENDED RELEASE) 1 TABLET PO (23:18)
[2024-06-16 23:21] VITALS: BP 124/66
[2024-06-17] MEDS: STERILE WATER FOR INJECTION 10 ML IV ×4 (05:23→23:25)
[2024-06-17] MEDS: MERREM 500 MG IV ×4 (05:23→23:24)
[2024-06-17 07:40] VITALS: BP 165/81
[2024-06-17] MEDS: DESENEX/MITRAZOL/ZEASORB 1 APPLIC TOPICAL ×2 (08:40→21:54)
[2024-06-17] MEDS: EXELON PATCH 4.6 MG TRANSDERM (08:41)
[2024-06-17] MEDS: LIPITOR 20 MG PO (08:43)
[2024-06-17] MEDS: SINEMET 25-100 1 TABLET PO ×3 (08:43→21:52)
[2024-06-17] MEDS: VITAMIN B-12 1000 MCG PO (08:43)
[2024-06-17] MEDS: ZOVIRAX 800 MG PO ×2 (08:43→21:52)
[2024-06-17] MEDS: NAMENDA 10 MG PO ×2 (08:43→21:52)
--- NOTE | 2024-06-17 09:00 | CON.MD ---
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 adjust medications as needed.�
Skin: monitor for pressure sores/rashes/lesions.�
Pain: acetaminophen as needed.�
Bowel: Miralax and Senokot-S, PRN bisacodyl.�
Bladder: Has Harrison
GI Prophylaxis:recommend Pantoprazole�
DVT Prophylaxis: Mechanical and Lovenox 40 mg sc
Pulmonary: Incentive spirometry�
Safety: Continue to reinforce assistance with all transfers.�
Code Status:� Full code
Dispo�(date/plan/equipment needs): Home with family care.� Social history reviewed.�
Functional and Medical Goals:�Modified Independent with ADL�s, ambulation, transfers�
Discharge Destination:�SNF
Attending Statement:
I saw and examined the patient today. Reviewed care plan with patient, therapy, nursing, and physician electrician station assistant. I agree with the above subjective and physical exam, and plan as documented by CHANDANA Hernandes with adjustments made as necessary.
�
Summary of recommendations: Patient with recurrent UTI, history of CVA assisted by home care 3 times a week prior to stay at [facility] post UTI, would benefit from SNF for continuation of PT/OT and medical management pending return back home.
Acute Metabolic Encephalopathy from UTI: continue treatment
UTI/BPH:per ID
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
- harrison replaced this admission
- continue meropenem 500mg IV q 6 hours - plan 14 day course 06/10-06/23 -
CVA: History of stroke, on statin. Not on aspirin or Plavix. PT/OT.
Bowel: Miralax and Senokot-S, PRN bisacodyl.�
GI Prophylaxis:recommend Pantoprazole�
DVT Prophylaxis: Mechanical and Lovenox 40 mg sc
Pulmonary: Incentive spirometry�
�
Thank you for allowing me to care for your patient. Please contact me with any questions or concerns.
--- NOTE | 2024-06-17 10:07 | W.PN.HOSP.TC ---
Today's Communication/Plan
-
medically stable for SNF pending bed/auth etc. d/w CM.
Assessment / Plan
Assessment / Plan
84M Dementia, MDS, Parkinson's, BPH chronic Rick, chronic UTIs p/w concerns AMS. History obtained from . Patient was noted lethargic for past few days, sleeping more than usual, noted very weak. Patient was started on Cipro at [facility].
Admitted last month with UTI. he was discharged to [facility]. Recurrent UTI, Rick was exchanged in ED, started on meropenem, admitted for further management treatment.
Assessment:
CAUTI - POA
- failed OP therapy
- culture with ESBL
- on Merrem until 06/23 per ID; via midline
- Rick replaced this admission
Dementia
Parkinson's disease
Dysphagia
Acute Metabolic Encephalopathy from UTI
- memantine continued
- carbidopa continued
- ST eval appreciated pureed diet
- PT/OT appreciated SNF rehab. Patient denied from acute rehab level
History of stroke
Ambulatory dysfunction
- cont PT/OT
Valvular disease
- 05/19/24 echo w/ mod-sev , mod AR
Chronic indwelling Rick
h/o BPH
- Chronic Rick was changed in ED on admission
- Maintain
HLD
- statin
Essential HTN
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
- Cont VICE PRESIDENT QUALITY ASSURANCE chronic Acyclovir
Constipation
- once bisacodyl suppository 06/13 constipation since resolved
- laxatives converted from scheduled to prn
DVT ppx: Lovenox
Code: Full
Anticipated Discharge: Within 24 hours
Subjective/Interval History
-
Date of Service: June 17, 2024
denies any new complaints presently
Objective Data
-
Vital Signs:
Vital Signs
Temp Pulse Resp BP Pulse Ox
98 F 76 18 165/81 99
06/17/24 07:40 06/17/24 07:40 06/17/24 07:40 06/17/24 07:40 06/17/24 07:40
I&O
06/16/24 06/17/24 06/18/24
06:59 06:59 06:59
Intake Total 840 / 840 1080 / 1080
Output Total 2850 / 2850 3300 / 3300
Balance -2009 / -2009 -2220 / -2220
Physical Exam
-
General: No Apparent Distress
HEENT: Normocephalic and Atraumatic
Respiratory: Negative Wheezes
Cardiac: Regular Rhythm and S1/S2
GI: Soft
Genito-urinary: No Costovertebral Tender
Neuro: AO x 3
Psych: Calm
Data Reviewed
-
Total Time Spent with Patient (in minutes): 42
Labs: Labs Reviewed by me
--- NOTE | 2024-06-17 12:57 | CM ---
Carlos has denied patient and per admissions at [facility] they have to review patient, per admission they feel patient is terminal clerk not short term rehab appropriate. Waiting on a final decision from [facility]
Plan; Still waiting on final decision from [facility] admissions.
[2024-06-17 15:42] VITALS: BP 149/62
[2024-06-17] MEDS: LOVENOX 40 MG SC (17:21)
--- NOTE | 2024-06-17 17:33 | PTOTSP ---
ST Follow-Up
Pt continues to present with clinical signs consistent with mild to moderate oropharyngeal dysphagia.
Recommendations:
- UPGRADE diet to MINCED MOIST solids and continue with THIN LIQUIDS with no straws.
- Continue with meds crushed in puree.
- Aspiration precautions: Fully awake, alert, and upright for PO intake; full supervision - prompt pt to take small bites/sips and to eat/drink slowly.
- RADIO JOURNALIST to f/u re: diet tolerance of upgrades, to continue re-assessment for candidacy for solid upgrades, and to determine if pt would benefit from an instrumental swallow study.
[2024-06-17] MEDS: SINEMET CR 25-100 (EXTENDED RELEASE) 1 TABLET PO (21:52)
[2024-06-17 23:41] VITALS: BP 156/79
[2024-06-18] MEDS: STERILE WATER FOR INJECTION 10 ML IV ×4 (05:18→23:12)
[2024-06-18] MEDS: MERREM 500 MG IV ×4 (05:19→23:12)
[2024-06-18 07:45] VITALS: BP 138/75
[2024-06-18] MEDS: EXELON PATCH 4.6 MG TRANSDERM (07:53)
[2024-06-18] MEDS: DESENEX/MITRAZOL/ZEASORB 1 APPLIC TOPICAL ×2 (07:53→20:17)
[2024-06-18] MEDS: NAMENDA 10 MG PO ×2 (07:54→20:17)
[2024-06-18] MEDS: ZOVIRAX 800 MG PO ×2 (07:54→20:17)
[2024-06-18] MEDS: LIPITOR 20 MG PO (07:54)
[2024-06-18] MEDS: SINEMET 25-100 1 TABLET PO ×3 (07:54→20:17)
[2024-06-18] MEDS: VITAMIN B-12 1000 MCG PO (07:55)
--- NOTE | 2024-06-18 12:52 | W.PN.HOSP.TC ---
Today's Communication/Plan
-
await SNF bed
Assessment / Plan
Assessment / Plan
84M Dementia, MDS, Parkinson's, BPH chronic Rick, chronic UTIs p/w concerns AMS. History obtained from . Patient was noted lethargic for past few days, sleeping more than usual, noted very weak. Patient was started on Cipro at [facility].
Admitted last month with UTI. he was discharged to [facility]. Recurrent UTI, Rick was exchanged in ED, started on meropenem, admitted for further management treatment.
Assessment:
CAUTI - POA
- failed OP therapy
- culture with ESBL
- on Merrem until 06/23 per ID; via midline
- Rick replaced this admission
Dementia
Parkinson's disease
Dysphagia
Acute Metabolic Encephalopathy from UTI
- memantine continued
- carbidopa continued
- ST eval appreciated pureed diet
- PT/OT appreciated SNF rehab. Patient denied from acute rehab level
History of stroke
Ambulatory dysfunction
- cont PT/OT
Valvular disease
- 05/19/24 echo w/ mod-sev , mod AR
Chronic indwelling Rick
h/o BPH
- Chronic Rick was changed in ED on admission
- Maintain
HLD
- statin
Essential HTN
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
- Cont PROMOTIONAL MARKETING AGENT chronic Acyclovir
Constipation
- once bisacodyl suppository 06/13 constipation since resolved
- laxatives converted from scheduled to prn
DVT ppx: Lovenox
Code: Full
Anticipated Discharge: Within 24 hours
Subjective/Interval History
-
Date of Service: June 18, 2024
no new complaints
Objective Data
-
Vital Signs:
Vital Signs
Temp Pulse Resp BP Pulse Ox
97.4 F 79 18 138/75 93
06/18/24 07:45 06/18/24 07:45 06/18/24 07:45 06/18/24 07:45 06/18/24 07:45
I&O
06/17/24 06/18/24 06/19/24
06:59 06:59 06:59
Intake Total 1080 / 1080 840 / 840
Output Total 3300 / 3300 2700 / 2700
Balance -2220 / -2220 -1860 / -1860
Physical Exam
-
General: No Apparent Distress
HEENT: Normocephalic and Atraumatic
Respiratory: Negative Wheezes
Cardiac: Regular Rhythm and S1/S2
GI: Soft and Nontender
Genito-urinary: No Costovertebral Tender
Neuro: AO x 3
Hematologic / Lymphatic: No Lymphadenopathy
Psych: Calm
Data Reviewed
-
Total Time Spent with Patient (in minutes): 42
Labs: Labs Reviewed by me
[2024-06-18 13:51] VITALS: BP 120/63; PULSE 87; O2SAT 99
--- NOTE | 2024-06-18 14:05 | CM ---
retail advertising sales manager spoke with admissions at [facility] and per admissions they dud not receive a call from family regarding a bed at [facility], referral sent to [facility].
Plan; Skilled placement.
[2024-06-18 15:23] VITALS: BP 142/70
[2024-06-18] MEDS: LOVENOX 40 MG SC (16:57)
[2024-06-18] MEDS: SINEMET CR 25-100 (EXTENDED RELEASE) 1 TABLET PO (20:18)
[2024-06-18 22:59] VITALS: BP 109/73
[2024-06-19 05:15] LABS: Hematocrit 33.9 % (39.0-52.0); Hemoglobin 11.6 g/dL (13.0-18.0); Mean Corp Hgb Conc. 34.2 g/dL (33.0-37.0); Mean Corpuscular Volume 96.6 fL (80.0-94.0); Mean Platelet Volume 8.9 fL (7.4-10.4); Platelet Count 218 10^3/uL (130-400); Red Blood Cell Count 3.51 10^6/uL (4.70-6.10); Red Cell Dist. Width 12.7 % (11.5-14.5); White Blood Cell Count 7.2 10^3/uL (4.8-10.8)
[2024-06-19] MEDS: STERILE WATER FOR INJECTION 10 ML IV ×4 (05:55→23:32)
[2024-06-19] MEDS: MERREM 500 MG IV ×4 (05:55→23:31)
[2024-06-19 08:12] VITALS: BP 125/67
[2024-06-19] MEDS: NAMENDA 10 MG PO ×2 (08:15→20:30)
[2024-06-19] MEDS: DESENEX/MITRAZOL/ZEASORB 1 APPLIC TOPICAL ×2 (08:15→20:29)
[2024-06-19] MEDS: ZOVIRAX 800 MG PO ×2 (08:16→20:30)
[2024-06-19] MEDS: SINEMET 25-100 1 TABLET PO ×3 (08:16→20:30)
[2024-06-19] MEDS: LIPITOR 20 MG PO (08:16)
[2024-06-19] MEDS: VITAMIN B-12 1000 MCG PO (08:16)
[2024-06-19] MEDS: EXELON PATCH 4.6 MG TRANSDERM (08:16)
--- NOTE | 2024-06-19 12:53 | W.PN.HOSP.TC ---
Today's Communication/Plan
-
medically stable for SNF pending bed/auth etc. d/w CM.
Assessment / Plan
Assessment / Plan
84M Dementia, MDS, Parkinson's, BPH chronic Rick, chronic UTIs p/w concerns AMS. History obtained from . Patient was noted lethargic for past few days, sleeping more than usual, noted very weak. Patient was started on Cipro at [facility].
Admitted last month with UTI. he was discharged to [facility]. Recurrent UTI, Rick was exchanged in ED, started on meropenem, admitted for further management treatment.
Assessment:
CAUTI - POA
- failed OP therapy
- culture with ESBL
- on Merrem until 06/23 per ID; via midline
- Rick replaced this admission
Dementia
Parkinson's disease
Dysphagia
Acute Metabolic Encephalopathy from UTI
- memantine continued
- carbidopa continued
- ST eval appreciated pureed diet
- PT/OT appreciated SNF rehab. Patient denied from acute rehab level
History of stroke
Ambulatory dysfunction
- cont PT/OT
Valvular disease
- 05/19/24 echo w/ mod-sev , mod AR
Chronic indwelling Rick
h/o BPH
- Chronic Rick was changed in ED on admission
- Maintain
HLD
- statin
Essential HTN
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
- Cont EXCELLENCE COACH chronic Acyclovir
Constipation
- once bisacodyl suppository 06/13 constipation since resolved
- laxatives converted from scheduled to prn
DVT ppx: Lovenox
Code: Full
Anticipated Discharge: Within 24 hours
Subjective/Interval History
-
Date of Service: June 19, 2024
no overnight events
tolerating Merrem
Objective Data
-
Labs:
Laboratory Results
06/19/24
04:58
WBC 7.2
Hgb 11.6 L
Hct 33.9 L
Plt Count 218
Vital Signs:
Vital Signs
Temp Pulse Resp BP Pulse Ox
98.3 F 81 18 125/67 95
06/19/24 08:12 06/19/24 08:12 06/19/24 08:12 06/19/24 08:12 06/19/24 08:12
I&O
06/18/24 06/19/24 06/20/24
06:59 06:59 06:59
Intake Total 840 / 840 960 / 960
Output Total 2700 / 2700 2200 / 2200
Balance -1860 / -1860 -1240 / -1240
Physical Exam
-
General: No Apparent Distress
HEENT: Normocephalic and Atraumatic
Respiratory: Negative Wheezes
Cardiac: Regular Rhythm and S1/S2
GI: Soft and Nontender
Musculoskeletal: No Edema
Neuro: AO x 3
Hematologic / Lymphatic: No Lymphadenopathy
Psych: Calm
Data Reviewed
-
Total Time Spent with Patient (in minutes): 41
Labs: Labs Reviewed by me
--- NOTE | 2024-06-19 13:19 | CM ---
billiard parlor manager met with patient's daughter Emerald this morning, multiple messages left for patient's spouse, referrals sent to [facility], [facility], [facility], [facility], and [facility].
Plan; Skilled placement
[2024-06-19 16:34] VITALS: BP 126/67
[2024-06-19] MEDS: LOVENOX 40 MG SC (17:09)
[2024-06-19] MEDS: SINEMET CR 25-100 (EXTENDED RELEASE) 1 TABLET PO (20:30)
[2024-06-19 23:48] VITALS: BP 136/70
[2024-06-20] MEDS: MERREM 500 MG IV ×4 (05:36→23:54)
[2024-06-20] MEDS: STERILE WATER FOR INJECTION 10 ML IV ×4 (05:36→23:55)
[2024-06-20 07:00] VITALS: BP 142/71
[2024-06-20] MEDS: VITAMIN B-12 1000 MCG PO (08:03)
[2024-06-20] MEDS: NAMENDA 10 MG PO ×2 (08:03→21:28)
[2024-06-20] MEDS: LIPITOR 20 MG PO (08:03)
[2024-06-20] MEDS: ZOVIRAX 800 MG PO ×2 (08:03→21:28)
[2024-06-20] MEDS: SINEMET 25-100 1 TABLET PO ×3 (08:03→21:28)
[2024-06-20] MEDS: EXELON PATCH 4.6 MG TRANSDERM (08:04)
[2024-06-20] MEDS: DESENEX/MITRAZOL/ZEASORB 1 APPLIC TOPICAL ×2 (08:04→21:29)
[2024-06-20 09:51] VITALS: BP 127/67
--- NOTE | 2024-06-20 10:27 | W.PN.HOSP.TC ---
Today's Communication/Plan
-
medically stable for SNF pending bed/auth etc. d/w CM.
Assessment / Plan
Assessment / Plan
84M Dementia, MDS, Parkinson's, BPH chronic Rick, chronic UTIs p/w concerns AMS. History obtained from . Patient was noted lethargic for past few days, sleeping more than usual, noted very weak. Patient was started on Cipro at [facility].
Admitted last month with UTI. he was discharged to [facility]. Recurrent UTI, Rick was exchanged in ED, started on meropenem, admitted for further management treatment.
Assessment:
CAUTI - POA
- failed OP therapy
- culture with ESBL
- on Merrem until 06/23 per ID; via midline
- Rick replaced this admission
Dementia
Parkinson's disease
Dysphagia
Acute Metabolic Encephalopathy from UTI
- memantine continued
- carbidopa continued
- ST eval appreciated pureed diet
- PT/OT appreciated SNF rehab. Patient denied from acute rehab level
History of stroke
Ambulatory dysfunction
- cont PT/OT
Valvular disease
- 05/19/24 echo w/ mod-sev , mod AR
Chronic indwelling Rick
h/o BPH
- Chronic Rick was changed in ED on admission
- Maintain
HLD
- statin
Essential HTN
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
- Cont NECKTIE TURNER chronic Acyclovir
Constipation
- once bisacodyl suppository 06/13 constipation since resolved
- laxatives converted from scheduled to prn
DVT ppx: Lovenox
Code: Full
Anticipated Discharge: Within 24 hours
Subjective/Interval History
-
Date of Service: June 20, 2024
no new complaints, resting comfortably in bed
Objective Data
-
Vital Signs:
Vital Signs
Temp Pulse Resp BP Pulse Ox
97.6 F 76 18 142/71 98
06/20/24 07:00 06/20/24 07:00 06/20/24 07:00 06/20/24 07:00 06/20/24 07:00
I&O
06/19/24 06/20/24 06/21/24
06:59 06:59 06:59
Intake Total 960 / 960 1560 / 1560
Output Total 2200 / 2200 1650 / 1650
Balance -1240 / -1240 -90 / -90
Physical Exam
-
General: No Apparent Distress
HEENT: Normocephalic and Atraumatic
Respiratory: Negative Wheezes or Rales
Cardiac: Regular Rhythm and S1/S2
GI: Soft and Nontender
Genito-urinary: No Costovertebral Tender
Musculoskeletal: No Edema
Neuro: AO x 3
Hematologic / Lymphatic: No Lymphadenopathy
Psych: Calm
Data Reviewed
-
Total Time Spent with Patient (in minutes): 42
Labs: Labs Reviewed by me
--- NOTE | 2024-06-20 14:07 | CM ---
technical product manager continues to follow with patient progress and referrals sent to [facility], [facility] in [place], [facility], and [facility], message left for admissions at [facility] still waiting on a determination.
Plan; Skilled placement, patient has been denied re admit to [facility] alternative referrals sent, none of these skilled facilities have accepted patient.
[2024-06-20 15:00] VITALS: BP 137/72
[2024-06-20] MEDS: LOVENOX 40 MG SC (17:42)
[2024-06-20] MEDS: SINEMET CR 25-100 (EXTENDED RELEASE) 1 TABLET PO (21:28)
[2024-06-20 23:25] VITALS: BP 137/79
[2024-06-20] MEDS: FLUSH (NSS) 2 FLUSH IV (23:55)
[2024-06-21] MEDS: STERILE WATER FOR INJECTION 10 ML IV ×2 (06:22→12:48)
[2024-06-21] MEDS: FLUSH (NSS) 2 FLUSH IV (06:22)
[2024-06-21] MEDS: MERREM 500 MG IV ×2 (06:22→12:48)
[2024-06-21 07:00] VITALS: BP 161/86
[2024-06-21] MEDS: SINEMET 25-100 1 TABLET PO ×2 (10:19→12:49)
[2024-06-21] MEDS: EXELON PATCH 4.6 MG TRANSDERM (10:19)
[2024-06-21] MEDS: NAMENDA 10 MG PO (10:19)
[2024-06-21] MEDS: VITAMIN B-12 1000 MCG PO (10:20)
[2024-06-21] MEDS: LIPITOR 20 MG PO (10:20)
[2024-06-21] MEDS: ZOVIRAX 800 MG PO (10:20)
--- NOTE | 2024-06-21 10:41 | CM ---
Addendum entered by Rita Jhaveri 06/21/24 12:48:
Patient scheduled for ambulance transport, 5:30/6:00 p.m. seen bedside, IMM signed, provided with copy.
Addendum entered by Rita Jhaveri 06/21/24 12:17:
CM spoke with patients , agreeable to Count includes the [facility], patient will require ambulance transport. Luz in Admissions aware, patient on IV antibiotics until 06/23.
[facility]
Report: [phone]

Original Note:
CM reviewed chart, patient clear for discharge today. Per Admissions at [facility], can offer patient an isolation bed. CM left voicemails for patients and patients daughter, requesting return call. CM will continue to follow for all discharge
planning needs.
Plan; , [facility] can accept, awaiting return call from family.
[2024-06-21] MEDS: DESENEX/MITRAZOL/ZEASORB 1 APPLIC TOPICAL (12:46)
--- NOTE | 2024-06-21 13:36 | W.PN.HOSP.TC ---
Today's Communication/Plan
-
dc to SNF
Assessment / Plan
Assessment / Plan
84M Dementia, MDS, Parkinson's, BPH chronic Rick, chronic UTIs p/w concerns AMS. History obtained from . Patient was noted lethargic for past few days, sleeping more than usual, noted very weak. Patient was started on Cipro at [facility].
Admitted last month with UTI. he was discharged to [facility]. Recurrent UTI, Rick was exchanged in ED, started on meropenem, admitted for further management treatment.
Assessment:
CAUTI - POA
- failed OP therapy
- culture with ESBL
- on Merrem until 06/23 per ID; via midline
- Rick replaced this admission
Dementia
Parkinson's disease
Dysphagia
Acute Metabolic Encephalopathy from UTI
- memantine continued
- carbidopa continued
- ST eval appreciated pureed diet
- PT/OT appreciated SNF rehab. Patient denied from acute rehab level
History of stroke
Ambulatory dysfunction
- cont PT/OT
Valvular disease
- 05/19/24 echo w/ mod-sev , mod AR
Chronic indwelling Rick
h/o BPH
- Chronic Rick was changed in ED on admission
- Maintain
HLD
- statin
Essential HTN
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
- Cont DIAGNOSTIC ASSISTANT chronic Acyclovir
Constipation
- once bisacodyl suppository 06/13 constipation since resolved
- laxatives converted from scheduled to prn
DVT ppx: Lovenox
Code: Full
More than 30 minutes spent in discharge including
Final examination of the patient
Summarizing hospital stay
Instructions for continuing care to all relevant caregivers
Preparation of discharge records, prescriptions, and referral forms
Total time spent (in minutes): 41
Anticipated Discharge: Today
Subjective/Interval History
-
Date of Service: June 21, 2024
resting comfortably
Objective Data
-
Vital Signs:
Vital Signs
Temp Pulse Resp BP Pulse Ox
97.7 F 84 16 161/86 96
06/21/24 07:00 06/21/24 07:00 06/21/24 07:00 06/21/24 07:00 06/21/24 07:00
I&O
06/20/24 06/21/24 06/22/24
06:59 06:59 06:59
Intake Total 1560 / 1560
Output Total 1650 / 1650 850 / 850
Balance -90 / -90 -850 / -850
Physical Exam
-
General: No Apparent Distress
HEENT: Normocephalic and Atraumatic
Respiratory: Negative Wheezes
Cardiac: Regular Rhythm and S1/S2
GI: Soft and Nontender
Musculoskeletal: No Edema
Neuro: AO x 3
Hematologic / Lymphatic: No Lymphadenopathy
Psych: Calm
Data Reviewed
-
Total Time Spent with Patient (in minutes): 41
Labs: Labs Reviewed by me
--- NOTE | 2024-06-21 13:47 | W.DS.TRANS ---
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
-
Discharge Instructions:
Discharge Diagnosis/Procedures ESBL CAUTI
Diet Other diet
Additional Diets IDDSI puree 4 - thin liquids
Activity As tolerated
Other Services OT,PT
Instructions:
Stand-Alone Forms:
Changes to Home Medications: No
Discharge Medications:
DC Medications w/original date entered in [employer]
acyclovir 800 mg tablet 800 mg PO BID Infection 10/11/20
atorvastatin 20 mg tablet 20 mg PO DAILY High cholesterol 10/11/20
memantine 10 mg tablet 10 mg PO BID memory 10/11/20
multivitamin with folic acid 400 mcg tablet (Tab-A-Piedad) 1 tab PO DAILY Supplement 10/11/20
rivastigmine 4.6 mg/24 hour transdermal patch 1 patch transdermal DAILY parkinson 10/11/20
ascorbic acid (vitamin C) 500 mg tablet (Vitamin C) 500 mg PO DAILY Supplement 05/17/24
carbidopa 25 mg-levodopa 100 mg tablet 1 tab PO TID@0800,1300,2000 Neurological Condition 05/17/24
carbidopa ER 25 mg-levodopa 100 mg tablet,extended release 1 tab PO HS Neurological Condition 05/17/24
ipratropium bromide 21 mcg (0.03 %) nasal spray 2 spray intranasal BID Allergies 05/17/24
methenamine hippurate 1 gram tablet 1 g PO BID Infection 05/17/24
peg 400-propylene glycol (PF) 0.4 %-0.3 % eye drops in a dropperette (Systane (PF)) 1 drp BOTH EYES 6XD PRN dry eyes 05/17/24
cyanocobalamin (vitamin B-12) 1,000 mcg tablet 1,000 mcg PO DAILY #30 tabs 05/26/24
acetaminophen 325 mg tablet 650 mg PO Q4HPRN PRN mild pain/fever>100 06/10/24
bisacodyl 10 mg rectal suppository (Dulcolax (bisacodyl)) 10 mg [place] DAILYPRN PRN if mom is ineffective/give on day 5 of no bm 06/10/24
magnesium hydroxide 400 mg/5 mL oral suspension (Milk of Magnesia) 30 ml PO DAILYPRN PRN if no bm on day 4 06/10/24
sodium phosphates 19 gram-7 gram/118 mL enema (Fleet Enema) 118 ml [place] DAILYPRN PRN if dulcolax is ineffective/give on day 6 of no bm 06/10/24
meropenem 500 mg intravenous solution 500 mg IV Q6H #10 ea 06/21/24
Home Medication Changes
Pending Results: No
Total time spent discharging patient (in min): 41
[2024-06-21 15:00] VITALS: BP 121/68
== END 2024-06-21 18:31 | DRG 698 ==
LOC: 4 WEST ACU 19:11
PROVIDERS: Internal Medicine; Physician Assistant; Registered Nurse; Student in an Organized Health Care Education/Training Program; ADMITTING PHYSICIAN Internal Medicine; ATTENDING PHYSICIAN Internal Medicine; CONSULT PHYSICIAN Physical Medicine & Rehabilitation; CONSULT PHYSICIAN Student in an Organized Health Care Education/Training Program; EMERGENCY PHYSICIAN Emergency Medicine; FAMILY PHYSICIAN Internal Medicine Geriatric Medicine
DX: T83.511A Infection and inflammatory reaction due to indwelling urethral catheter, initial encounter (principal); G93.41 Metabolic encephalopathy; D89.811 Chronic graft-versus-host disease; Z16.12 Extended spectrum beta lactamase (ESBL) resistance; G81.94 Hemiplegia, unspecified affecting left nondominant side; I31.39 Other pericardial effusion (noninflammatory); M48.56XA Collapsed vertebra, not elsewhere classified, lumbar region, initial encounter for fracture; Z94.81 Bone marrow transplant status; Z94.84 Stem cells transplant status; D46.9 Myelodysplastic syndrome, unspecified; G20.A1 Parkinson's disease without dyskinesia, without mention of fluctuations; F02.80 Dementia in other diseases classified elsewhere, unspecified severity, without behavioral disturbance, psychotic disturbance, mood disturbance, and anxiety; I10 Essential (primary) hypertension; I35.2 Nonrheumatic aortic (valve) stenosis with insufficiency; J44.9 Chronic obstructive pulmonary disease, unspecified; N39.0 Urinary tract infection, site not specified; Y84.6 Urinary catheterization as the cause of abnormal reaction of the patient, or of later complication, without mention of misadventure at the time of the procedure; B96.20 Unspecified Escherichia coli [E. coli] as the cause of diseases classified elsewhere; D75.1 Secondary polycythemia; E78.5 Hyperlipidemia, unspecified; K59.00 Constipation, unspecified; Z90.49 Acquired absence of other specified parts of digestive tract; Z87.19 Personal history of other diseases of the digestive system; N31.9 Neuromuscular dysfunction of bladder, unspecified; N40.1 Benign prostatic hyperplasia with lower urinary tract symptoms; R33.8 Other retention of urine; R13.10 Dysphagia, unspecified; Z86.73 Personal history of transient ischemic attack (TIA), and cerebral infarction without residual deficits; Z87.440 Personal history of urinary (tract) infections; Z87.442 Personal history of urinary calculi; Z87.81 Personal history of (healed) traumatic fracture
CPT/HCPCS: 71045; 74176; 80048; 80053; 81003; 81015; 82607; 82746; 83540; 83550; 83735; 84100; 84443; 85025; 85027; 87070; 87077; 87086; 87186; 87502; 87811; 92526; 92610; 96365; 97116; 97163; 97167; 97530; 97535; 99285; J1335

== ENCOUNTER 2024-06-29 18:52 | Emergency (ER) | payer MEDICARE, OTHER, SELFPAY ==
[2024-06-29 18:56] VITALS: BP 145/76
[2024-06-29 19:00] VITALS: BP 143/74
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
[2024-06-29 20:00] VITALS: BP 152/77
[2024-06-29 21:00] VITALS: BP 152/96
--- NOTE | 2024-06-29 21:32 | EDRN ---
Patient resting comfortably at this time waiting on transport/
[2024-06-29 22:00] VITALS: BP 157/78
[2024-06-29 23:00] VITALS: BP 142/81
[2024-06-30] VITALS: BP 140/87
[2024-06-30 01:00] VITALS: BP 165/80
== END 2024-06-30 02:18 | disposition home or self-care (01) ==
LOC: EMR 18:52
PROVIDERS: EMERGENCY PHYSICIAN Emergency Medicine; FAMILY PHYSICIAN Internal Medicine
DX: Z46.6 Encounter for fitting and adjustment of urinary device (principal); F03.C0 Unspecified dementia, severe, without behavioral disturbance, psychotic disturbance, mood disturbance, and anxiety; I10 Essential (primary) hypertension; Z86.73 Personal history of transient ischemic attack (TIA), and cerebral infarction without residual deficits; Z85.6 Personal history of leukemia; Z94.81 Bone marrow transplant status; Z90.49 Acquired absence of other specified parts of digestive tract; Z86.718 Personal history of other venous thrombosis and embolism
CPT/HCPCS: 51702; 99283

== ENCOUNTER 2024-08-11 11:39 | Inpatient (IN) | payer MEDICARE, OTHER, SELFPAY ==
[2024-08-11] VITALS (55 sets, daily range): BP systolic 54–153; BP diastolic 24–86; PULSE 2–130; BMI 23.3
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
[2024-08-11 08:44] LABS: Venous Blood Gas B.E. -13.1 mmol/L (-4 to +4); Venous Blood Gas pCO2 48 mmHg (35-48); Venous Blood Gas pO2 34 mmHg (30-50)
[2024-08-11 08:49] LABS: Hematocrit 44.6 % (39.0-52.0); Hemoglobin 14.2 g/dL (13.0-18.0); Mean Corp Hgb Conc. 31.8 g/dL (33.0-37.0); Mean Corpuscular Hgb 33.6 pg (27.0-31.0); Mean Corpuscular Volume 105.7 fL (80.0-94.0); Mean Platelet Volume 8.9 fL (7.4-10.4); Platelet Count 353 10^3/uL (130-400); Red Blood Cell Count 4.22 10^6/uL (4.70-6.10); Red Cell Dist. Width 14.3 % (11.5-14.5); White Blood Cell Count 13.8 10^3/uL (4.8-10.8)
[2024-08-11 08:50] LABS: Venous Blood Gas pH 7.13 (7.32-7.43)
[2024-08-11 08:55] LABS: PT 17.4 Sec (11.4-14.6)
[2024-08-11 08:56] LABS: APTT 43.7 Sec (23.4-35.0)
[2024-08-11 09:02] LABS: COVID-19 Antigen Negative (Negative)
[2024-08-11] MEDS: NSS 500 IV ×3 (09:08→15:22)
[2024-08-11 09:17] LABS: NT-proBNP 9980 pg/ml; Troponin I 0.261 ng/ml
[2024-08-11 09:24] LABS: Blood Urea Nitrogen 57 mg/dl (9-20); Calcium 9.3 mg/dl (8.4-10.2); Carbon Dioxide 14 mmol/L (22-30); Chloride 104 mmol/L (98-107); Estimated Creatinine Clearance 19 ml/min; Glucose 129 mg/dl (70-99); Sodium 143 mmol/L (135-145); eGFR 17.82
[2024-08-11] MEDS: MAXIPIME 2000 MG IV (09:29)
[2024-08-11] MEDS: VANCOCIN 530 MG IV (09:57)
[2024-08-11 10:19] LABS: AST (SGOT) 46 U/L (17-59); Alkaline Phosphatase 104 U/L (38-126); Blood Urea Nitrogen 57 mg/dl (9-20); Calcium 9.3 mg/dl (8.4-10.2); Carbon Dioxide 13 mmol/L (22-30); Chloride 103 mmol/L (98-107); Estimated Creatinine Clearance 19 ml/min; Glucose 120 mg/dl (70-99); Potassium 4.3 mmol/L (3.5-5.1); Sodium 143 mmol/L (135-145); Total Bilirubin 0.7 mg/dl (0.2-1.3); Total Protein 7.1 g/dl (6.3-8.2)
--- NOTE | 2024-08-11 10:23 | HPS.HSE ---
Family Physician
-
Family Physician: Jeremi Lund
Chief Complaint
-
increased work of breathing
History of Present Illness
Mr. Urbano Hernandez is a 84 yo man with hx Parkinson's, MDS, BPH with chronic indwelling harrison and hx ESBL, dementia, recent admission 06/10-06/21/24 for TME 2/2 ESBL UTI discharged to SNF (discharged a few days [facility]) presents with vomiting/diarrhea
and increased work of breathing.
Patient was discharged from SNF 3 days ago and was initially feeling well. His had GI symptoms and then he had vomiting and diarrhea starting yesterday. Daughter reports that he vomited laying flat. He was home with his , an aid came.
He had multiple episodes of diarrhea. This morning he appeared to be in more respiratory distress.
No measured fevers. Patient denies chest pain or abdominal pain. He is seen sitting up, awake with BiPAP on. Denies swelling.
Patient has history of dementia, is aware of surroundings, does not speak much per daughter.
Medical History
Past Medical History
Past Medical History: Reports Other
Additional Past Medical History:
E coli
BPh
MDS
HTn
HLD
COPD
dementia
polycythemia
neurogenic bladder
parkinson disease
Past Surgical History: Reports Other
Additional Past Surgical History:
bone marrow transplant
hernia repair
cholecystectomy
Social History
Tobacco: Non-smoker
Alcohol: None
Drug: None
Personal:
Living: Assisted Living
Family History
Family History: Not pertinent
Allergies / Home Medications
Allergies reflects when Allergies were last updated in [facility].
Home Medications with original date entered in [facility]
Allergy/Medication List:
Allergies
Allergy/AdvReac Type Severity Reaction Status Date / Time
levofloxacin [From Levaquin] Allergy Mental Verified 06/29/24 19:08
confusion
- 'went
blank'
sulfamethoxazole Allergy Unknown Verified 06/29/24 19:08
[From Bactrim]
trimethoprim [From Bactrim] Allergy Unknown Verified 06/29/24 19:08
Home Medications
acyclovir 800 mg tablet 800 mg PO BID Infection 10/11/20
atorvastatin 20 mg tablet 20 mg PO HS High cholesterol 10/11/20
memantine 10 mg tablet 10 mg PO BID memory 10/11/20
multivitamin with folic acid 400 mcg tablet (Tab-A-Piedad) 1 tab PO DAILY Supplement 10/11/20
rivastigmine 4.6 mg/24 hour transdermal patch 1 patch transdermal DAILY parkinson 10/11/20
ascorbic acid (vitamin C) 500 mg tablet (Vitamin C) 500 mg PO DAILY Supplement 05/17/24
carbidopa 25 mg-levodopa 100 mg tablet 1 tab PO TID@0600,1400,2200 Neurological Condition 05/17/24
carbidopa ER 25 mg-levodopa 100 mg tablet,extended release 1 tab PO HS Neurological Condition 05/17/24
ipratropium bromide 21 mcg (0.03 %) nasal spray 2 spray intranasal BID Allergies 05/17/24
methenamine hippurate 1 gram tablet 1 g PO BID Infection 05/17/24
peg 400-propylene glycol (PF) 0.4 %-0.3 % eye drops in a dropperette (Systane (PF)) 1 drp BOTH EYES Q4HPRN PRN dry eyes 05/17/24
acetaminophen 325 mg tablet 650 mg PO Q4HPRN PRN mild pain/fever>100 06/10/24
bisacodyl 10 mg rectal suppository (Dulcolax (bisacodyl)) 10 mg [place] DAILYPRN PRN if mom is ineffective 06/10/24
magnesium hydroxide 400 mg/5 mL oral suspension (Milk of Magnesia) 30 ml PO DAILYPRN PRN if no bm on day 4 06/10/24
sodium phosphates 19 gram-7 gram/118 mL enema (Fleet Enema) 118 ml [place] DAILYPRN PRN if dulcolax is ineffective 06/10/24
Review of Systems
-
History Source: Patient
A 12 point ROS was completed and negative except as noted: Yes
Physical Exam
Vital Signs
Vital Signs
Temp Pulse Resp BP Pulse Ox
99.2 F 127 29 99/86 91
08/11/24 09:06 08/11/24 10:00 08/11/24 10:00 08/11/24 10:00 08/11/24 09:50
Physical Exam
General: Other (awake, alert with BiPAP on )
HEENT: PERRLA
Respiratory: No Wheezes
Cardiac: S1/S2 and Regular Rhythm
GI: Soft and Non Tender
Musculoskeletal: No Edema
Skin: Warm and Dry; No Rash
Neuro: Awake and Alert
Psych: Calm
Laboratory Results
-
08/11/24 08:25
08/11/24 09:28
Laboratory Results
PT 17.4 Sec (11.4-14.6) H 08/11/24 08:25
INR 1.40 08/11/24 08:25
APTT 43.7 Sec (23.4-35.0) H 08/11/24 08:25
Lactic Acid 10.0 mmol/L (0.7-2.0) H* 08/11/24 08:25
Total Bilirubin 0.7 mg/dl (0.2-1.3) 08/11/24 09:28
AST 46 U/L (17-59) 08/11/24 09:28
ALT Cancelled 08/11/24 08:25
Alkaline Phosphatase 104 U/L (38-126) 08/11/24 09:28
Troponin I 0.261 ng/ml H* 08/11/24 08:25
Data Reviewed
-
Diagnostic Radiology: Report Reviewed by me
Lab Data: Labs Reviewed by me
Impression/Plan
-
Mr. Urbano Hernandez is a 84 yo man with hx Parkinson's, MDS, BPH with chronic indwelling harrison and hx ESBL, dementia, recent admission 06/10-06/21/24 for TME 2/2 ESBL UTI discharged to SNF (discharged a few days [facility]) presents with vomiting/diarrhea
and increased work of breathing.
Triage VS: T 99.2, P 133, RR 32, BP 84/65 (up to 104/60 post fluids), SpO2 93%
LABS: WBC 13.8, Hg 14.2, PLT 353, Na 143, K+ 4.3, Cl 104, CO2 14, AG = 25, Glucose 129, Cr 3.3 (baseline 0.8), Lactate 10.0, Trop 0.261, BNP 9980
CXR
IMPRESSION:
Parenchymal opacities within the left mid to lower lung which appear stable from most recent radiograph of June 12, 2024, but new since radiograph of May 17, 2024. Findings most likely represent atelectasis, although there could also be a
component of scarring/chronic parenchymal disease.
Elevation right hemidiaphragm, stable. The right lung appears clear for portable AP technique.
No evidence for pulmonary edema pattern.
MAR: 1L IVF, Vanc/Cefepime
Severe Sepsis with Lactic Acidosis up to 10
Nausea/Vomiting/Diarrhea, concern for Norovirus versus C. Diff (recent antibiotics)
-admit to IMU
-GOC discussion had with patient's family at bedside. He is DNR. They are aware that regardless of treatment, possible patient will not survive this hospitalization. They would like to try treatment with fluids and antibiotics, NIPV (as below).
If patient's labs worsen or he appears to be in more distress then we would transition to comfort care
-give additional liter IVF now, trend lactate and continue to bolus as needed
-NS @ 125
-F/U testing for Norovirus, C. Diff and stool culture
Hypoxic Respiratory Failure
concern for Aspiration Pneumonia
-patient vomited laying flat, CXR with parenchymal opacities seen 06/12, clinically concern for pneumonia
-will start IV Meropenem for treatment of Aspiration pneumonia given history of ESBL, high risk resistant organisms
-NIPV - patient is DNI
-admit to IMU, as above
-NPO including medications while on BiPAP
Acute Renal Failure
-creatinine is 3.3 (baseline 0.8). Patient appears very dry on exam with hemoconcentration on labs in setting of significant GI losses
-additional IVF now
-running IVF
-repeat BMP later this afternoon
Parkinson's
-Sinemet ordered, OK to give when no longer NPO
-ACADEMIC ASSOCIATE Rivastigmine
Dementia
-ACADEMIC ASSOCIATE Memantine when/if able to take PO
GOC - plan is to treat with fluids and antibiotics but low threshold to transition to comfort care/morphine gtt if clinical status worsens. morphine 1 mg PRN ordered per discussion with family.
DVT PPx Hep SubQ
DNR/DNI
Total Critical Care Time 50 minutes. I was immediately available to the patient and staff. I personally examined, reviewed labs, diagnostic images/reports, interpretations, treatment plans, discussed patient care with other providers and family
or caregivers (if patient is unable to make decisions), entered orders as appropriate and documented the medical record.
[2024-08-11 10:32] LABS: ALT (SGPT) 53 U/L (0-50)
[2024-08-11 11:02] LABS: Band Neutrophils 48 % (0-3); Lymphocytes 4 % (20-51); Metamyelocytes 5 % (-); Monocytes 11 % (2-9); Platelets Checked Yes; Segmented Neutrophils 32 % (42-75)
[2024-08-11 11:03] LABS: Acanthocytes 1+; Anisocytosis 1+; Normal RBC Morphology No; Polychromasia Slight; Total Cells Counted 100
[2024-08-11] MEDS: NSS 1000 IV (11:21)
[2024-08-11] MEDS: MERREM 500 MG IV (11:22)
[2024-08-11] MEDS: STERILE WATER FOR INJECTION 10 ML IV (11:22)
[2024-08-11 13:27] LABS: Lactic Acid 7.2 mmol/L (0.7-2.0)
[2024-08-11] MEDS: LEVOPHED 250 IV (15:17)
--- NOTE | 2024-08-11 15:19 | W.PN.UPDATE ---
Update Note
Progress Note Update
Patient arrived in IMU hypoxic and hypotensive, receiving bolus. He is lethargic. Family at bedside. O2 sat's 80's on BiPAP and SBP 50's.
Family requests initiation of pressors for now while awaiting patient's to arrive.
IV Levophed ordered.
Once arrives will likely transition to comfort care.
Discussed gravity of situation with daughters and that patient will likely pass today.
--- NOTE | 2024-08-11 15:40 | PTCARENOTE ---
Received patient by stretcher from ED unresponsive, BPs 60s/50s, sats 68% on bipap. MD Sheldon came to bedside and discussed with family, IV fluid bolus running and levo started, up to IMU max of 8mcg/min, comfort conversation to be had. Closely
monitoring.
--- NOTE | 2024-08-11 15:47 | W.PN.UPDATE ---
Addendum entered and electronically signed by Delmy Sheldon MD 08/11/24 16:27:
*addendum SBP has been in 60's
Original Note:
Update Note
Progress Note Update
patient seen with and daughters at bedside. O2 Sat now 90's. SBP 90's on 8 of Levophed.
Family would like to continue current intervention for 'a little while longer' I discussed that we are in a middle ground because to continue intervention that is effective we need to advance care and transfer to ICU, and family states they would
not want this. They are told he may pass with current intervention within the next hour and if he were my family member I would advocate for a morphine gtt and comfort care. Family states to check back in with them in an hour to discuss clinical
status and possible transition to comfort care at that time.
--- NOTE | 2024-08-11 16:43 | W.PN.UPDATE ---
Update Note
Progress Note Update
Discussed current clinical situation with daughter, patient remains hypotensive. She reports 'it's time', family is in agreement to pursue comfort measuers.
-start IV morphine gtt with bolus PRN
-IV ativan PRN
-stop fluids, antibiotics and levophed
-after morphine gtt initiated would start weaning oxygen - discussed with RN to discuss plan with RT
[2024-08-11] MEDS: MORPHINE 100 IV (17:16)
--- NOTE | 2024-08-11 18:21 | W.PN.DEATH ---
Pronouncement of
-
Called to see patient to pronounce.
No spontaneous heart tones or respirations noted.
Patient not responsive to verbal stimuli.
Patient is pronounced .
Time of : 18:04
Date of : 08/11/24
Cause of : Septic shock secondary to aspiration pneumonia
Acute gastroenteritis secondary to norovirus
Acute hypoxic respiratory failure
Acute renal failure
Family Notified: Yes
--- NOTE | 2024-08-12 15:54 | W.DCSUMMARY ---
Discharge Summary
Discharge Data
Date of Admission: 08/11/24
Date of Discharge: 08/11/24
-
Pending Results: No
Hospital Course
Discharging Physician : Dr. Delmy Sheldon
Time of : 18:04
Cause of : Septic shock secondary to aspiration pneumonia
Acute gastroenteritis secondary to norovirus
Acute hypoxic respiratory failure
Acute renal failure
Family Notified: Yes
Primary care physician : Dr. Jeremi Lund
Hospital Course :
Mr. Urbano Hernandez is a 84 yo man with hx Parkinson's, MDS, BPH with chronic indwelling harrison and hx ESBL, dementia, recent admission 06/10-06/21/24 for TME 2/2 ESBL UTI discharged to SNF (discharged a few days davalos) presents to the ER with
vomiting/diarrhea and increased work of breathing. Triage vitals significant for RR 34, BP 84/65. Labs with WBC 13.8, CO2 14, lactate 10, Cr 3.3. CXR with bilateral parenchymal opacities. He required initiation of BiPAP in ER given work of
breathing.
GOC discussion had on admission given severe illness and poor prognosis with acute respiratory failure, severe sepsis and acute renal failure. Family opted to trial fluids, antibiotics, non-invasive respiratory support. Unfortunately over the next
several hours patient became increasingly hypoxic and hypotensive despite fluid boluses. At that point pressors were started while awaiting to arrive. After further discussion decision made to withdraw care and place on IV morphine gtt for
comfort. Patient at 18:04, family at bedside.
Important imaging findings :
CXR
IMPRESSION:
Parenchymal opacities within the left mid to lower lung which appear stable from most recent radiograph of June 12, 2024, but new since radiograph of May 17, 2024. Findings most likely represent atelectasis, although there could also be a
component of scarring/chronic parenchymal disease.
Elevation right hemidiaphragm, stable. The right lung appears clear for portable AP technique.
No evidence for pulmonary edema pattern.
Procedure findings :
Discharge Plan
-
Patient Disposition:
Date/Time
Date/Time: 08/11/24 18:04
Discharge Date and Time
Discharge Date/Time: 08/11/24 18:04
Print Language: ARMENIAN
== END 2024-08-11 18:04 | disposition expired | DRG 871 ==
LOC: IMU 11:39
PROVIDERS: ADMITTING PHYSICIAN Student in an Organized Health Care Education/Training Program; EMERGENCY PHYSICIAN Student in an Organized Health Care Education/Training Program; FAMILY PHYSICIAN Internal Medicine Geriatric Medicine
DX: A41.9 Sepsis, unspecified organism (principal); J69.0 Pneumonitis due to inhalation of food and vomit; R65.21 Severe sepsis with septic shock; J96.01 Acute respiratory failure with hypoxia; A08.11 Acute gastroenteropathy due to Norwalk agent; N17.9 Acute kidney failure, unspecified; Z11.52 Encounter for screening for COVID-19
CPT/HCPCS: 71045; 80048; 80053; 82805; 83605; 83880; 84484; 85025; 85610; 85730; 86850; 86900; 86901; 87040; 87045; 87046; 87324; 87427; 87449; 87502; 87798; 87811; 93005; 94660; 96365; 96375; 99291